=== PATIENT | male | born 1965 | race Caucasian/White ===

== ENCOUNTER 2016-11-18 17:51 | Inpatient (IN) | payer MEDICAID ==
[2016-11-18] MEDS ORDERED: Acetaminophen 650 MG in Premix Bag 1 BAG IV ONE (18:27)
[2016-11-18] MEDS ORDERED: Sodium Chloride 0.9% 1,000 ML IV SCH (18:30)
[2016-11-18] MEDS ORDERED: Acetaminophen 1,000 MG in Premix Bag 1 BAG IV ONE (18:41)
[2016-11-18] MEDS ORDERED: Piperacillin/Tazobactam 4.5 GM in Sodium Chloride 0.9% 100 ML IV SCH (19:00)
[2016-11-18] MEDS ORDERED: Insulin Regular, Human 100 Units/ML 10 ML Vial IVPUSH ONE (20:03)
[2016-11-18] MEDS ORDERED: Sodium Chloride 0.9% 100 ML IV ONE (20:34)
[2016-11-18] MEDS ORDERED: Sodium Chloride 0.9% 10 ML Syringe FLUSH PRN (20:34)
[2016-11-18] MEDS ORDERED: Iopamidol 755 Mg/ML 100 ML Bottle IV SCH (20:45)
--- NOTE | 2016-11-18 22:41 | EDM.PDOC ---
ED HPI GENERAL MEDICAL PROBLEM - General Chief Complaint: Gastrointestinal Problem Stated Complaint: NAUSEA/VOMITING/FOOD POISONING? Time Seen by Provider: 11/18/16 18:22 Source of Information: Reports: Patient History Limitations: Reports: No Limitations - History of Present Illness INITIAL COMMENTS - FREE TEXT/NARRATIVE: History of present illness: [51-year-old diabetic male who weighs 150 kg presenting with a 4 day history of nausea vomiting and fever and chills. He's had a slight cough and a little shortness of breath but otherwise no complaints. He has no chest pain no constipation or diarrhea and no dysuria. He has no dental pain or sinus pain or sore throat. He states he does have diabetic peripheral neuropathy.] Review of systems: As per history of present illness and below otherwise all systems reviewed and negative. Past medical history: As per history of present illness and as reviewed below otherwise noncontributory. Surgical history: As per history of present illness and as reviewed below otherwise noncontributory. Social history: No reported history of drug or alcohol abuse. Family history: As per history of present illness and as reviewed below otherwise noncontributory. Physical exam: HEENT: Atraumatic, normocephalic, pupils reactive, negative for conjunctival pallor or scleral icterus, mucous membranes moist, throat clear, neck supple, nontender, trachea midline. Lungs: Clear to auscultation anteriorly trouble sitting up in bed so I did not listen posteriorly, chest nontender. Heart: S1S2, regular, negative for clicks, rubs, or JVD. Abdomen: Soft, nondistended, nontender. Massively obese. Negative for masses or hepatosplenomegaly. Negative for costovertebral tenderness. Pelvis: Stable nontender. Genitourinary: Deferred. Rectal: Deferred. Extremities: Atraumatic, negative for cords or calf pain. Neurovascular unremarkable. Neuro: Awake, alert, oriented. Cranial nerves II through XII unremarkable. Cerebellum unremarkable. Motor and sensory unremarkable throughout. Exam nonfocal. Diagnostics: [CBC showed a normal white count but a left shift. D-dimer was over 2000 BNP was also elevated. CRP was high. Urinalysis is consistent with UTI. CT of the chest abdomen and pelvis revealed evidence for bibasilar consolidations that I believe are consistent with pneumonia and also bilateral pyelonephritis. See the report for details.] Therapeutics: [He's received IV fluids and a dose of IV Zosyn while in the ER.] Impression: [Bilateral pneumonia Bilateral pyelonephritis Diabetes mellitus] Plan: [I spoke with Dr. Mayo will be admitting him to [facility] as an inpatient and he'll be coming in to see him.] Definitive disposition and diagnosis as appropriate pending reevaluation and review of above. Abdomen Pain Score (Numeric/FACES): 3 - Related Data Allergies Allergy/AdvReac Type Severity Reaction Status Date / Time No Known Allergies Allergy Verified 04/01/15 12:28 Home Meds: Home Meds Atenolol [Tenormin] 25 mg PO DAILY 02/27/13 [History] metFORMIN [metFORMIN XR] 1,000 mg PO BID 02/27/13 [History] glipiZIDE [Glipizide] 10 mg PO BID 07/01/14 [History] Gabapentin [Neurontin] 600 mg PO BEDTIME 10/01/14 [History] Past Medical History HEENT History: Reports: Impaired Vision Cardiovascular History: Reports: Hypertension Musculoskeletal History: Reports: Other (See Below) Other Musculoskeletal History: neuropathy Neurological History: Reports: Vertigo Endocrine/Metabolic History: Reports: Diabetes, Type II - Infectious Disease History Infectious Disease History: Reports: Chicken Pox Social & Family History - Tobacco Use Smoking Status *Q: Never Smoker Years of Tobacco use: 12 Used Tobacco, but Quit: Yes Month Tobacco Last Used: 6 years Second Hand Smoke Exposure: No - Caffeine Use Caffeine Use: Reports: Coffee, Soda - Alcohol Use Days Per Week of Alcohol Use: 0 - Recreational Drug Use Recreational Drug Use: No ED ROS GENERAL - Review of Systems Review Of Systems: ROS reveals no pertinent complaints other than HPI. ED EXAM, GI/ABD - Physical Exam Exam: See Below Course - Vital Signs Last Recorded V/S: Last Vital Signs Temp 36.8 C 11/18/16 22:24 Pulse 83 11/18/16 22:24 Resp 16 11/18/16 22:24 BP 145/79 H 11/18/16 22:24 Pulse Ox 91 L 11/18/16 22:24 - Orders/Labs/Meds Orders: Active Orders 24 hr Category Date Time Status Admission Status [Patient Status] [ADT] Routine ADT 11/18/16 22:34 Ordered EKG Documentation Completion [RC] ASDIRECTED Care 11/18/16 18:24 Active Abdomen Pelvis w Cont [CT] Stat Exams 11/18/16 19:37 Taken Ang Chest [CT] Stat Exams 11/18/16 19:36 Taken Chest 1V Frontal [CR] Stat Exams 11/18/16 18:23 Taken CULTURE BLOOD [BC] Stat Lab 11/18/16 18:25 Received CULTURE BLOOD [BC] Stat Lab 11/18/16 18:35 Received CULTURE URINE [RM] Stat Lab 11/18/16 22:00 Received Iopamidol [Isovue-370 (76%)] Med 11/18/16 20:45 Active 100 ml IV . DIRECTED Piperacillin/Tazobactam [Zosyn] 4.5 gm Med 11/18/16 19:00 Active Sodium Chloride 0.9% [Normal Saline] 100 ml IV Q6H Sodium Chloride 0.9% [Normal Saline] 1,000 ml Med 11/18/16 18:30 Active IV ASDIRECTED Sodium Chloride 0.9% [Saline Flush] Med 11/18/16 20:34 Active 10 ml FLUSH ONETIME PRN EKG 12 Lead [EK] Stat Ther 11/18/16 18:23 Ordered Medication Orders Sodium Chloride (Normal Saline) 1,000 mls @ 300 mls/hr IV ASDIRECTED [facility] Last Admin: 11/18/16 18:45 Dose: 300 mls/hr Piperacillin Sod/Tazobactam (Sod 4.5 gm/ Sodium Chloride) 100 mls @ 200 mls/hr IV Q6H [facility] Last Admin: 11/18/16 19:28 Dose: 200 mls/hr Iopamidol (Isovue-370 (76%)) 100 ml IV . DIRECTED [facility] Last Admin: 11/18/16 21:12 Dose: 100 ml Sodium Chloride (Saline Flush) 10 ml FLUSH ONETIME PRN PRN Reason: PER RADIOLOGY PROTOCOL Labs: Laboratory Tests 11/18/16 11/18/16 11/18/16 Range/Units 18:25 18:25 18:25 WBC 9.0 (4.5-11.0) K/uL RBC 4.18 L (4.30-5.90) M/uL Hgb 13.0 (12.0-15.0) g/dL Hct 38.0 L (40.0-54.0) % MCV 91 (80-98) fL MCH 31 (27-31) pg MCHC 34 (32-36) % Plt Count 183 (150-400) K/uL Neut % (Auto) 84 H (36-66) % Lymph % (Auto) 7 L (24-44) % Towns % (Auto) 8 H (2-6) % Eos % (Auto) 0 L (2-4) % Baso % (Auto) 0 (0-1) % D-Dimer, Quantitative (0.0-400.0) ng/mL Sodium 135 L (140-148) mmol/L Potassium 3.7 (3.6-5.2) mmol/L Chloride 97 L (100-108) mmol/L Carbon Dioxide 31 (21-32) mmol/L Anion Gap 10.7 (5.0-14.0) mmol/L BUN 15 D (7-18) mg/dL Creatinine 0.9 D (0.8-1.3) mg/dL Est Cr Clr Drug Dosing 97.10 mL/min Estimated GFR (MDRD) > 60 (>60) Glucose 385 H (74-106) mg/dL Lactic Acid 1.7 (0.4-2.0) mmol/L Calcium 9.0 (8.5-10.1) mg/dL Total Bilirubin 0.8 (0.2-1.0) mg/dL AST 25 (15-37) U/L ALT 30 (12-78) U/L Alkaline Phosphatase 86 (46-116) U/L Troponin I < 0.017 (0.000-0.056) ng/mL C-Reactive Protein 25.34 H (0.0-0.3) mg/dL Iwa-G-Iirfzlhvvcs Pept (5-125) pg/mL Total Protein 7.4 (6.4-8.2) g/dL Albumin 2.4 L (3.4-5.0) g/dL Globulin 5.0 H (2.3-3.5) g/dL Albumin/Globulin Ratio 0.5 L (1.2-2.2) Amylase 33 (25-115) U/L Lipase 45 L (73-393) U/L Urine Color Urine Appearance Urine pH (4.5-8.0) Ur Specific [place] (1.008-1.030) Urine Protein (NEGATIVE) mg/dL Urine Glucose (UA) (NEGATIVE) mg/dL Urine Ketones (NEGATIVE) mg/dL Urine Occult Blood (NEGATIVE) Urine Nitrite (NEGAITVE) Urine Bilirubin (NEGATIVE) Urine Urobilinogen (NORMAL) mg/dL Ur Leukocyte Esterase (NEGATIVE) Urine RBC (0-5) Urine WBC (0-5) Ur Epithelial Cells Amorphous Sediment Urine Bacteria Urine Mucus 11/18/16 11/18/16 11/18/16 Range/Units 18:25 18:25 19:43 WBC (4.5-11.0) K/uL RBC (4.30-5.90) M/uL Hgb (12.0-15.0) g/dL Hct (40.0-54.0) % MCV (80-98) fL MCH (27-31) pg MCHC (32-36) % Plt Count (150-400) K/uL Neut % (Auto) (36-66) % Lymph % (Auto) (24-44) % Towns % (Auto) (2-6) % Eos % (Auto) (2-4) % Baso % (Auto) (0-1) % D-Dimer, Quantitative 2930 H (0.0-400.0) ng/mL Sodium (140-148) mmol/L Potassium (3.6-5.2) mmol/L Chloride (100-108) mmol/L Carbon Dioxide (21-32) mmol/L Anion Gap (5.0-14.0) mmol/L BUN (7-18) mg/dL Creatinine (0.8-1.3) mg/dL Est Cr Clr Drug Dosing mL/min Estimated GFR (MDRD) (>60) Glucose (74-106) mg/dL Lactic Acid (0.4-2.0) mmol/L Calcium (8.5-10.1) mg/dL Total Bilirubin (0.2-1.0) mg/dL AST (15-37) U/L ALT (12-78) U/L Alkaline Phosphatase (46-116) U/L Troponin I (0.000-0.056) ng/mL C-Reactive Protein (0.0-0.3) mg/dL Idn-W-Vqgdtsueuiy Pept 1629 H (5-125) pg/mL Total Protein (6.4-8.2) g/dL Albumin (3.4-5.0) g/dL Globulin (2.3-3.5) g/dL Albumin/Globulin Ratio (1.2-2.2) Amylase (25-115) U/L Lipase (73-393) U/L Urine Color Yellow Urine Appearance Slightly cloudy Urine pH 6.0 (4.5-8.0) Ur Specific [place] 1.015 (1.008-1.030) Urine Protein 100 H (NEGATIVE) mg/dL Urine Glucose (UA) 1000 H (NEGATIVE) mg/dL Urine Ketones 50 H (NEGATIVE) mg/dL Urine Occult Blood Large (NEGATIVE) Urine Nitrite Positive H (NEGAITVE) Urine Bilirubin Negative (NEGATIVE) Urine Urobilinogen Normal (NORMAL) mg/dL Ur Leukocyte Esterase Small (NEGATIVE) Urine RBC 30-40 H (0-5) Urine WBC 10-20 H (0-5) Ur Epithelial Cells Few Amorphous Sediment Not seen Urine Bacteria Many Urine Mucus Not seen Meds: Medications Generic Name Dose Route Start Last Admin Trade Name Freq PRN Reason Stop Dose Admin Sodium Chloride 1,000 mls @ 300 mls/hr 11/18/16 18:30 11/18/16 18:45 Normal Saline IV 300 mls/hr ASDIRECTED BUDDY Administration Piperacillin Sod/Tazobactam 100 mls @ 200 mls/hr 11/18/16 19:00 11/18/16 19: 28 Sod 4.5 gm/ Sodium Chloride IV 200 mls/hr Q6H BUDDY Administration Iopamidol 100 ml 11/18/16 20:45 11/18/16 21:12 Isovue-370 (76%) IV 100 ml . DIRECTED BUDDY Administration Sodium Chloride 10 ml 11/18/16 20:34 Saline Flush FLUSH ONETIME PRN PER RADIOLOGY PROTOCOL Discontinued Medications Generic Name Dose Route Start Last Admin Trade Name Freq PRN Reason Stop Dose Admin Acetaminophen 650 mg/ Premix 65 mls @ 400 mls/hr 11/18/16 18:27 11/18/16 18: 47 IV 11/18/16 18:36 Not Given NOW ONE Acetaminophen 1,000 mg/ Premix 100 mls @ 400 mls/hr 11/18/16 18:41 11/18/16 18:46 IV 11/18/16 18:55 400 mls/hr NOW ONE Administration Sodium Chloride 100 mls @ 3 mls/sec 11/18/16 20:34 11/18/16 21:05 Normal Saline IV 11/18/16 20:35 3 mls/sec ONETIME ONE Administration Insulin Human Regular 10 unit 11/18/16 20:03 11/18/16 20:36 Novolin R IVPUSH 11/18/16 20:04 10 units ONETIME ONE Administration Protocol Departure - Departure Time of Disposition: 22:40 Disposition: Admitted As Inpatient 66 Condition: Fair Clinical Impression: Pyelonephritis Pneumonia Qualifiers: Pneumonia type: due to unspecified organism Laterality: bilateral Lung location : lower lobe of lung Qualified Code(s): J18.9 - Pneumonia, unspecified organism - Discharge Information Forms: ED Department Discharge - My Orders Last 24 Hours: My Active Orders 11/18/16 18:23 Chest 1V Frontal [CR] Stat EKG 12 Lead [EK] Stat 11/18/16 18:24 EKG Documentation Completion [RC] ASDIRECTED 11/18/16 18:25 CULTURE BLOOD [BC] Stat 11/18/16 18:30 Sodium Chloride 0.9% [Normal Saline] 1,000 ml IV ASDIRECTED 11/18/16 18:35 CULTURE BLOOD [BC] Stat 11/18/16 19:00 Piperacillin/Tazobactam [Zosyn] 4.5 gm Sodium Chloride 0.9% [Normal Saline] 100 ml IV Q6H 11/18/16 19:36 Ang Chest [CT] Stat 11/18/16 19:37 Abdomen Pelvis w Cont [CT] Stat 11/18/16 20:34 Sodium Chloride 0.9% [Saline Flush] 10 ml FLUSH ONETIME PRN 11/18/16 20:45 Iopamidol [Isovue-370 (76%)] 100 ml IV . DIRECTED 11/18/16 22:00 CULTURE URINE [RM] Stat 11/18/16 22:34 Admission Status [Patient Status] [ADT] Routine - Assessment/Plan Last 24 Hours: My Active Orders 11/18/16 18:23 Chest 1V Frontal [CR] Stat EKG 12 Lead [EK] Stat 11/18/16 18:24 EKG Documentation Completion [RC] ASDIRECTED 11/18/16 18:25 CULTURE BLOOD [BC] Stat 11/18/16 18:30 Sodium Chloride 0.9% [Normal Saline] 1,000 ml IV ASDIRECTED 11/18/16 18:35 CULTURE BLOOD [BC] Stat 11/18/16 19:00 Piperacillin/Tazobactam [Zosyn] 4.5 gm Sodium Chloride 0.9% [Normal Saline] 100 ml IV Q6H 11/18/16 19:36 Ang Chest [CT] Stat 11/18/16 19:37 Abdomen Pelvis w Cont [CT] Stat 11/18/16 20:34 Sodium Chloride 0.9% [Saline Flush] 10 ml FLUSH ONETIME PRN 11/18/16 20:45 Iopamidol [Isovue-370 (76%)] 100 ml IV . DIRECTED 11/18/16 22:00 CULTURE URINE [RM] Stat 11/18/16 22:34 Admission Status [Patient Status] [ADT] Routine
[2016-11-18] MEDS ORDERED: Piperacillin/Tazobactam 3.375 GM in Sodium Chloride 0.9% 50 ML IV SCH (23:45)
[2016-11-19] MEDS ORDERED: Pantoprazole 40 MG Vial IVPUSH SCH ×2 (00:30→21:00)
[2016-11-19] MEDS: Sodium Chloride 0.9% 1,000 ML IV SCH ×4 (00:40→23:09)
[2016-11-19] MEDS ORDERED: Piperacillin/Tazobactam 3.375 GM in Sodium Chloride 0.9% 50 ML IV SCH ×2 (01:00→02:00)
--- NOTE | 2016-11-19 01:59 | HP ---
IDENTIFYING DATA: Mr. Roberto Carlos Rosales is a 51-year-old single male from [place]. CHIEF COMPLAINT: Nausea and vomiting. HISTORY OF PRESENT ILLNESS: Adult male with history of type 2 diabetes, on oral diabetic medication as well as hypertension and hyperlipidemia presents to the emergency room noting a 5-day history of upper abdominal discomfort, nausea, recurrent retching, and scant emesis as well as early satiety. He has had sensation of fevers and chilling. Bowel movements are regular without diarrhea, melena, or hematochezia. He has had mild aching at the lower back. He is voiding with good regularity noting chronic history of nocturia x2. He has had no incontinence, dysuria, or gross hematuria noted. He has had no previous abdominal surgeries. Prior hospitalizations only for an episode of ureterolithiasis in the remote past as well as I and D of scrotal abscess 1 year ago. Having difficulty with ingestion of food and fluids, he presents to the emergency room for evaluation, and lab and imaging suggested possible bilateral basilar pneumonia and/or accompanying bilateral pyelonephritis. PAST MEDICAL HISTORY: Type 2 diabetes, does not monitor blood sugars, does use Glucotrol and metformin on a regular basis. In addition, he has a history of hypertension and hyperlipidemia. He denies any history of diabetic complications. Specifically, no history of strokes, focal weakness, glaucoma, retinopathy, ischemic heart disease, chest pain, palpitations, diminished exercise tolerance, chronic renal disease, or peripheral vascular disease. He does have chronic neuropathy with use of gabapentin. HABITS: Nonsmoker. Rare use of alcohol in social settings. Caffeine intake averages one cup of coffee daily. ALLERGIES: NONE NOTED. MEDICATIONS: Amlodipine 10 mg daily, atenolol 50 mg daily, Neurontin 600 mg at bedtime, losartan 50 mg daily, Glucotrol 5 mg b.i.d., metformin 1000 mg b.i.d., and ibuprofen use p.r.n. for symptom management. IMMUNIZATIONS: Pneumococcal vaccine provided in 2015, tetanus in 2009, does not receive annual influenza vaccines. 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 FAMILY HISTORY: Denies familial history of recent acute illnesses or chronic infections. REVIEW OF SYSTEMS: NEUROLOGIC: No hearing loss, glaucoma, cataracts, retinopathy, stroke, seizures, headaches, or focal weakness. GENERAL: Fatigue is noted with illness of 5 days' duration. CARDIAC: Hypertension and hyperlipidemia. Denies any history of ischemic heart disease, chest pain, palpitations, syncope, congestive heart failure, or rheumatic fever. RESPIRATORY: Mild cough with minimal sputum production. No shortness of breath, wheeze, COPD, or asthma by history. He is a lifelong nonsmoker. GASTROINTESTINAL: As above. No history of hepatitis, jaundice, gallbladder disease, melena, or hematochezia. GENITOURINARY: Previous scrotal abscess. No chronic renal disease. No recent hematuria or ureterocolic. MUSCULOSKELETAL: Without arthralgias, general aching reported currently. PHYSICAL EXAMINATION: GENERAL: Appearance is that of an adult male resting comfortably on bed. VITAL SIGNS: Initial vitals temperature 36.8, respiratory rate 16, O2 saturation 91% on room air, blood pressure 145/79, pulse 83 and regular sinus rhythm. HEENT: Ears show normal canals and TMs. Pupils equal and reactive. Sclerae anicteric. No nasal congestion. No oropharyngeal lesions. Mucosa is dry in appearance. No inflammatory posterior pharyngeal changes. NECK: Brisk, regular carotid pulses. No bruits, JVD, adenopathy, or thyromegaly. No stridor or nuchal rigidity. LUNGS: Occasional mild rhonchi clearing with cough. Non-tachypneic. No wheezes or rales heard. Resonant to percussion. No retractions. HEART: Regular without murmurs or gallops noted. ABDOMEN: Obese, soft, nontender. No organomegaly. Active sounds. Good femoral pulses. No abdominal bruits. No percussion tenderness over the flanks. GENITOURINARY: Omitted. RECTAL: Omitted. EXTREMITIES: Warm and pink. No pitting edema. Non-diaphoretic. No cyanosis. Good radial, posterior tibial, and dorsal pedal regions. No open or ischemic skin changes. Symmetrical strength in the upper and lower extremities. LABORATORY DATA: On admission; WBC 9, hemoglobin 13, hematocrit 38, and platelet count 183,000. Sodium 135, potassium 3.7, BUN 15, creatinine 0.9, glucose elevated at 385 with calcium of 9.0, and lactic acid 1.7. Alkaline phosphatase 86 and AST 25. Troponin less than 0.017. CRP is elevated at 25. D-dimer 2930. Urinalysis reveals specific gravity of 1.015, positive dipstick for protein, glucose, ketones in blood and 10 to 20 wbc's per high- power field, 30 to 40 rbc's and positive bacteria. Urine and blood cultures are pending. CT imaging and chest x-ray suggest bilateral consolidation in the lower lung martinez as well as suggestion of bilateral pyelonephritis by imaging. IMPRESSION: 1. Presentation of fever, weakness, GI upset, and probable bilateral pyelonephritis with possible accompanying pneumonitis. 2. History of type 2 diabetes. 3. Hypertension. 4. Hyperlipidemia. 5. Peripheral neuropathy secondary to diabetic condition. PLAN: With the patient's inability to manage symptoms as an outpatient, he is admitted to [facility] inpatient status, full code status will be implemented. We will provide IV fluids, p.r.n. antiemetics, broad-spectrum antibiotics as we await blood and urine cultures. Continue to monitor blood sugars on a scheduled basis with meals and at bedtime and in addition to Glucotrol and metformin. Provide subcu NovoLog p.r.n. for blood sugars of greater than 200 mg%. We will administer IV Protonix for reasons of upper abdominal discomfort and recurrent nausea. Followup labs including blood sugar monitoring and metabolic panel are requested. Anticipate hospital stay of less than 92 hours. Candido Mackey MD /[id number]
--- NOTE | 2016-11-19 05:55 | PN ---
DATE OF SERVICE: 11/19/2016 SUBJECTIVE: A 51-year-old male was admitted yesterday evening with fevers, chills, and abdominal upset of 5 days duration. Evaluation revealed evidence of bibasilar infiltrates by chest CT as well as potential pyelonephritis with radiographic imaging identifying changes on abdominal CT. Additionally, he had hematuria, pyuria, and scant bacteria by lab review. He has rested comfortably through the night, voiding with good regularity with IV fluids. Notes with rehydration abdominal upset has resolved. He has had a mild nonproductive cough and recurrent transient desaturations when up to the restroom. Denies sputum production. No fevers or chills through the night. OBJECTIVE: VITAL SIGNS: Temperature 37.3, respiratory rate 19, O2 sats 90% on supplemental O2 at 2 L/minute, blood pressure 183/91, pulse rate 96, sinus rhythm by monitoring. NECK: Brisk carotid pulses. No bruits. LUNGS: Mild expiratory rhonchi. No wheezes or rales heard. Resonant to percussion. HEART: Regular without murmurs or gallops. ABDOMEN: Obese, soft, and nontender. No organomegaly. Active sounds. No guarding, rebound, or referred pain. EXTREMITIES: Warm and pink. No open skin lesions. BMP is ordered this morning with results pending. IMPRESSION AND PLAN: Presentation of earlier fever, chills, elevated CRP, and suggestion of bibasilar pneumonia by CT imaging. We will continue with systemic antibiotics with IV Zosyn, fluid hydration, and diabetic monitoring with administration of Glucotrol, metformin, and p.r.n. NovoLog. Allow light activity as tolerated. Continue to monitor O2 sats with supplemental O2 provided. Broad-spectrum antibiotic should also provide reasonable coverage for identified bacteria and urinalysis. Anticipate ongoing systemic antibiotics with parenteral route of administration and potential transition to oral antibiotics and outpatient followup. If showing interval improvement over the next 24-48 hours, we will request that hospitalist service assume care of the patient. Candido Mackey MD /[id number]
[2016-11-19] MEDS ORDERED: Insulin Aspart 100 Units/ML 3 ML Pen SUBCUT SCH ×2 (07:30)
--- NOTE | 2016-11-19 08:29 | CR ---
Heart size within normal limits. Pulmonary vasculature within normal limits. No definitive focal con solidation.
[2016-11-19] MEDS: metFORMIN 500 MG Tab PO SCH ×2 (08:54→17:36)
[2016-11-19] MEDS: glipiZIDE 5 MG Tab PO SCH ×2 (08:55→17:36)
[2016-11-19] MEDS: Losartan 50 MG Tab PO SCH ×2 (08:55→22:11)
[2016-11-19] MEDS: Piperacillin/Tazobactam/Dext 3.375 GM in Premix Bag 1 BAG IV SCH ×3 (08:58→20:23)
[2016-11-19] MEDS: Ondansetron 4 MG/2 ML SDV IV PRN (09:08)
[2016-11-19] MEDS: Atenolol 25 MG Tab PO SCH (09:25)
[2016-11-19] MEDS: Insulin Aspart 100 Units/ML 3 ML Pen SUBCUT SCH ×3 (13:10→22:01)
[2016-11-19] MEDS: Acetaminophen 325 MG Tab PO PRN ×2 (14:57→20:38)
[2016-11-19] MEDS: Gabapentin 300 MG Cap PO SCH (22:01)
[2016-11-19] MEDS: Pantoprazole 40 MG Tab.CR PO SCH (22:02)
[2016-11-19] MEDS: amLODIPine 10 MG Tab PO SCH (22:04)
[2016-11-20] MEDS: Piperacillin/Tazobactam/Dext 3.375 GM in Premix Bag 1 BAG IV SCH ×4 (02:52→21:00)
[2016-11-20] MEDS: Sodium Chloride 0.9% 1,000 ML IV SCH (07:46)
[2016-11-20] MEDS: metFORMIN 500 MG Tab PO SCH ×2 (07:46→16:47)
[2016-11-20] MEDS: glipiZIDE 5 MG Tab PO SCH ×2 (07:47→16:48)
[2016-11-20] MEDS: Insulin Aspart 100 Units/ML 3 ML Pen SUBCUT SCH ×4 (07:51→22:08)
[2016-11-20] MEDS: Atenolol 25 MG Tab PO SCH ×2 (07:57→08:22)
[2016-11-20] MEDS: Losartan 50 MG Tab PO SCH ×3 (07:57→21:47)
[2016-11-20] MEDS: Potassium Chloride 20 MEQ Tab.ER PO SCH ×2 (09:00→16:48)
[2016-11-20] MEDS ORDERED: Sodium Chloride 0.9% 1,000 ML IV SCH (14:51)
--- NOTE | 2016-11-20 14:52 | PCM.PN ---
- General Info Date of Service: 11/20/16 Functional Status: Reports: Pain Controlled, Tolerating Diet, Ambulating - Review of Systems General: Reports: Fever, Weakness Gastrointestinal: Reports: Abdominal Pain Systems Review Comment:: No acute events overnight. Abdominal pain has been slowly improving. Appetite is getting a little better. Fever curve is improving. Blood sugar still moderately elevated. He is coughing a little bit more today but does not feel significantly short of breath. One blood culture and his urine culture growing gram-negative rods. Tolerating current antibiotics well. - Patient Data Vitals - Most Recent: Last Vital Signs Temp 37.5 C 11/20/16 10:32 Pulse 86 11/20/16 10:32 Resp 20 11/20/16 10:32 BP 133/79 11/20/16 10:32 Pulse Ox 92 L 11/20/16 10:32 Weight - Most Recent: 138.4 kg I&O - Last 24 Hours: Intake & Output 11/19/16 11/20/16 11/20/16 22:59 06:59 14:59 Intake Total 1831 1895 1400 Output Total 200 500 300 Balance 1631 1395 1100 Lab Results Last 24 Hours: Laboratory Results - last 24 hr 11/20/16 11/20/16 Range/Units 05:15 05:15 WBC 7.8 (4.5-11.0) K/uL RBC 3.82 L (4.30-5.90) M/uL Hgb 11.8 L (12.0-15.0) g/dL Hct 35.6 L (40.0-54.0) % MCV 93 (80-98) fL MCH 31 (27-31) pg MCHC 33 (32-36) % Plt Count 194 (150-400) K/uL Sodium 142 (140-148) mmol/L Potassium 3.2 L (3.6-5.2) mmol/L Chloride 104 (100-108) mmol/L Carbon Dioxide 32 (21-32) mmol/L Anion Gap 9.2 (5.0-14.0) mmol/L BUN 11 (7-18) mg/dL Creatinine 0.7 L (0.8-1.3) mg/dL Est Cr Clr Drug Dosing 124.43 mL/min Estimated GFR (MDRD) > 60 (>60) Glucose 186 H (74-106) mg/dL Calcium 7.9 L (8.5-10.1) mg/dL Med Orders - Current: Current Medications Acetaminophen (Tylenol) 650 mg PO Q4H PRN PRN Reason: Pain (Mild 1-3)/fever Last Admin: 11/19/16 20:38 Dose: 650 mg Amlodipine Besylate (Norvasc) 10 mg PO BEDTIME [facility] Last Admin: 11/19/16 22:04 Dose: 10 mg Atenolol (Tenormin) 25 mg PO DAILY [facility] Last Admin: 11/20/16 08:22 Dose: Not Given Gabapentin (Neurontin) 600 mg PO BEDTIME [facility] Last Admin: 11/19/16 22:01 Dose: 600 mg Glipizide (Glucotrol) 10 mg PO BIDMEALS [facility] Last Admin: 11/20/16 07:47 Dose: 10 mg Piperacillin/Tazobactam/ (Dextrose 3.375 gm/ Premix) 50 mls @ 100 mls/hr IV Q6H [facility] Last Admin: 11/20/16 07:49 Dose: 100 mls/hr Insulin Aspart (Novolog) 0 unit SUBCUT QIDACANDBED [facility] PRN Reason: Protocol Last Admin: 11/20/16 11:48 Dose: 6 units Iopamidol (Isovue-370 (76%)) 100 ml IV . DIRECTED [facility] Last Admin: 11/18/16 21:12 Dose: 100 ml Losartan Potassium (Cozaar) 50 mg PO BID [facility] Last Admin: 11/20/16 08:22 Dose: Not Given Metformin HCl (Glucophage) 1,000 mg PO BIDMEALS [facility] Last Admin: 11/20/16 07:46 Dose: 1,000 mg Ondansetron HCl (Zofran) 4 mg IV Q4H PRN PRN Reason: Nausea/Vomiting Last Admin: 11/19/16 09:08 Dose: 4 mg Pantoprazole Sodium (Protonix) 40 mg PO BEDTIME [facility] Last Admin: 11/19/16 22:02 Dose: 40 mg Potassium Chloride (Klor-Con M20) 40 meq PO BIDMEALS [facility] Last Admin: 11/20/16 09:00 Dose: 40 meq Sodium Chloride (Saline Flush) 10 ml FLUSH ONETIME PRN PRN Reason: PER RADIOLOGY PROTOCOL Discontinued Medications Sodium Chloride (Normal Saline) 1,000 mls @ 300 mls/hr IV ASDIRECTED [facility] Last Admin: 11/18/16 18:45 Dose: 300 mls/hr Acetaminophen 650 mg/ Premix 65 mls @ 400 mls/hr IV NOW ONE Stop: 11/18/16 18:36 Last Admin: 11/18/16 18:47 Dose: Not Given Acetaminophen 1,000 mg/ Premix 100 mls @ 400 mls/hr IV NOW ONE Stop: 11/18/16 18:55 Last Admin: 11/18/16 18:46 Dose: 400 mls/hr Piperacillin Sod/Tazobactam (Sod 4.5 gm/ Sodium Chloride) 100 mls @ 200 mls/hr IV Q6H [facility] Last Admin: 11/18/16 19:28 Dose: 200 mls/hr Sodium Chloride (Normal Saline) 100 mls @ 3 mls/sec IV ONETIME ONE Stop: 11/18/16 20:35 Last Admin: 11/18/16 21:05 Dose: 3 mls/sec Piperacillin Sod/Tazobactam (Sod 3.375 gm/ Sodium Chloride) 50 mls @ 100 mls/ hr IV Q6H [facility] Last Admin: 11/19/16 07:26 Dose: Not Given Sodium Chloride (Normal Saline) 1,000 mls @ 150 mls/hr IV ASDIRECTED [facility] Last Admin: 11/19/16 07:44 Dose: 150 mls/hr Piperacillin Sod/Tazobactam (Sod 3.375 gm/ Sodium Chloride) 50 mls @ 100 mls/ hr IV Q6H [facility] Piperacillin Sod/Tazobactam (Sod 3.375 gm/ Sodium Chloride) 50 mls @ 100 mls/ hr IV Q6H [facility] Last Admin: 11/19/16 02:18 Dose: 100 mls/hr Sodium Chloride (Normal Saline) 1,000 mls @ 125 mls/hr IV ASDIRECTED [facility] Last Admin: 11/20/16 07:46 Dose: 125 mls/hr Insulin Aspart (Novolog) 0 unit SUBCUT BIDAC [facility] Insulin Aspart (Novolog) 0 unit SUBCUT BIDAC [facility] Last Admin: 11/19/16 09:20 Dose: 5 units Insulin Human Regular (Novolin R) 10 unit IVPUSH ONETIME ONE PRN Reason: Protocol Stop: 11/18/16 20:04 Last Admin: 11/18/16 20:36 Dose: 10 units Pantoprazole Sodium (Protonix Iv) 40 mg IVPUSH Q24H [facility] Last Admin: 11/19/16 00:43 Dose: 40 mg Pantoprazole Sodium (Protonix Iv) 40 mg IVPUSH Q24H [facility] - Exam Quality Assessment: Supplemental Oxygen General: Alert, Oriented, Cooperative, No Acute Distress Neck: Supple Lungs: Normal Respiratory Effort, Rales (few at both bases). No: Wheezing Cardiovascular: Regular Rate, Regular Rhythm GI/Abdominal Exam: Soft, No Distention Extremities: No Pedal Edema. No: Increased Warmth Skin: Warm, Dry Psy/Mental Status: Alert, Normal Affect - Problem List Review Problem List Initiated/Reviewed/Updated: Yes - My Orders Last 24 Hours: My Active Orders 11/19/16 17:00 Insulin Aspart [NovoLOG] See Protocol SUBCUT QIDACANDBED 11/19/16 21:00 Pantoprazole [ProTONIX] 40 mg PO BEDTIME 11/20/16 09:00 Potassium Chloride [Klor-Con M20] 40 meq PO BIDMEALS 11/20/16 14:51 Sodium Chloride 0.9% [Normal Saline] 1,000 ml IV ASDIRECTED 11/21/16 05:00 BASIC METABOLIC PANEL,BMP [CHEM] Timed CBC W/O DIFF,HEMOGRAM [HEME] Timed (1) - Plan Plan:: Assessment and plan - Bilateral pyelonephritis - 1 blood culture and urine culture growing gram- negative rods. Tolerating current antibiotics and clinically improving. -Continue current antibiotics -Pain control -Saline lock IV fluids -Follow-up cultures Probable bilateral pneumonia - patchy lower lung infiltrates noted on CT scan though they were not impressive. Coughing a little bit and mildly hypoxic. Clinically improving. -Continue antibiotics -Wean oxygen as able Type 2 diabetes mellitus - Sugars moderately elevated at the time of presentation but have been improving. He is receiving supplemental insulin in addition to his usual home medications. -Continue home medications -Sliding-scale insulin Maintenance issues - - DVT prophylaxis - SCDs - GI prophylaxis - PPI - Nutrition - consistent carbohydrate diet Disposition - Anticipate discharge to home after the hospital stay Adrian Melton M.D.
[2016-11-20] MEDS: Sodium Chloride 0.9% 250 ML IV SCH (21:00)
[2016-11-20] MEDS: Pantoprazole 40 MG Tab.CR PO SCH (21:47)
[2016-11-20] MEDS: Gabapentin 300 MG Cap PO SCH (21:47)
[2016-11-20] MEDS: amLODIPine 10 MG Tab PO SCH (21:49)
[2016-11-20] MEDS: Acetaminophen 325 MG Tab PO PRN (21:53)
[2016-11-21] MEDS: Piperacillin/Tazobactam/Dext 3.375 GM in Premix Bag 1 BAG IV SCH ×4 (02:27→20:32)
[2016-11-21] MEDS: Ondansetron 4 MG/2 ML SDV IV PRN (05:21)
[2016-11-21] MEDS: Insulin Aspart 100 Units/ML 3 ML Pen SUBCUT SCH ×4 (07:29→20:39)
[2016-11-21] MEDS: metFORMIN 500 MG Tab PO SCH ×2 (07:30→17:28)
[2016-11-21] MEDS: glipiZIDE 5 MG Tab PO SCH ×2 (07:31→17:29)
[2016-11-21] MEDS: Potassium Chloride 20 MEQ Tab.ER PO SCH ×2 (07:32→17:29)
[2016-11-21] MEDS: Sodium Chloride 0.9% 250 ML IV SCH (07:36)
[2016-11-21] MEDS: Atenolol 25 MG Tab PO SCH (09:13)
[2016-11-21] MEDS: Losartan 50 MG Tab PO SCH ×2 (09:13→20:34)
--- NOTE | 2016-11-21 15:04 | PCM.PN ---
- General Info Date of Service: 11/21/16 Functional Status: Reports: Pain Controlled, Tolerating Diet, Ambulating - Review of Systems General: Denies: Fever Pulmonary: Reports: Cough Gastrointestinal: Denies: Abdominal Pain Systems Review Comment:: no acute events overnight. Abdominal pain has been improving. Fever curve is improving. Blood culture and urine culture are growing Klebsiella. Blood sugars have been improving. Cough is a little bit more productive. Still requiring a small quantity of supplemental oxygen. - Patient Data Vitals - Most Recent: Last Vital Signs Temp 37.1 C 11/21/16 14:00 Pulse 82 11/21/16 14:00 Resp 20 11/21/16 14:00 BP 157/81 H 11/21/16 14:00 Pulse Ox 95 11/21/16 14:00 Weight - Most Recent: 138.4 kg I&O - Last 24 Hours: Intake & Output 11/21/16 11/21/16 11/21/16 06:59 14:59 22:59 Intake Total 607 937 Output Total 600 850 Balance 7 87 Lab Results Last 24 Hours: Laboratory Results - last 24 hr 11/21/16 11/21/16 Range/Units 05:52 05:52 WBC 7.4 (4.5-11.0) K/uL RBC 3.70 L (4.30-5.90) M/uL Hgb 11.8 L (12.0-15.0) g/dL Hct 34.5 L (40.0-54.0) % MCV 93 (80-98) fL MCH 32 H (27-31) pg MCHC 34 (32-36) % Plt Count 231 (150-400) K/uL Sodium 143 (140-148) mmol/L Potassium 3.2 L (3.6-5.2) mmol/L Chloride 105 (100-108) mmol/L Carbon Dioxide 31 (21-32) mmol/L Anion Gap 10.2 (5.0-14.0) mmol/L BUN 8 (7-18) mg/dL Creatinine 0.7 L (0.8-1.3) mg/dL Est Cr Clr Drug Dosing 124.43 mL/min Estimated GFR (MDRD) > 60 (>60) Glucose 163 H (74-106) mg/dL Calcium 8.0 L (8.5-10.1) mg/dL Med Orders - Current: Current Medications Acetaminophen (Tylenol) 650 mg PO Q4H PRN PRN Reason: Pain (Mild 1-3)/fever Last Admin: 11/20/16 21:53 Dose: 650 mg Amlodipine Besylate (Norvasc) 10 mg PO BEDTIME [facility] Last Admin: 11/20/16 21:49 Dose: 10 mg Atenolol (Tenormin) 25 mg PO DAILY [facility] Last Admin: 11/21/16 09:13 Dose: 25 mg Gabapentin (Neurontin) 600 mg PO BEDTIME [facility] Last Admin: 11/20/16 21:47 Dose: 600 mg Glipizide (Glucotrol) 10 mg PO BIDMEALS [facility] Last Admin: 11/21/16 07:31 Dose: 10 mg Piperacillin/Tazobactam/ (Dextrose 3.375 gm/ Premix) 50 mls @ 100 mls/hr IV Q6H [facility] Stop: 11/22/16 02:00 Last Admin: 11/21/16 14:11 Dose: 100 mls/hr Sodium Chloride (Normal Saline) 250 mls @ 25 mls/hr IV ASDIRECTED [facility] Last Admin: 11/21/16 07:36 Dose: 25 mls/hr Insulin Aspart (Novolog) 0 unit SUBCUT QIDACANDBED [facility] PRN Reason: Protocol Last Admin: 11/21/16 12:12 Dose: 6 units Iopamidol (Isovue-370 (76%)) 100 ml IV . DIRECTED [facility] Last Admin: 11/18/16 21:12 Dose: 100 ml Losartan Potassium (Cozaar) 50 mg PO BID [facility] Last Admin: 11/21/16 09:13 Dose: 50 mg Metformin HCl (Glucophage) 1,000 mg PO BIDMEALS [facility] Last Admin: 11/21/16 07:30 Dose: 1,000 mg Ondansetron HCl (Zofran) 4 mg IV Q4H PRN PRN Reason: Nausea/Vomiting Last Admin: 11/21/16 05:21 Dose: 4 mg Pantoprazole Sodium (Protonix) 40 mg PO BEDTIME [facility] Last Admin: 11/20/16 21:47 Dose: 40 mg Potassium Chloride (Klor-Con M20) 40 meq PO BIDMEALS [facility] Last Admin: 11/21/16 07:32 Dose: 40 meq Sodium Chloride (Saline Flush) 10 ml FLUSH ONETIME PRN PRN Reason: PER RADIOLOGY PROTOCOL Discontinued Medications Sodium Chloride (Normal Saline) 1,000 mls @ 300 mls/hr IV ASDIRECTED [facility] Last Admin: 11/18/16 18:45 Dose: 300 mls/hr Acetaminophen 650 mg/ Premix 65 mls @ 400 mls/hr IV NOW ONE Stop: 11/18/16 18:36 Last Admin: 11/18/16 18:47 Dose: Not Given Acetaminophen 1,000 mg/ Premix 100 mls @ 400 mls/hr IV NOW ONE Stop: 11/18/16 18:55 Last Admin: 11/18/16 18:46 Dose: 400 mls/hr Piperacillin Sod/Tazobactam (Sod 4.5 gm/ Sodium Chloride) 100 mls @ 200 mls/hr IV Q6H [facility] Last Admin: 11/18/16 19:28 Dose: 200 mls/hr Sodium Chloride (Normal Saline) 100 mls @ 3 mls/sec IV ONETIME ONE Stop: 11/18/16 20:35 Last Admin: 11/18/16 21:05 Dose: 3 mls/sec Piperacillin Sod/Tazobactam (Sod 3.375 gm/ Sodium Chloride) 50 mls @ 100 mls/ hr IV Q6H [facility] Last Admin: 11/19/16 07:26 Dose: Not Given Sodium Chloride (Normal Saline) 1,000 mls @ 150 mls/hr IV ASDIRECTED [facility] Last Admin: 11/19/16 07:44 Dose: 150 mls/hr Piperacillin Sod/Tazobactam (Sod 3.375 gm/ Sodium Chloride) 50 mls @ 100 mls/ hr IV Q6H [facility] Piperacillin Sod/Tazobactam (Sod 3.375 gm/ Sodium Chloride) 50 mls @ 100 mls/ hr IV Q6H [facility] Last Admin: 11/19/16 02:18 Dose: 100 mls/hr Sodium Chloride (Normal Saline) 1,000 mls @ 125 mls/hr IV ASDIRECTED [facility] Last Admin: 11/20/16 07:46 Dose: 125 mls/hr Sodium Chloride (Normal Saline) 1,000 mls @ 25 mls/hr IV ASDIRECTED [facility] Insulin Aspart (Novolog) 0 unit SUBCUT BIDAC [facility] Insulin Aspart (Novolog) 0 unit SUBCUT BIDAC [facility] Last Admin: 11/19/16 09:20 Dose: 5 units Insulin Human Regular (Novolin R) 10 unit IVPUSH ONETIME ONE PRN Reason: Protocol Stop: 11/18/16 20:04 Last Admin: 11/18/16 20:36 Dose: 10 units Pantoprazole Sodium (Protonix Iv) 40 mg IVPUSH Q24H [facility] Last Admin: 11/19/16 00:43 Dose: 40 mg Pantoprazole Sodium (Protonix Iv) 40 mg IVPUSH Q24H [facility] - Exam Quality Assessment: Supplemental Oxygen General: Alert, Oriented, Cooperative, No Acute Distress Neck: Supple Lungs: Normal Respiratory Effort, Rales (few right lung base) Cardiovascular: Regular Rate, Regular Rhythm GI/Abdominal Exam: Soft, No Distention Extremities: No Pedal Edema. No: Increased Warmth Skin: Warm, Dry Psy/Mental Status: Alert, Normal Affect - Problem List Review Problem List Initiated/Reviewed/Updated: Yes - My Orders Last 24 Hours: My Active Orders 11/20/16 22:07 Sodium Chloride 0.9% [Normal Saline] 250 ml IV ASDIRECTED 11/22/16 05:00 BASIC METABOLIC PANEL,BMP [CHEM] Timed 11/22/16 09:00 Amoxicillin/Clavulanate K [Augmentin 875 MG/125 MG] 1 tab PO BID - Plan Plan:: Assessment and plan - Bilateral pyelonephritis - cultures growing Klebsiella that is nearly pansensitive. -Continue current antibiotics today, transition to oral medications in the morning -Pain control -Saline lock IV fluids Bilateral pneumonia - patchy lower lung infiltrates noted on CT scan though they were not impressive. Coughing a little bit and still mildly hypoxic. Clinically improving. -Continue antibiotics -Wean oxygen as able Type 2 diabetes mellitus - Sugars have been improving with treatment for the infection. -Continue home medications -Sliding-scale insulin Maintenance issues - - DVT prophylaxis - SCDs - GI prophylaxis - PPI - Nutrition - consistent carbohydrate diet Disposition - Anticipate discharge to home after the hospital stay, hopefully tomorrow if we can wean him off the supplemental oxygen. Adrian Melton M.D.
[2016-11-21] MEDS: amLODIPine 10 MG Tab PO SCH (20:34)
[2016-11-21] MEDS: Pantoprazole 40 MG Tab.CR PO SCH (20:34)
[2016-11-21] MEDS: Gabapentin 300 MG Cap PO SCH (20:34)
[2016-11-22] MEDS: Piperacillin/Tazobactam/Dext 3.375 GM in Premix Bag 1 BAG IV SCH (02:12)
[2016-11-22 07:43] VITALS: BP 137/80
[2016-11-22] MEDS: Atenolol 25 MG Tab PO SCH (08:40)
[2016-11-22] MEDS: Losartan 50 MG Tab PO SCH (08:40)
[2016-11-22] MEDS: metFORMIN 500 MG Tab PO SCH (08:40)
[2016-11-22] MEDS: glipiZIDE 5 MG Tab PO SCH (08:41)
[2016-11-22] MEDS: Potassium Chloride 20 MEQ Tab.ER PO SCH (08:41)
[2016-11-22] MEDS: Insulin Aspart 100 Units/ML 3 ML Pen SUBCUT SCH ×2 (08:41→11:37)
[2016-11-22] MEDS ORDERED: Amoxicillin/Clavulanate K 875-125 MG Tab PO SCH (09:00)
--- NOTE | 2016-11-22 11:53 | PCM.DCSUM1 ---
Discharge Summary - Hospital Course Brief History: 51-year-old male with history of diabetes and obesity who presented with fever, abdominal pain and vomiting. He was admitted for management of bilateral pyelonephritis and bilateral pneumonia. - Discharge Data Discharge Date: 11/22/16 Discharge Disposition: Home, Self-Care 01 Condition: Good - Discharge Diagnosis/Problem(s) (1) Pneumonia SNOMED Code(s): 135431219 ICD Code: J18.9 - PNEUMONIA, UNSPECIFIED ORGANISM Status: Acute Qualifiers: Pneumonia type: due to Klebsiella pneumoniae Laterality: bilateral Lung location: lower lobe of lung Qualified Code(s): J15.0 - Pneumonia due to Klebsiella pneumoniae (2) Pyelonephritis SNOMED Code(s): 63356941 ICD Code: N12 - TUBULO-INTERSTITIAL NEPHRITIS, NOT SPCF ACUTE OR CHRONIC Status: Acute (3) Diabetes mellitus SNOMED Code(s): 72268885 ICD Code: E11.9 - TYPE 2 DIABETES MELLITUS WITHOUT COMPLICATIONS Status: Chronic Qualifiers: Diabetes mellitus type: type 2 Diabetes mellitus complication status: with neurologic complications Diabetes mellitus complication detail: with polyneuropathy 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 Workup in the emergency room was suggestive of both bilateral pyelonephritis as well as a bilateral lower lobe pneumonia. There was significant hyperglycemia at the time of presentation. He was admitted to the hospital and started on broad-spectrum antibiotics. We provided fluids and insulin as well as supplemental oxygen and symptom management. Overnight following admission there were no acute issues. Blood sugars did trend down. Vital signs were stable other than his mild hypoxia. Broad-spectrum antibiotics were continued and over the next couple of days he did show slow but steady improvement. His abdominal pain with nausea and vomiting both improved and resolved. His urine culture grew out Klebsiella which was essentially pansensitive. His respiratory status has made slow but steady improvement with antibiotic therapy and we've been able to wean him off supplemental oxygen. He has had steady improvement in his strength and has been ambulating and getting around independently. Blood sugar control has improved during the course of the hospital stay. I was able to transition him to oral antibiotics with no change in his condition. I believe he is safe for outpatient management at this time. I have elected for a slightly longer course of antibiotics given his bilateral pyelonephritis on top of his bilateral pneumonia. He will continue his usual diabetes medications. Follow-up will be as needed if symptoms do not continue to improve. - Patient Instructions Diet: Diabetic Diet Activity: As Tolerated Driving: May Drive Today Showering/Bathing: May Shower Notify Provider of: Fever, Increased Pain, Nausea and/or Vomiting Other/Special Instructions: 1. You were in the hospital for management of both bilateral pneumonia and bilateral pyelonephritis. Both of these conditions are improving with antibiotic therapy. I recommend 7 additional days of antibiotic therapy with amoxicillin/clavulanic acid (Augmentin). You should take this medication twice daily with food to avoid stomach upset. 2. You may maintain activity as tolerated but I would recommend avoiding strenuous activities for the next several days. Slowly build up your activity and your endurance. 3. Please follow-up if your symptoms do not continue to get better or if they get worse. 4. Please seek immediate medical attention if you develop fever greater than 101, have acute onset of shortness of breath, persistent vomiting or severe abdominal pain. - Discharge Plan Prescriptions/Med Rec: Amoxicillin/Clavulanate K [Augmentin 875-125 MG] 1 tab PO BID #14 tablet Home Medications: Home Meds Atenolol [Tenormin] 25 mg PO DAILY 02/27/13 [History] glipiZIDE [Glipizide] 10 mg PO BID 07/01/14 [History] Gabapentin [Neurontin] 600 mg PO BEDTIME 10/01/14 [History] metFORMIN HCl [Metformin HCl] 1,000 mg PO BIDAC 11/19/16 [History] Amoxicillin/Clavulanate K [Augmentin 875-125 MG] 1 tab PO BID #14 tablet [Rx] Patient Handouts: Pyelonephritis, Adult, Amoxicillin; Clavulanic Acid tablets Referrals: Dwayne Pacheco MD [Primary Care Provider] - (follow-up with Dr. Pacheco if your symptoms do not continue to improve or if they get worse) - Discharge Summary/Plan Comment DC Time >30 min.: No (25) - Patient Data Vitals - Most Recent: Last Vital Signs Temp 36.3 C 11/22/16 07:40 Pulse 55 L 11/22/16 08:40 Resp 18 11/22/16 07:40 BP 137/80 11/22/16 08:40 Pulse Ox 99 11/22/16 07:40 Weight - Most Recent: 138.4 kg I&O - Last 24 hours: Intake & Output 11/21/16 11/22/16 11/22/16 22:59 06:59 14:59 Intake Total 388 410 360 Output Total 600 1150 Balance -212 -740 360 Lab Results - Last 24 hrs: Laboratory Results - last 24 hr 11/22/16 Range/Units 05:22 Sodium 141 (140-148) mmol/L Potassium 3.3 L (3.6-5.2) mmol/L Chloride 105 (100-108) mmol/L Carbon Dioxide 33 H (21-32) mmol/L Anion Gap 6.3 (5.0-14.0) mmol/L BUN 5 L (7-18) mg/dL Creatinine 0.6 L (0.8-1.3) mg/dL Est Cr Clr Drug Dosing 145.17 mL/min Estimated GFR (MDRD) > 60 (>60) Glucose 173 H (74-106) mg/dL Calcium 8.2 L (8.5-10.1) mg/dL Med Orders - Current: Current Medications Acetaminophen (Tylenol) 650 mg PO Q4H PRN PRN Reason: Pain (Mild 1-3)/fever Last Admin: 11/20/16 21:53 Dose: 650 mg Amlodipine Besylate (Norvasc) 10 mg PO BEDTIME [facility] Last Admin: 11/21/16 20:34 Dose: 10 mg Amoxicillin/Clavulanate Potassium (Augmentin 875 Mg/125 Mg) 1 tab PO BID [facility] Last Admin: 11/22/16 08:40 Dose: 1 tab Atenolol (Tenormin) 25 mg PO DAILY [facility] Last Admin: 11/22/16 08:40 Dose: 25 mg Gabapentin (Neurontin) 600 mg PO BEDTIME [facility] Last Admin: 11/21/16 20:34 Dose: 600 mg Glipizide (Glucotrol) 10 mg PO BIDMEALS [facility] Last Admin: 11/22/16 08:41 Dose: 10 mg Sodium Chloride (Normal Saline) 250 mls @ 25 mls/hr IV ASDIRECTED [facility] Last Admin: 11/21/16 07:36 Dose: 25 mls/hr Insulin Aspart (Novolog) 0 unit SUBCUT QIDACANDBED [facility] PRN Reason: Protocol Last Admin: 11/22/16 11:37 Dose: 6 units Iopamidol (Isovue-370 (76%)) 100 ml IV . DIRECTED [facility] Last Admin: 11/18/16 21:12 Dose: 100 ml Losartan Potassium (Cozaar) 50 mg PO BID [facility] Last Admin: 11/22/16 08:40 Dose: 50 mg Metformin HCl (Glucophage) 1,000 mg PO BIDMEALS [facility] Last Admin: 11/22/16 08:40 Dose: 1,000 mg Ondansetron HCl (Zofran) 4 mg IV Q4H PRN PRN Reason: Nausea/Vomiting Last Admin: 11/21/16 05:21 Dose: 4 mg Pantoprazole Sodium (Protonix) 40 mg PO BEDTIME [facility] Last Admin: 11/21/16 20:34 Dose: 40 mg Potassium Chloride (Klor-Con M20) 40 meq PO BIDMEALS [facility] Last Admin: 11/22/16 08:41 Dose: 40 meq Sodium Chloride (Saline Flush) 10 ml FLUSH ONETIME PRN PRN Reason: PER RADIOLOGY PROTOCOL Discontinued Medications Sodium Chloride (Normal Saline) 1,000 mls @ 300 mls/hr IV ASDIRECTED [facility] Last Admin: 11/18/16 18:45 Dose: 300 mls/hr Acetaminophen 650 mg/ Premix 65 mls @ 400 mls/hr IV NOW ONE Stop: 11/18/16 18:36 Last Admin: 11/18/16 18:47 Dose: Not Given Acetaminophen 1,000 mg/ Premix 100 mls @ 400 mls/hr IV NOW ONE Stop: 11/18/16 18:55 Last Admin: 11/18/16 18:46 Dose: 400 mls/hr Piperacillin Sod/Tazobactam (Sod 4.5 gm/ Sodium Chloride) 100 mls @ 200 mls/hr IV Q6H [facility] Last Admin: 11/18/16 19:28 Dose: 200 mls/hr Sodium Chloride (Normal Saline) 100 mls @ 3 mls/sec IV ONETIME ONE Stop: 11/18/16 20:35 Last Admin: 11/18/16 21:05 Dose: 3 mls/sec Piperacillin Sod/Tazobactam (Sod 3.375 gm/ Sodium Chloride) 50 mls @ 100 mls/ hr IV Q6H [facility] Last Admin: 11/19/16 07:26 Dose: Not Given Sodium Chloride (Normal Saline) 1,000 mls @ 150 mls/hr IV ASDIRECTED [facility] Last Admin: 11/19/16 07:44 Dose: 150 mls/hr Piperacillin Sod/Tazobactam (Sod 3.375 gm/ Sodium Chloride) 50 mls @ 100 mls/ hr IV Q6H [facility] Piperacillin Sod/Tazobactam (Sod 3.375 gm/ Sodium Chloride) 50 mls @ 100 mls/ hr IV Q6H [facility] Last Admin: 11/19/16 02:18 Dose: 100 mls/hr Piperacillin/Tazobactam/ (Dextrose 3.375 gm/ Premix) 50 mls @ 100 mls/hr IV Q6H [facility] Stop: 11/22/16 02:00 Last Admin: 11/22/16 02:12 Dose: 100 mls/hr Sodium Chloride (Normal Saline) 1,000 mls @ 125 mls/hr IV ASDIRECTED [facility] Last Admin: 11/20/16 07:46 Dose: 125 mls/hr Sodium Chloride (Normal Saline) 1,000 mls @ 25 mls/hr IV ASDIRECTED [facility] Insulin Aspart (Novolog) 0 unit SUBCUT BIDAC [facility] Insulin Aspart (Novolog) 0 unit SUBCUT BIDAC [facility] Last Admin: 11/19/16 09:20 Dose: 5 units Insulin Human Regular (Novolin R) 10 unit IVPUSH ONETIME ONE PRN Reason: Protocol Stop: 11/18/16 20:04 Last Admin: 11/18/16 20:36 Dose: 10 units Pantoprazole Sodium (Protonix Iv) 40 mg IVPUSH Q24H [facility] Last Admin: 11/19/16 00:43 Dose: 40 mg Pantoprazole Sodium (Protonix Iv) 40 mg IVPUSH Q24H [facility] *Q Meaningful Use (DIS) - VTE *Q VTE Criteria *Q: - Stroke *Q Stroke Criteria *Q: - AMI *Q AMI Criteria *Q:
== END 2016-11-22 12:43 | disposition home or self-care (01) | DRG 689 ==
LOC: JP.ED 17:51 → JP.ICU 22:34 → JP.MS 11-19 15:46
PROVIDERS: ADMIT Family Medicine; ATTEND Family Medicine
DX: N12 Tubulo-interstitial nephritis, not specified as acute or chronic (principal); J18.9 Pneumonia, unspecified organism; B96.1 Klebsiella pneumoniae [K. pneumoniae] as the cause of diseases classified elsewhere; Z87.891 Personal history of nicotine dependence; E87.6 Hypokalemia; R09.02 Hypoxemia; I10 Essential (primary) hypertension; E11.42 Type 2 diabetes mellitus with diabetic polyneuropathy; E11.65 Type 2 diabetes mellitus with hyperglycemia; Z79.84 Long term (current) use of oral hypoglycemic drugs; H54.7 Unspecified visual loss; E78.5 Hyperlipidemia, unspecified
CPT/HCPCS: 36415; 71010; 71010-26; 71275; 74177; 80048; 80053; 81001; 82150; 82962; 83605; 83690; 83880; 84484; 85025; 85027; 85379; 86140; 87040; 87077; 87086; 87088; 87186; 87804; 93005; 93010; 96365; 99232; 99238; 99284; 99285-25; A9270-GY; C9113; J0131; J2405; J2543; J7030; J7040; J7050; Q9967

== ENCOUNTER 2016-12-07 19:21 | Emergency (ER) | payer MEDICAID ==
[2016-12-07] MEDS ORDERED: Acetaminophen 325 MG Tab PO ONE (20:26)
[2016-12-07] MEDS ORDERED: Ondansetron 4 MG/2 ML SDV IVPUSH ONE (20:28)
--- NOTE | 2016-12-07 20:29 | EDM.PDOC ---
ED HPI GENERAL MEDICAL PROBLEM - General Chief Complaint: Genitourinary Problem Stated Complaint: BLADDER INFECTION Time Seen by Provider: 12/07/16 20:23 Source of Information: Reports: Patient History Limitations: Reports: No Limitations - History of Present Illness INITIAL COMMENTS - FREE TEXT/NARRATIVE: Pt treated for UTI about 2 weeks ago. Was hospitalized. Went home on Augmentin. Finished meds on Thursday. Thinks he started running a temp again yesterday. Drank large amounts of cranberry juice. Is diabetic. Does not routinely check his sugars. Did vomit x 1 today. No diarrhea. Onset: Today Onset Date: 12/07/16 Duration: Getting Worse Severity: Mild Improves with: Reports: None Worsens with: Reports: None Associated Symptoms: Reports: Fever/Chills, Loss of Appetite, Nausea/Vomiting - Related Data Allergies Allergy/AdvReac Type Severity Reaction Status Date / Time No Known Allergies Allergy Verified 04/01/15 12:28 Home Meds: Home Meds Atenolol [Tenormin] 25 mg PO DAILY 02/27/13 [History] glipiZIDE [Glipizide] 10 mg PO BID 07/01/14 [History] Gabapentin [Neurontin] 600 mg PO BEDTIME 10/01/14 [History] metFORMIN HCl [Metformin HCl] 1,000 mg PO BIDAC 11/19/16 [History] Amoxicillin/Clavulanate K [Augmentin 875-125 MG] 1 tab PO BID #14 tablet [Rx] Past Medical History HEENT History: Reports: Impaired Vision Cardiovascular History: Reports: Arrhythmia, Hypertension Respiratory History: Reports: Pneumonia, Recurrent Genitourinary History: Reports: Diabetic Nephropathy, Renal Calculus, UTI, Recurrent Musculoskeletal History: Reports: Gout, Other (See Below) Other Musculoskeletal History: neuropathy Neurological History: Reports: Neuropathy, Diabetic, Vertigo Psychiatric History: Reports: ADHD Endocrine/Metabolic History: Reports: Diabetes, Type II, Obesity/BMI 30+ Dermatologic History: Reports: Eczema - Infectious Disease History Infectious Disease History: Reports: Chicken Pox, Influenza - Past Surgical History HEENT Surgical History: Reports: Tonsillectomy Male Surgical History: Reports: Other (See Below) Other Male Surgeries/Procedures: abcess removed from back of scrotum Social & Family History - Tobacco Use Smoking Status *Q: Never Smoker Years of Tobacco use: 12 Used Tobacco, but Quit: Yes Month Tobacco Last Used: 6 years Second Hand Smoke Exposure: No - Caffeine Use Caffeine Use: Reports: Coffee, Soda - Alcohol Use Days Per Week of Alcohol Use: 0 - Recreational Drug Use Recreational Drug Use: No ED ROS GENERAL - Review of Systems Review Of Systems: See Below Constitutional: Reports: Fever, Malaise, Diaphoresis, Decreased Appetite HEENT: Reports: No Symptoms Respiratory: Reports: No Symptoms Cardiovascular: Reports: No Symptoms GI/Abdominal: Reports: Nausea, Vomiting : Reports: No Symptoms Musculoskeletal: Reports: Back Pain Skin: Reports: No Symptoms Neurological: Reports: No Symptoms ED EXAM, RENAL/ - Physical Exam Exam: See Below Exam Limited By: No Limitations General Appearance: Alert, WD/WN, No Apparent Distress Ears: Normal External Exam, Normal Canal, Hearing Grossly Normal, Normal TMs Nose: Normal Inspection, Normal Mucosa, No Blood Throat/Mouth: Normal Inspection, Normal Lips, Normal Teeth, Normal Gums, Normal Oropharynx, Normal Voice, No Airway Compromise Head: Atraumatic, Normocephalic Neck: Normal Inspection, Supple, Non-Tender, Full Range of Motion Respiratory/Chest: No Respiratory Distress, Lungs Clear, Normal Breath Sounds, No Accessory Muscle Use, Chest Non-Tender Cardiovascular: Normal Peripheral Pulses, Regular Rate, Rhythm, No Edema, No Gallop, No JVD, No Murmur, No Rub GI/Abdominal: Normal Bowel Sounds, Soft, Non-Tender, No Organomegaly, No Distention, No Abnormal Bruit, No Mass Course - Vital Signs Last Recorded V/S: Last Vital Signs Temp 101.5 F H 12/07/16 21:41 Pulse 99 12/07/16 21:41 Resp 18 12/07/16 21:41 BP 113/59 L 12/07/16 21:41 Pulse Ox 89 L 12/07/16 21:41 - Orders/Labs/Meds Orders: Active Orders 24 hr Category Date Time Status CULTURE URINE [RM] Stat Lab 12/07/16 20:29 Received Sodium Chloride 0.9% [Normal Saline] 1,000 ml Med 12/07/16 20:30 Active IV .BOLUS Medication Orders Sodium Chloride (Normal Saline) 1,000 mls @ 500 mls/hr IV .BOLUS BUDDY Last Admin: 12/07/16 20:43 Dose: 500 mls/hr Labs: Laboratory Tests 12/07/16 12/07/16 12/07/16 Range/Units 19:44 20:29 20:29 WBC 9.7 (4.5-11.0) K/uL RBC 3.84 L (4.30-5.90) M/uL Hgb 11.9 L (12.0-15.0) g/dL Hct 34.7 L (40.0-54.0) % MCV 90 (80-98) fL MCH 31 (27-31) pg MCHC 34 (32-36) % Plt Count 274 (150-400) K/uL Neut % (Auto) 86 H (36-66) % Lymph % (Auto) 5 L (24-44) % [place] % (Auto) 8 H (2-6) % Eos % (Auto) 0 L (2-4) % Baso % (Auto) 0 (0-1) % Sodium 138 L (140-148) mmol/L Potassium 4.4 (3.6-5.2) mmol/L Chloride 101 (100-108) mmol/L Carbon Dioxide 25 (21-32) mmol/L Anion Gap 16.4 H (5.0-14.0) mmol/L BUN 23 H D (7-18) mg/dL Creatinine 1.3 D (0.8-1.3) mg/dL Est Cr Clr Drug Dosing 67.23 mL/min Estimated GFR (MDRD) 58 L (>60) Glucose 269 H (74-106) mg/dL Lactic Acid (0.4-2.0) mmol/L Calcium 8.5 (8.5-10.1) mg/dL Total Bilirubin 0.7 (0.2-1.0) mg/dL AST 14 L (15-37) U/L ALT 21 (12-78) U/L Alkaline Phosphatase 77 (46-116) U/L Total Protein 7.8 (6.4-8.2) g/dL Albumin 2.9 L (3.4-5.0) g/dL Globulin 4.9 H (2.3-3.5) g/dL Albumin/Globulin Ratio 0.6 L (1.2-2.2) Urine Color Yellow Urine Appearance Cloudy Urine pH 5.0 (4.5-8.0) Ur Specific [place] 1.020 (1.008-1.030) Urine Protein Negative (NEGATIVE) mg/dL Urine Glucose (UA) Normal (NEGATIVE) mg/dL Urine Ketones Negative (NEGATIVE) mg/dL Urine Occult Blood Large (NEGATIVE) Urine Nitrite Positive H (NEGAITVE) Urine Bilirubin Negative (NEGATIVE) Urine Urobilinogen Normal (NORMAL) mg/dL Ur Leukocyte Esterase Large (NEGATIVE) Urine RBC 10-20 H (0-5) Urine WBC Semi-packed H (0-5) Ur Epithelial Cells Few Amorphous Sediment Not seen Urine Bacteria Many Urine Mucus Moderate 12/07/ Range/Units 20:29 WBC (4.5-11.0) K/uL RBC (4.30-5.90) M/uL Hgb (12.0-15.0) g/dL Hct (40.0-54.0) % MCV (80-98) fL MCH (27-31) pg MCHC (32-36) % Plt Count (150-400) K/uL Neut % (Auto) (36-66) % Lymph % (Auto) (24-44) % [place] % (Auto) (2-6) % Eos % (Auto) (2-4) % Baso % (Auto) (0-1) % Sodium (140-148) mmol/L Potassium (3.6-5.2) mmol/L Chloride (100-108) mmol/L Carbon Dioxide (21-32) mmol/L Anion Gap (5.0-14.0) mmol/L BUN (7-18) mg/dL Creatinine (0.8-1.3) mg/dL Est Cr Clr Drug Dosing mL/min Estimated GFR (MDRD) (>60) Glucose (74-106) mg/dL Lactic Acid 1.2 (0.4-2.0) mmol/L Calcium (8.5-10.1) mg/dL Total Bilirubin (0.2-1.0) mg/dL AST (15-37) U/L ALT (12-78) U/L Alkaline Phosphatase (46-116) U/L Total Protein (6.4-8.2) g/dL Albumin (3.4-5.0) g/dL Globulin (2.3-3.5) g/dL Albumin/Globulin Ratio (1.2-2.2) Urine Color Urine Appearance Urine pH (4.5-8.0) Ur Specific [place] (1.008-1.030) Urine Protein (NEGATIVE) mg/dL Urine Glucose (UA) (NEGATIVE) mg/dL Urine Ketones (NEGATIVE) mg/dL Urine Occult Blood (NEGATIVE) Urine Nitrite (NEGAITVE) Urine Bilirubin (NEGATIVE) Urine Urobilinogen (NORMAL) mg/dL Ur Leukocyte Esterase (NEGATIVE) Urine RBC (0-5) Urine WBC (0-5) Ur Epithelial Cells Amorphous Sediment Urine Bacteria Urine Mucus Meds: Medications Generic Name Dose Route Start Last Admin Trade Name Freq PRN Reason Stop Dose Admin Sodium Chloride 1,000 mls @ 500 mls/hr 12/07/16 20:30 12/07/16 20:43 Normal Saline IV 500 mls/hr .BOLUS BUDDY Administration Discontinued Medications Generic Name Dose Route Start Last Admin Trade Name Freq PRN Reason Stop Dose Admin Acetaminophen 650 mg 12/07/16 20:26 12/07/16 20:44 Tylenol PO 12/07/16 20:27 650 mg NOW ONE Administration Ceftriaxone Sodium 1 gm/ 50 mls @ 100 mls/hr 12/07/16 21:13 12/07/16 21:32 Sodium Chloride IV 12/07/16 21:42 100 mls/hr ONETIME ONE Administration Ondansetron HCl 4 mg 12/07/16 20:28 12/07/16 20:43 Zofran IVPUSH 12/07/16 20:29 4 mg ONETIME ONE Administration Departure - Departure Time of Disposition: 22:14 Disposition: Home, Self-Care 01 Condition: Fair Clinical Impression: UTI (urinary tract infection) - Discharge Information Referrals: Dwayne Pacheco MD [Primary Care Provider] - Forms: ED Department Discharge Additional Instructions: CBC shows mild anemia. WBC 9.7. Lactic acid 1.2. CMP stable. UA positive for UTI. IV NS 1L infused. Zofran 4mg IV given. Pt reports decreased nausea. Takes juice and jello. IV Rocephin 1gm infused. Pt would like med for nausea before leaving tonight. Order for Compazine IV given. Pt will need to followup with primary care tomorrow to discuss culture findings and appropriate antibiotic choice. Pt to hydrate well, treat fever and rest. Discussed importance of diabetic compliance and testing of blood sugars. - Problem List & Annotations (1) UTI (urinary tract infection) SNOMED Code(s): 20339901 Code(s): N39.0 - URINARY TRACT INFECTION, SITE NOT SPECIFIED Status: Acute Priority: Medium Current Visit: Yes - My Orders Last 24 Hours: My Active Orders 12/07/16 20:29 CULTURE URINE [RM] Stat 12/07/16 20:30 Sodium Chloride 0.9% [Normal Saline] 1,000 ml IV .BOLUS - Assessment/Plan Last 24 Hours: My Active Orders 12/07/16 20:29 CULTURE URINE [RM] Stat 12/07/16 20:30 Sodium Chloride 0.9% [Normal Saline] 1,000 ml IV .BOLUS
[2016-12-07] MEDS ORDERED: Sodium Chloride 0.9% 1,000 ML IV SCH (20:30)
[2016-12-07] MEDS ORDERED: cefTRIAXone 1 GM in Sodium Chloride 0.9% 50 ML IV ONE (21:13)
[2016-12-07] MEDS ORDERED: Prochlorperazine 5 MG in Sodium Chloride 0.9% 50 ML IV ONE (22:17)
[2016-12-07 23:41] VITALS: BP 121/65
== END 2016-12-07 23:55 | disposition home or self-care (01) ==
LOC: JP.ED 19:21
DX: N39.0 Urinary tract infection, site not specified (principal); I10 Essential (primary) hypertension; E11.40 Type 2 diabetes mellitus with diabetic neuropathy, unspecified; E66.9 Obesity, unspecified; Z98.890 Other specified postprocedural states; Z79.84 Long term (current) use of oral hypoglycemic drugs; Z79.899 Other long term (current) drug therapy
CPT/HCPCS: 36415; 80053; 81001; 83605; 85025; 87086; 87088; 87186; 96365; 96367; 96375; 99284; A9270; J0696; J0780; J2405; J7040; J7050; 99283

== ENCOUNTER 2018-10-31 21:24 | Emergency (ER) | payer MEDICAID ==
[2018-10-31] MEDS ORDERED: Propofol 200 MG/20 ML SDV IVPUSH ONE ×2 (21:44→22:33)
--- NOTE | 2018-10-31 21:50 | EDM.PDOC ---
ED HPI GENERAL MEDICAL PROBLEM - General Chief Complaint: Cardiovascular Problem Stated Complaint: A-FIB Time Seen by Provider: 10/31/18 21:30 Source of Information: Reports: Patient, EMS History Limitations: Reports: No Limitations - History of Present Illness INITIAL COMMENTS - FREE TEXT/NARRATIVE: 53-year-old male type II diabetic, known history of past atrial fibrillation but it is been several years since he's had an episode. Today he developed palpitations about 2-1/2 hours prior to coming in, he knows it's atrial fibrillation, he knows what it feels like and it's not going away. He is on metoprolol, took his evening dose about 1 hour prior to the symptoms starting. He has a need for 4 hours. He is a type II diabetic that is somewhat poorly controlled but that is chronic and he has no other issues, he had an general physical with labs 2 months ago and there were no other issues. He arrived by ambulance in atrial fibrillation with a rate between 80 and 110, no other symptoms such as chest pain, shortness of breath, nausea or vomiting or dizziness. He just wants it to be gone. He is under a lot of stress right now. Onset: Sudden Duration: Hour(s): (Within the last 3 hours) Associated Symptoms: Reports: No Other Symptoms - Related Data Allergies Allergy/AdvReac Type Severity Reaction Status Date / Time No Known Allergies Allergy Verified 04/01/15 12:28 Home Meds: Home Meds Atenolol [Tenormin] 25 mg PO DAILY 02/27/13 [History] glipiZIDE [Glipizide] 10 mg PO BID 07/01/14 [History] Gabapentin [Neurontin] 600 mg PO BEDTIME 10/01/14 [History] metFORMIN HCl [Metformin HCl] 1,000 mg PO BIDAC 11/19/16 [History] Amoxicillin/Clavulanate K [Augmentin 875-125 MG] 1 tab PO BID #14 tablet [Rx] Past Medical History HEENT History: Reports: Impaired Vision Cardiovascular History: Reports: Arrhythmia, Hypertension Respiratory History: Reports: Pneumonia, Recurrent Genitourinary History: Reports: Diabetic Nephropathy, Renal Calculus, UTI, Recurrent Musculoskeletal History: Reports: Gout, Other (See Below) Other Musculoskeletal History: neuropathy Neurological History: Reports: Neuropathy, Diabetic, Vertigo Psychiatric History: Reports: ADHD Endocrine/Metabolic History: Reports: Diabetes, Type II, Obesity/BMI 30+ Dermatologic History: Reports: Eczema - Infectious Disease History Infectious Disease History: Reports: Chicken Pox, Influenza - Past Surgical History HEENT Surgical History: Reports: Tonsillectomy Male Surgical History: Reports: Other (See Below) Other Male Surgeries/Procedures: abcess removed from back of scrotum Social & Family History - Caffeine Use Caffeine Use: Reports: Coffee, Soda ED ROS GENERAL - Review of Systems Review Of Systems: See Below Constitutional: Denies: Fever, Chills Respiratory: Denies: Shortness of Breath Cardiovascular: Denies: Chest Pain Endocrine: Denies: Fatigue GI/Abdominal: Denies: Abdominal Pain, Nausea, Vomiting Skin: Reports: No Symptoms Neurological: Denies: Headache ED EXAM, GENERAL - Physical Exam Exam: See Below Exam Limited By: No Limitations General Appearance: Alert, No Apparent Distress Respiratory/Chest: No Respiratory Distress, Lungs Clear Cardiovascular: Irregularly Irregular GI/Abdominal: Other (Obese, nontender) Extremities: Other (Patient is wearing a walking on the left extremity) Neurological: Alert, Oriented, Abnormal Reflexes Psychiatric: Normal Mood EKG INTERPRETATION Rhythm: A-Fib Course - Vital Signs Last Recorded V/S: Last Vital Signs Temp 96.5 F 10/31/18 23:30 Pulse 91 10/31/18 23:30 Resp 15 10/31/18 23:30 BP 140/87 10/31/18 23:30 Pulse Ox 94 L 10/31/18 23:30 - Orders/Labs/Meds Orders: Active Orders 24 hr Category Date Time Status EKG Documentation Completion [RC] ASDIRECTED Care 10/31/18 21:51 Active EKG Documentation Completion [RC] ASDIRECTED Care 10/31/18 23:13 Active EKG 12 Lead [EK] Routine Ther 10/31/18 21:51 Ordered EKG 12 Lead [EK] Routine Ther 10/31/18 23:13 Ordered Meds: Medications Discontinued Medications Generic Name Dose Route Start Last Admin Trade Name Freq PRN Reason Stop Dose Admin Acetaminophen 1,000 mg 11/01/18 01:32 11/01/18 01:53 Tylenol Extra Strength PO 11/01/18 01:33 1,000 mg ONETIME ONE Administration Gabapentin 600 mg 11/01/18 01:32 11/01/18 01:53 Neurontin PO 11/01/18 01:33 600 mg ONETIME ONE Administration Propofol 200 mg 10/31/18 21:44 10/31/18 23:33 Diprivan 20 Ml IVPUSH 10/31/18 21:45 200 mg ONETIME ONE Administration Propofol 200 mg 10/31/18 22:33 10/31/18 23:39 Diprivan 20 Ml IVPUSH 10/31/18 22:34 200 mg ONETIME ONE Administration - Re-Assessments/Exams Free Text/Narrative Re-Assessment/Exam: 10/31/18 22:34 After risks and benefits of electrical cardioversion were discussed with the patient, he agreed to a cardioversion attempt. An IV was started in the left antecubital fossa. Patient was given 200 mg of propofol IV, and it did not seem to have an effect on him as it should and he was experiencing some pain in his arm. There was no evidence of infiltration and the fluid and medicine flushed well but it did not feel to have the affect it should so we started another IV in the opposite arm. There most of been some type of subcutaneous infiltration of the previous propofol. 10/31/18 22:47 Using a second IV, the patient was given 140 mg of IV propofol with the expected effects. We achieved significant sedation for a cardioversion with 200 J, patient converted to sinus rhythm after 1 shock. Time at bedside 25 minutes. 11/01/18 06:33 Patient rested quietly in the emergency room overnight for 8 hours, arm was reexamined on an hourly basis and showed no evidence of inflammation and he developed no pain. He remained in sinus rhythm and asymptomatic. Departure - Departure Time of Disposition: 06:50 Disposition: Home, Self-Care 01 Clinical Impression: Atrial fibrillation Qualifiers: Atrial fibrillation type: paroxysmal Qualified Code(s): I48.0 - Paroxysmal atrial fibrillation Instructions: Atrial Fibrillation, [id number] Referrals: PCP,None [Primary Care Provider] - Forms: ED Department Discharge Care Plan Goals: Continue any current medications and activity as tolerated. Return anytime if symptoms recur or you develop other concerns. - My Orders Last 24 Hours: My Active Orders 10/31/18 21:51 EKG Documentation Completion [RC] ASDIRECTED EKG 12 Lead [EK] Routine 10/31/18 23:13 EKG Documentation Completion [RC] ASDIRECTED EKG 12 Lead [EK] Routine - Assessment/Plan Last 24 Hours: My Active Orders 10/31/18 21:51 EKG Documentation Completion [RC] ASDIRECTED EKG 12 Lead [EK] Routine 10/31/18 23:13 EKG Documentation Completion [RC] ASDIRECTED EKG 12 Lead [EK] Routine
[2018-10-31 23:31] VITALS: BP 140/87; PULSE 91
[2018-11-01] MEDS ORDERED: Gabapentin 300 MG Cap PO ONE (01:32)
[2018-11-01] MEDS ORDERED: Acetaminophen 500 MG Tab PO ONE (01:32)
== END 2018-11-01 06:53 | disposition home or self-care (01) ==
LOC: JP.ED 21:24
DX: I48.0 Paroxysmal atrial fibrillation (principal); E11.21 Type 2 diabetes mellitus with diabetic nephropathy; E11.40 Type 2 diabetes mellitus with diabetic neuropathy, unspecified; Z79.84 Long term (current) use of oral hypoglycemic drugs; Z79.899 Other long term (current) drug therapy
CPT/HCPCS: 92960; 93005; 99285; A9270; J2704

== ENCOUNTER 2019-09-07 09:57 | Inpatient (IN) | payer MEDICAID, OTHER ==
[2019-09-07] MEDS ORDERED: Albuterol/Ipratropium 3.0-0.5 MG/3 ML Neb Soln NEB ONE (10:01)
--- NOTE | 2019-09-07 10:03 | EDM.PDOC ---
ED HPI GENERAL MEDICAL PROBLEM - General Chief Complaint: Respiratory Problem Stated Complaint: SHORTNESS OF BREATH Time Seen by Provider: 09/07/19 09:57 Source of Information: Reports: Patient, EMS History Limitations: Reports: No Limitations - History of Present Illness INITIAL COMMENTS - FREE TEXT/NARRATIVE: 54-year-old male with a history of atrial fibrillation, diabetes, who was feeling fine this morning and suddenly developed a dry persistent cough which progressed into a moist cough and shortness of breath and tightness. Within 1/2 -hour he "could not breathe" so called EMS. When they arrived he was struggling with O2 sats in the high 70s to low 80s and pale. He responded well in route to oxygen therapy. He needed 10 L with a nonrebreather mask to increase his O2 sats into the mid 90s. He has not had episodes like this in the past. No fevers or chills, no recent illness. Onset: Sudden (Symptoms came on fairly suddenly within the last 2 hours) Improves with: Reports: Other (Marked improvement with oxygen therapy) Associated Symptoms: Reports: Cough (Productive of wet frothy sputum). Denies: Chest Pain - Related Data Allergies Allergy/AdvReac Type Severity Reaction Status Date / Time No Known Allergies Allergy Verified 09/07/19 10:15 Home Meds: Home Meds Atenolol [Tenormin] 25 mg PO DAILY 02/27/13 [History] glipiZIDE [Glipizide] 10 mg PO BID 07/01/14 [History] Gabapentin [Neurontin] 600 mg PO BEDTIME 10/01/14 [History] metFORMIN HCl [Metformin HCl] 1,000 mg PO BIDAC 11/19/16 [History] Liraglutide [Victoza 3-Segun] 1.8 mg .XX DAILY 09/07/19 [History] Past Medical History HEENT History: Reports: Impaired Vision Cardiovascular History: Reports: Arrhythmia, Hypertension Respiratory History: Reports: Pneumonia, Recurrent Genitourinary History: Reports: Diabetic Nephropathy, Renal Calculus, UTI, Recurrent Musculoskeletal History: Reports: Gout, Other (See Below) Other Musculoskeletal History: neuropathy Neurological History: Reports: Neuropathy, Diabetic, Vertigo Psychiatric History: Reports: ADHD Endocrine/Metabolic History: Reports: Diabetes, Type II, Obesity/BMI 30+ Dermatologic History: Reports: Eczema - Infectious Disease History Infectious Disease History: Reports: Chicken Pox, Influenza - Past Surgical History HEENT Surgical History: Reports: Tonsillectomy Male Surgical History: Reports: Other (See Below) Other Male Surgeries/Procedures: abcess removed from back of scrotum Social & Family History - Caffeine Use Caffeine Use: Reports: Coffee, Soda ED ROS GENERAL - Review of Systems Review Of Systems: See Below Constitutional: Denies: Fever, Chills HEENT: Denies: Throat Pain Respiratory: Reports: Shortness of Breath, Wheezing, Cough, Sputum Cardiovascular: Denies: Chest Pain, Palpitations GI/Abdominal: Denies: Abdominal Pain, Nausea, Vomiting : Reports: No Symptoms Skin: Reports: No Symptoms Neurological: Denies: Headache, Weakness Free Text/Narrative/Comment: Admits that his glucose levels have been higher lately since he has not been as active ED EXAM, GENERAL - Physical Exam Exam: See Below Exam Limited By: No Limitations General Appearance: Alert, Mild Distress Eye Exam: Bilateral Eye: EOMI, Normal Inspection (No jaundice, good hydration) Head: Atraumatic Respiratory/Chest: Respiratory Distress (Moderate respiratory distress), Rhonchi (Diffuse rhonchi), Wheezing (Diffuse expiratory wheezes) Cardiovascular: Regular Rate, Rhythm, Tachycardia GI/Abdominal: Soft, Non-Tender, Other (Morbidly obese) Extremities: Pedal Edema (Trace of symmetric lower extremity edema is present at the ankles) Neurological: Alert, Oriented Psychiatric: Normal Affect, Normal Mood Skin Exam: Warm, Dry Course - Vital Signs Last Recorded V/S: Last Vital Signs Temp 97.8 F 09/07/19 10:03 Pulse 105 H 09/07/19 11:17 Resp 15 09/07/19 11:17 BP 141/75 H 09/07/19 11:17 Pulse Ox 93 L 09/07/19 11:17 - Orders/Labs/Meds Orders: Active Orders 24 hr Category Date Time Status RT Aerosol Therapy [RC] ASDIRECTED Care 09/07/19 10:01 Active [id number] SARS-COV-2 RNA Routine Lab 09/07/19 11:00 Received Medication Orders Acetaminophen (Tylenol) 650 mg PO Q4H PRN PRN Reason: Pain (Mild 1-3)/fever Albuterol (Proventil Neb Soln) 2.5 mg NEB Q4H PRN PRN Reason: Shortness Of Breath/wheezing Atenolol (Tenormin) 25 mg PO DAILY [facility] Gabapentin (Neurontin) 600 mg PO BEDTIME BUDDY Glipizide (Glucotrol) 10 mg PO BIDAC BUDDY Liraglutide (Victoza) 1.8 mg SUBCUT DAILY BUDDY Lorazepam (Ativan) 0.5 mg IVPUSH Q4H PRN PRN Reason: Nausea/Vomiting Magnesium Hydroxide (Milk Of Magnesia) 30 ml PO Q12H PRN PRN Reason: Constipation Metformin HCl (Glucophage) 1,000 mg PO BIDMEALS BUDDY Ondansetron HCl (Zofran Odt) 4 mg PO Q6H PRN PRN Reason: Nausea able to take PO Ondansetron HCl (Zofran) 4 mg IV Q6H PRN PRN Reason: Nausea/Vomiting Senna/Docusate Sodium (Senna Plus) 1 tab PO BID PRN PRN Reason: Constipation Labs: Laboratory Tests 09/07/19 09/07/19 09/07/19 Range/Units 10:00 10:04 10:04 WBC 7.6 (4.5-11.0) K/uL RBC 4.27 L (4.30-5.90) M/uL Hgb 13.2 (12.0-15.0) g/dL Hct 39.5 L (40.0-54.0) % MCV 93 (80-98) fL MCH 31 (27-31) pg MCHC 33 (32-36) % Plt Count 256 (150-400) K/uL Neut % (Auto) 71 H (36-66) % Lymph % (Auto) 19 L (24-44) % [place] % (Auto) 6 (2-6) % Eos % (Auto) 5 H (2-4) % Baso % (Auto) 1 (0-1) % D-Dimer, Quantitative (0.0-400.0) ng/mL Puncture Site Rt radial ABG pH 7.382 (7.350-7.450) ABG pCO2 37.9 (35.0-42.0) mmHg ABG pO2 82.1 (75.0-100.0) mmHg ABG HCO3 22.0 (22.0-26.0) mmol/L ABG Total CO2 19.6 L (23.0-27.0) mmol/L ABG O2 Saturation 95.9 (95.0-98.0) % ABG O2 Content 17.9 (15.0-23.0) %vol ABG Base Excess -2.2 mm/L ABG Hemoglobin 13.7 (13.5-18.0) g/dL ABG Oxyhemoglobin 92.6 % ABG Carboxyhemoglobin 2.3 H (0.0-1.6) % ABG Methemoglobin 1.1 % Guido Test Passed O2 Delivery Device Non rebr mask Oxygen Flow Rate 10.0 L Sodium 138 L (140-148) mmol/L Potassium 3.6 (3.6-5.2) mmol/L Chloride 106 (100-108) mmol/L Carbon Dioxide 24 (21-32) mmol/L Anion Gap 11.6 (5.0-14.0) mmol/L BUN 16 (7-18) mg/dL Creatinine 0.8 (0.8-1.3) mg/dL Est Cr Clr Drug Dosing 105.56 mL/min Estimated GFR (MDRD) > 60 (>60) Glucose 322 H (74-106) mg/dL Calcium 8.1 L (8.5-10.1) mg/dL Total Bilirubin 0.8 (0.2-1.0) mg/dL AST 19 (15-37) U/L ALT 29 (12-78) U/L Alkaline Phosphatase 59 (46-116) U/L Lactate Dehydrogenase (85-227) U/L Troponin I < 0.017 (0.000-0.056) ng/mL C-Reactive Protein (0.0-0.3) mg/dL Total Protein 6.7 (6.4-8.2) g/dL Albumin 3.0 L (3.4-5.0) g/dL Globulin 3.7 H (2.3-3.5) g/dL Albumin/Globulin Ratio 0.8 L (1.2-2.2) Procalcitonin ng/mL 09/07/19 09/07/19 09/07/19 Range/Units 10:52 10:52 10:52 WBC (4.5-11.0) K/uL RBC (4.30-5.90) M/uL Hgb (12.0-15.0) g/dL Hct (40.0-54.0) % MCV (80-98) fL MCH (27-31) pg MCHC (32-36) % Plt Count (150-400) K/uL Neut % (Auto) (36-66) % Lymph % (Auto) (24-44) % [place] % (Auto) (2-6) % Eos % (Auto) (2-4) % Baso % (Auto) (0-1) % D-Dimer, Quantitative 748 H (0.0-400.0) ng/mL Puncture Site ABG pH (7.350-7.450) ABG pCO2 (35.0-42.0) mmHg ABG pO2 (75.0-100.0) mmHg ABG HCO3 (22.0-26.0) mmol/L ABG Total CO2 (23.0-27.0) mmol/L ABG O2 Saturation (95.0-98.0) % ABG O2 Content (15.0-23.0) %vol ABG Base Excess mm/L ABG Hemoglobin (13.5-18.0) g/dL ABG Oxyhemoglobin % ABG Carboxyhemoglobin (0.0-1.6) % ABG Methemoglobin % Guido Test O2 Delivery Device Oxygen Flow Rate L Sodium (140-148) mmol/L Potassium (3.6-5.2) mmol/L Chloride (100-108) mmol/L Carbon Dioxide (21-32) mmol/L Anion Gap (5.0-14.0) mmol/L BUN (7-18) mg/dL Creatinine (0.8-1.3) mg/dL Est Cr Clr Drug Dosing mL/min Estimated GFR (MDRD) (>60) Glucose (74-106) mg/dL Calcium (8.5-10.1) mg/dL Total Bilirubin (0.2-1.0) mg/dL AST (15-37) U/L ALT (12-78) U/L Alkaline Phosphatase (46-116) U/L Lactate Dehydrogenase 239 H (85-227) U/L Troponin I (0.000-0.056) ng/mL C-Reactive Protein 0.21 (0.0-0.3) mg/dL Total Protein (6.4-8.2) g/dL Albumin (3.4-5.0) g/dL Globulin (2.3-3.5) g/dL Albumin/Globulin Ratio (1.2-2.2) Procalcitonin < 0.05 ng/mL 09/07/19 Range/Units 12:48 WBC (4.5-11.0) K/uL RBC (4.30-5.90) M/uL Hgb (12.0-15.0) g/dL Hct (40.0-54.0) % MCV (80-98) fL MCH (27-31) pg MCHC (32-36) % Plt Count (150-400) K/uL Neut % (Auto) (36-66) % Lymph % (Auto) (24-44) % [place] % (Auto) (2-6) % Eos % (Auto) (2-4) % Baso % (Auto) (0-1) % D-Dimer, Quantitative (0.0-400.0) ng/mL Puncture Site ABG pH (7.350-7.450) ABG pCO2 (35.0-42.0) mmHg ABG pO2 (75.0-100.0) mmHg ABG HCO3 (22.0-26.0) mmol/L ABG Total CO2 (23.0-27.0) mmol/L ABG O2 Saturation (95.0-98.0) % ABG O2 Content (15.0-23.0) %vol ABG Base Excess mm/L ABG Hemoglobin (13.5-18.0) g/dL ABG Oxyhemoglobin % ABG Carboxyhemoglobin (0.0-1.6) % ABG Methemoglobin % Guido Test O2 Delivery Device Oxygen Flow Rate L Sodium (140-148) mmol/L Potassium (3.6-5.2) mmol/L Chloride (100-108) mmol/L Carbon Dioxide (21-32) mmol/L Anion Gap (5.0-14.0) mmol/L BUN (7-18) mg/dL Creatinine (0.8-1.3) mg/dL Est Cr Clr Drug Dosing mL/min Estimated GFR (MDRD) (>60) Glucose (74-106) mg/dL Calcium (8.5-10.1) mg/dL Total Bilirubin (0.2-1.0) mg/dL AST (15-37) U/L ALT (12-78) U/L Alkaline Phosphatase (46-116) U/L Lactate Dehydrogenase (85-227) U/L Troponin I 0.085 H* (0.000-0.056) ng/mL C-Reactive Protein (0.0-0.3) mg/dL Total Protein (6.4-8.2) g/dL Albumin (3.4-5.0) g/dL Globulin (2.3-3.5) g/dL Albumin/Globulin Ratio (1.2-2.2) Procalcitonin ng/mL Meds: Medications Generic Name Dose Route Start Last Admin Trade Name Freq PRN Reason Stop Dose Admin Acetaminophen 650 mg 09/07/19 14:25 Tylenol PO Q4H PRN Pain (Mild 1-3)/fever Albuterol 2.5 mg 09/07/19 14:25 Proventil Neb Soln NEB Q4H PRN Shortness Of Breath/wheezing Atenolol 25 mg 09/08/19 09:00 Tenormin PO DAILY [facility] Gabapentin 600 mg 09/07/19 21:00 Neurontin PO BEDTIME BUDDY Glipizide 10 mg 09/07/19 16:30 Glucotrol PO BIDAC BUDDY Liraglutide 1.8 mg 09/08/19 09:00 Victoza SUBCUT DAILY [facility] Lorazepam 0.5 mg 09/07/19 14:25 Ativan IVPUSH Q4H PRN Nausea/Vomiting Magnesium Hydroxide 30 ml 09/07/19 14:25 Milk Of Magnesia PO Q12H PRN Constipation Metformin HCl 1,000 mg 09/07/19 17:00 Glucophage PO BIDMEALS [facility] Ondansetron HCl 4 mg 09/07/19 14:25 Zofran Odt PO Q6H PRN Nausea able to take PO Ondansetron HCl 4 mg 09/07/19 14:25 Zofran IV Q6H PRN Nausea/Vomiting Senna/Docusate Sodium 1 tab 09/07/19 14:25 Senna Plus PO BID PRN Constipation Discontinued Medications Generic Name Dose Route Start Last Admin Trade Name Freq PRN Reason Stop Dose Admin Albuterol/Ipratropium 3 ml 09/07/19 10:01 09/07/19 10:12 Duoneb 3.0-0.5 Mg/3 Ml NEB 09/07/19 10:02 3 ml ONETIME ONE Administration Furosemide 40 mg 09/07/19 10:13 09/07/19 10:20 Lasix IVPUSH 09/07/19 10:14 40 mg ONETIME ONE Administration Sodium Chloride 100 mls @ 4 mls/sec 09/07/19 12:15 09/07/19 12:26 Normal Saline IV 4 mls/sec ASDIRECTED BUDDY Administration Iopamidol 100 ml 09/07/19 12:09 09/07/19 12:26 [id number] (76%) IV 09/07/19 12:10 100 ml . DIRECTED ONE Administration Potassium Chloride 40 meq 09/07/19 14:25 Klor-Con M20 PO 09/07/19 14:26 ONETIME ONE - Re-Assessments/Exams Free Text/Narrative Re-Assessment/Exam: 09/07/19 10:12 color television console monitor showed normal sinus rhythm, EKG done by EMS showed no acute changes. ABGs, CBC, CMP and troponin were drawn urgently and a 1 view chest x- ray obtained. 09/07/19 10:15 Bedside ultrasound showed significant B-lines indicating pulmonary edema, x-ray confirmed diffuse increased vascularization which also looks like pulmonary edema. There are no pleural effusions or discrete infiltrates. Patient was given a DuoNeb and 40 mg of IV Lasix. ABGs returned relatively normal. 09/07/19 10:22 Patient felt subjectively better after the DuoNeb but objectively still needed supplemental oxygen to keep saturations above 90%. If patient concentrated on breathing in through his nose and out the mouth, his sats remained in the mid to upper 90s. White count and hemoglobin are normal, chemistry panel and troponin still pending. 09/07/19 10:32 Chemistry panel was reassuring other than an elevated glucose, troponin was 0 and the rest of electrolytes were normal. Consulted radiology did warn that he had a widespread pulmonary process either infectious or edema, history certainly points to edema. Hospitalist service was consulted for admission for diuresis and more evaluation. 09/07/19 10:38 IMPRESSION: Moderate to severe diffuse multifocal airspace disease. Differential considerations include edema versus significant diffuse multifocal pneumonia. I discussed the above findings at 10:25 a.m. on September 07, [address] Beauchamp 09/07/19 10:[address] Melton of the hospitalist service and he accepted admission. Additional labs of d-dimer, procalcitonin, LDH and COVID-19 testing were added. Patient was reevaluated and looked better, much less respiratory effort and O2 sats at 97% on 4 L nasal cannula. He was very tired. 09/07/19 12:49 Patient continues to improve, have less symptoms and need less oxygen support. CRP and procalcitonin are normal, d-dimer was elevated at [address] of the chest with IV contrast to rule out PE was obtained. Results are pending. Patient was allowed to eat a low-sodium meal, a repeat troponin was ordered as well as [id number] glucose. Patient has diuresed several times since his Lasix. 09/07/19 13:27 IMPRESSION: 1. Moderately extensive multifocal bilateral ground-glass opacities. Differential includes infection such as COVID 19 pneumonia, inflammatory process , less likely edema or hemorrhage. 2. Nondiagnostic evaluation of the pulmonary arteries for pulmonary embolism due to poor contrast opacification. Mildly dilated main pulmonary artery which can be seen with pulmonary hypertension. Dictated by Zacarias Perla MD @ 09/07/2019 1:24:32 PM 09/07/19 13:29 Patient is to be admitted by the hospitalist service for further treatment and diagnostic work-up of acute pulmonary edema versus inflammatory process. COVID- 19 is pending Departure - Departure Time of Disposition: 14:21 Disposition: Admitted As Inpatient 66 Clinical Impression: Acute respiratory distress Pulmonary edema Qualifiers: Chronicity: acute Qualified Code(s): J81.0 - Acute pulmonary edema - Discharge Information Sepsis Event Note - Focused Exam Vital Signs: Vital Signs Temp Pulse Resp BP Pulse Ox 09/07/19 11:17 105 H 15 141/75 H 93 L 09/07/19 10:47 98 11 L 121/68 94 L 09/07/19 10:27 102 H 19 140/67 95 09/07/19 10:17 107 H 15 138/74 88 L 09/07/19 10:03 97.8 F 108 H 21 H 157/87 H 95 09/07/19 09:57 97.8 F 108 H 21 H 157/87 H 95 Date Exam was Performed: 09/07/19 Time Exam was Performed: 15:22 - My Orders Last 24 Hours: My Active Orders 09/07/19 10:01 RT Aerosol Therapy [RC] ASDIRECTED 09/07/19 11:00 [id number] SARS-COV-2 RNA Routine - Assessment/Plan Last 24 Hours: My Active Orders 09/07/19 10:01 RT Aerosol Therapy [RC] ASDIRECTED 09/07/19 11:00 [id number] SARS-COV-2 RNA Routine
[2019-09-07] MEDS ORDERED: Furosemide 40 MG/4 ML VIAL IVPUSH ONE (10:13)
--- NOTE | 2019-09-07 10:34 | CRLCR ---
INDICATION: Dyspnea COMPARISON: November 18, 2016 TECHNIQUE: Single-view portable chest radiograph FINDINGS: TUBES AND LINES: None. HEART AND MEDIASTINUM: The heart size is normal. The mediastinal contour appears normal for patient age. LUNGS AND PLEURAL SPACES: Moderate to severe diffuse multifocal airspace disease. Differential considerations include edema versus significant diffuse multifocal pneumonia.This includes viral pneumonia if clinically appropriate. OSSEOUS STRUCTURES: Age-appropriate appearance. No acute focal finding. IMPRESSION: Moderate to severe diffuse multifocal airspace disease. Differential considerations include edema versus significant diffuse multifocal pneumonia. I discussed the above findings at 10:25 a.m. on September 07, [address] Beauchamp Dictated by Matthias Linton MD @ Sep 07 2019 10:29AM Signed by Dr. Matthias Linton @ Sep 07 2019 10:32AM
[2019-09-07] MEDS ORDERED: Iopamidol 755 Mg/ML 100 ML Bottle IV ONE (12:09)
[2019-09-07] MEDS ORDERED: Sodium Chloride 0.9% 100 ML IV SCH (12:15)
--- NOTE | 2019-09-07 13:26 | CRLCT ---
HISTORY: Possible pulmonary embolism. TECHNIQUE: CT chest with IV contrast, pulmonary embolism protocol. COMPARISON: None. FINDINGS: Pulmonary arteries: Nondiagnostic opacification of the pulmonary arteries. Main pulmonary artery is mildly dilated to 3.1 cm. Lungs: Central airways are patent. Moderately extensive patchy ground-glass opacities in both lungs greatest in the right upper lobe and both lower lobes. No pleural effusion or pneumothorax. Mediastinum: Thoracic aorta is normal caliber. Coronary artery calcifications. No pericardial effusion. Lymph nodes: No lymphadenopathy. Musculoskeletal: Degenerative changes of the spine. Upper abdomen: Unremarkable. IMPRESSION: 1. Moderately extensive multifocal bilateral ground-glass opacities. Differential includes infection such as COVID 19 pneumonia, inflammatory process, less likely edema or hemorrhage. 2. Nondiagnostic evaluation of the pulmonary arteries for pulmonary embolism due to poor contrast opacification. Mildly dilated main pulmonary artery which can be seen with pulmonary hypertension. Dictated by Zacarias Perla MD @ 09/07/2019 1:24:32 PM Please note that all CT scans at this facility use dose modulation, iterative reconstruction, and/or weight-based dosing when appropriate to reduce radiation dose to as low as reasonably achievable. Dictated by: Zacarias Perla MD @ 09/07/2019 13:24:39 (Electronically Signed)
--- NOTE | 2019-09-07 13:27 | PCM.HP.2 ---
H&P History of Present Illness - General Date of Service: 09/07/19 Admit Problem/Dx: Admission Diagnosis/Problem Admission Diagnosis/Problem Pulmonary edema Source of Information: Patient, Provider History Limitations: Reports: No Limitations - History of Present Illness Initial Comments - Free Text/Narative: CC: I couldn't breath HPI: Yuri presents to the emergency room with fairly acute onset of shortness of breath that started this morning. He said that he felt well yesterday and actually felt fairly well when he woke up this morning. Shortly after arising he developed a prolonged coughing spell. After this he was very short of breath. He tried to walk out to the car but became very short of breath and lightheaded and thought he was going to pass out. He was able to get a hold of his son who called an ambulance. When they arrived they found his oxygen saturations to be in the 70s. This did improve with supplemental oxygen but he did require a nonrebreather for a while. He does not report any chest pain or tightness in his chest. He has not had any sputum production. He is not aware of any fevers or chills or sweats. No complaints of abdominal pain or nausea. No diarrhea. No loss of taste or smell. No obvious sick contacts but he has been out and about in the community for grocery shopping but in general has been fairly reclusive. Work-up in the emergency room revealed fairly reassuring laboratory studies including ABGs. Chest x-ray showed a patchy diffuse infiltrate. Patient did improve with nebulizer and supplemental oxygen was able to be decreased some. With the chest x-ray showing bilateral patchy infiltrates and an elevated d- dimer we did perform a CT scan to look for both pulmonary embolism and potentially changes consistent with COVID19 infection. CRP was normal. LDH was mildly elevated. Procalcitonin was normal. CT scan of the chest did not show obvious pulmonary emboli but timing of the contrast was suboptimal and scan was nondiagnostic. The CT scan did show patchy ground glass opacities that were concerning for COVID19 infection and less likely pulmonary edema. - Related Data Allergies/Adverse Reactions: Allergies Allergy/AdvReac Type Severity Reaction Status Date / Time No Known Allergies Allergy Verified 09/07/19 10:15 Home Medications: Home Meds Atenolol [Tenormin] 25 mg PO DAILY 02/27/13 [History] glipiZIDE [Glipizide] 10 mg PO BID 07/01/14 [History] Gabapentin [Neurontin] 600 mg PO BEDTIME 10/01/14 [History] metFORMIN HCl [Metformin HCl] 1,000 mg PO BIDAC 11/19/16 [History] Liraglutide [Victoza 3-Segun] 1.8 mg .XX DAILY 09/07/19 [History] Past Medical History HEENT History: Reports: Impaired Vision Cardiovascular History: Reports: Arrhythmia, Hypertension Respiratory History: Reports: Pneumonia, Recurrent Genitourinary History: Reports: Diabetic Nephropathy, Renal Calculus, UTI, Recurrent Musculoskeletal History: Reports: Gout, Other (See Below) Other Musculoskeletal History: neuropathy Neurological History: Reports: Neuropathy, Diabetic, Vertigo Psychiatric History: Reports: ADHD Endocrine/Metabolic History: Reports: Diabetes, Type II, Obesity/BMI 30+ Dermatologic History: Reports: Eczema - Infectious Disease History Infectious Disease History: Reports: Chicken Pox, Influenza - Past Surgical History HEENT Surgical History: Reports: Tonsillectomy Male Surgical History: Reports: Other (See Below) Other Male Surgeries/Procedures: abcess removed from back of scrotum Social & Family History - Family History Cardiac: Denies: CAD - Tobacco Use Smoking Status *Q: Former Smoker Used Tobacco, but Quit: Yes Month/Year Tobacco Last Used: 1987 Second Hand Smoke Exposure: No - Caffeine Use Caffeine Use: Reports: Coffee, Soda - Recreational Drug Use Recreational Drug Use: No H&P Review of Systems - Review of Systems: Review Of Systems: See Below Free Text/Narrative: A complete 12 point review of systems was obtained. Pertinent positives and negatives are noted in the history of present illness. All other systems were reviewed and were negative except as noted. Exam - Exam Exam: See Below - Vital Signs Vital Signs: Last Vital Signs Temp 36.6 C 09/07/19 10:03 Pulse 105 H 09/07/19 11:17 Resp 15 09/07/19 11:17 BP 141/75 H 09/07/19 11:17 Pulse Ox 93 L 09/07/19 11:17 Weight: 151.953 kg - Exam Quality Assessment: Supplemental Oxygen General: Alert, Oriented, Cooperative. No: Mild Distress HEENT: Conjunctiva Clear, Mucosa Moist & [place]. No: Scleral Icterus Neck: Supple, Trachea Midline. No: JVD Lungs: Normal Respiratory Effort, Crackles (Mild diffuse, especially anteriorly) Cardiovascular: Regular Rhythm, Tachycardia. No: Systolic Murmur GI/Abdominal Exam: Normal Bowel Sounds, Soft, Non-Tender, No Distention Extremities: No Pedal Edema. No: Increased Warmth Peripheral Pulses: 2+: Dorsalis Pedis (L), Dorsalis Pedis (R) Skin: Warm, Dry - Patient Data Lab Results Last 24 hrs: Laboratory Results - last 24 hr 09/07/19 09/07/19 09/07/19 Range/Units 10:00 10:04 10:04 WBC 7.6 (4.5-11.0) K/uL RBC 4.27 L (4.30-5.90) M/uL Hgb 13.2 (12.0-15.0) g/dL Hct 39.5 L (40.0-54.0) % MCV 93 (80-98) fL MCH 31 (27-31) pg MCHC 33 (32-36) % Plt Count 256 (150-400) K/uL Neut % (Auto) 71 H (36-66) % Lymph % (Auto) 19 L (24-44) % [place] % (Auto) 6 (2-6) % Eos % (Auto) 5 H (2-4) % Baso % (Auto) 1 (0-1) % D-Dimer, Quantitative (0.0-400.0) ng/mL Puncture Site Rt radial ABG pH 7.382 (7.350-7.450) ABG pCO2 37.9 (35.0-42.0) mmHg ABG pO2 82.1 (75.0-100.0) mmHg ABG HCO3 22.0 (22.0-26.0) mmol/L ABG Total CO2 19.6 L (23.0-27.0) mmol/L ABG O2 Saturation 95.9 (95.0-98.0) % ABG O2 Content 17.9 (15.0-23.0) %vol ABG Base Excess -2.2 mm/L ABG Hemoglobin 13.7 (13.5-18.0) g/dL ABG Oxyhemoglobin 92.6 % ABG Carboxyhemoglobin 2.3 H (0.0-1.6) % ABG Methemoglobin 1.1 % Guido Test Passed O2 Delivery Device Non rebr mask Oxygen Flow Rate 10.0 L Sodium 138 L (140-148) mmol/L Potassium 3.6 (3.6-5.2) mmol/L Chloride 106 (100-108) mmol/L Carbon Dioxide 24 (21-32) mmol/L Anion Gap 11.6 (5.0-14.0) mmol/L BUN 16 (7-18) mg/dL Creatinine 0.8 (0.8-1.3) mg/dL Est Cr Clr Drug Dosing 105.56 mL/min Estimated GFR (MDRD) > 60 (>60) Glucose 322 H (74-106) mg/dL Calcium 8.1 L (8.5-10.1) mg/dL Total Bilirubin 0.8 (0.2-1.0) mg/dL AST 19 (15-37) U/L ALT 29 (12-78) U/L Alkaline Phosphatase 59 (46-116) U/L Lactate Dehydrogenase (85-227) U/L Troponin I < 0.017 (0.000-0.056) ng/mL C-Reactive Protein (0.0-0.3) mg/dL Total Protein 6.7 (6.4-8.2) g/dL Albumin 3.0 L (3.4-5.0) g/dL Globulin 3.7 H (2.3-3.5) g/dL Albumin/Globulin Ratio 0.8 L (1.2-2.2) Procalcitonin ng/mL 09/07/19 09/07/19 09/07/19 Range/Units 10:52 10:52 10:52 WBC (4.5-11.0) K/uL RBC (4.30-5.90) M/uL Hgb (12.0-15.0) g/dL Hct (40.0-54.0) % MCV (80-98) fL MCH (27-31) pg MCHC (32-36) % Plt Count (150-400) K/uL Neut % (Auto) (36-66) % Lymph % (Auto) (24-44) % [place] % (Auto) (2-6) % Eos % (Auto) (2-4) % Baso % (Auto) (0-1) % D-Dimer, Quantitative 748 H (0.0-400.0) ng/mL Puncture Site ABG pH (7.350-7.450) ABG pCO2 (35.0-42.0) mmHg ABG pO2 (75.0-100.0) mmHg ABG HCO3 (22.0-26.0) mmol/L ABG Total CO2 (23.0-27.0) mmol/L ABG O2 Saturation (95.0-98.0) % ABG O2 Content (15.0-23.0) %vol ABG Base Excess mm/L ABG Hemoglobin (13.5-18.0) g/dL ABG Oxyhemoglobin % ABG Carboxyhemoglobin (0.0-1.6) % ABG Methemoglobin % Guido Test O2 Delivery Device Oxygen Flow Rate L Sodium (140-148) mmol/L Potassium (3.6-5.2) mmol/L Chloride (100-108) mmol/L Carbon Dioxide (21-32) mmol/L Anion Gap (5.0-14.0) mmol/L BUN (7-18) mg/dL Creatinine (0.8-1.3) mg/dL Est Cr Clr Drug Dosing mL/min Estimated GFR (MDRD) (>60) Glucose (74-106) mg/dL Calcium (8.5-10.1) mg/dL Total Bilirubin (0.2-1.0) mg/dL AST (15-37) U/L ALT (12-78) U/L Alkaline Phosphatase (46-116) U/L Lactate Dehydrogenase 239 H (85-227) U/L Troponin I (0.000-0.056) ng/mL C-Reactive Protein 0.21 (0.0-0.3) mg/dL Total Protein (6.4-8.2) g/dL Albumin (3.4-5.0) g/dL Globulin (2.3-3.5) g/dL Albumin/Globulin Ratio (1.2-2.2) Procalcitonin < 0.05 ng/mL Result Diagrams: 09/07/19 10:04 09/07/19 10:04 Imaging Impressions Last 24 hrs: Chest x-ray-image personally reviewed-there are patchy bilateral but right greater than left airspace opacities that could be fluid or inflammatory. Heart size was normal. No obvious mass or lobar infiltrate CT pulmonary-angiogram images personally reviewed-IV contrast bolus not timed optimally and scan was nondiagnostic though no large central embolism was noted. Patchy bilateral groundglass changes were noted and this was felt to be concerning for COVID19 infection with less likely differential including pulmonary edema. No obvious masses were noted. EKG INTERPRETATION EKG Date: 09/07/19 Rhythm: Other (Sinus tachycardia) Rate (Beats/Min): 100 [place]: Normal P-Wave: Present QRS: Normal ST-T: Normal QT: Normal Sepsis Event Note - Evaluation Sepsis Screening Result: Possible Sepsis Risk - Focused Exam Vital Signs: Vital Signs Temp Pulse Resp BP Pulse Ox 09/07/19 11:17 105 H 15 141/75 H 93 L 09/07/19 10:47 98 11 L 121/68 94 L 09/07/19 10:27 102 H 19 140/67 95 09/07/19 10:17 107 H 15 138/74 88 L 09/07/19 10:03 36.6 C 108 H 21 H 157/87 H 95 09/07/19 09:57 36.6 C 108 H 21 H 157/87 H 95 Date Exam was Performed: 09/07/19 Time Exam was Performed: 15:30 *Q Meaningful Use (ADM) - VTE Risk Assess *Q Each Risk Factor Represents 1 Point: Age 41 - 59 years, Obesity ( BMI > 25 kg/m2 ), Serious lung disease including pneumonia Total Score 1 Point Risk Factors: 3 Each Risk Factor Represents 2 Points: None Total Score 2 Point Risk Factors: 0 Each Risk Factor Represents 3 Points: None Total Score 3 Point Risk Factors: 0 Each Risk Factor Represents 5 Points: None Total Score 5 Point Risk Factors: 0 Venous Thromboembolism Risk Factor Score *Q: 3 - Problem List (1) Pulmonary edema SNOMED Code(s): 85437198 ICD Code: J81.1 - CHRONIC PULMONARY EDEMA Status: Suspected Current Visit : Yes Qualifiers: Chronicity: acute Qualified Code(s): J81.0 - Acute pulmonary edema (2) Acute respiratory failure with hypoxia SNOMED Code(s): 61262887, 771772518 ICD Code: J96.01 - ACUTE RESPIRATORY FAILURE WITH HYPOXIA Status: Acute Current Visit: Yes (3) Diabetes mellitus SNOMED Code(s): 06062889 ICD Code: E11.9 - TYPE 2 DIABETES MELLITUS WITHOUT COMPLICATIONS Status: Chronic Current Visit: No Qualifiers: Diabetes mellitus type: type 2 Diabetes mellitus assisted insulin use: without accounting system expert use Diabetes mellitus complication status: with neurologic complications Diabetes mellitus complication detail: with polyneuropathy Qualified Code(s): E11.42 - Type 2 diabetes mellitus with diabetic polyneuropathy Problem List Initiated/Reviewed/Updated: Yes Orders Last 24hrs: Active Orders 24 hr Category Date Time Status Patient Status Manage Transfer [TRANSFER] Routine ADT 09/07/19 13:19 Ordered RT Aerosol Therapy [RC] ASDIRECTED Care 09/07/19 10:01 Active [id number] SARS-COV-2 RNA Routine Lab 09/07/19 11:00 Received TROPONIN I [CHEM] Stat Lab 09/07/19 12:48 Ordered Sodium Chloride 0.9% [Normal Saline] 100 ml Med 09/07/19 12:15 Active IV ASDIRECTED Resuscitation Status Routine Resus Stat 09/07/19 13:21 Ordered Medication Orders Sodium Chloride (Normal Saline) 100 mls @ 4 mls/sec IV ASDIRECTED BUDDY Last Admin: 09/07/19 12:26 Dose: 4 mls/sec Assessment/Plan Comment:: ASSESSMENT AND PLAN - Acute respiratory distress-complicated by acute respiratory failure with hypoxia. Imaging appears consistent with COVID19 infection and testing has been performed with results pending at the time of admission. Less likely this could be pulmonary edema. Patient is improving with diuresis. Supplemental oxygen requirement is decreasing. Not currently febrile. Laboratory studies could fit with a mild COVID19 infection or potentially with congestive heart failure. -Follow-up COVID19 testing -Isolation precautions until testing has returned -Supplement oxygen -Consider albuterol inhaler if wheezing or short of breath -Consider echocardiogram in the morning if COVID19 testing is negative Paroxysmal atrial fibrillation-sinus tachycardia at this time. Patient did have some palpitations but we have not found atrial fibrillation during this visit. -Cardiac monitoring Elevated troponin-mild elevation likely related to his hypoxia. No evidence for acute coronary syndrome on EKG. -Repeat troponin this afternoon Type 2 diabetes mellitus-suboptimally controlled at this time. Patient did not have his medications this morning. -Restart medications this evening -Accu-Cheks Maintenance issues - - DVT prophylaxis -enoxaparin - GI prophylaxis -not indicated - Nutrition -diabetic - Romo catheter -not indicated CODE STATUS -full code Admission justification -this patient will be admitted for inpatient services and is medically appropriate meeting medical necessity for inpatient admission as outlined in my documentation. I reasonably expect the patient will require inpatient services that span a period time over 2 midnights. I reasonably expect this patient to be discharged or transferred within 96 hours after admission to the Critical [facility]. Disposition -I would anticipate discharge home after the hospital stay Primary care physician -Dr. Junior Melton M.D. - Mortality Measure Prognosis:: Good
[2019-09-07] MEDS ORDERED: LORazepam 2 MG/ML SDV IVPUSH PRN (14:25)
[2019-09-07] MEDS ORDERED: Ondansetron 4 MG/2 ML SDV IV PRN (14:25)
[2019-09-07] MEDS ORDERED: Potassium Chloride 20 MEQ Tab.ER PO ONE (14:25)
[2019-09-07] MEDS ORDERED: Acetaminophen 325 MG Tab PO PRN (14:25)
[2019-09-07] MEDS ORDERED: Albuterol 0.083% 2.5 MG/3 ML Neb Soln NEB PRN (14:25)
[2019-09-07] MEDS ORDERED: Magnesium Hydroxide 400 MG/5 ML Susp 30 ML Cup PO PRN (14:25)
[2019-09-07] MEDS ORDERED: Ondansetron 4 MG Tab.DIS PO PRN (14:25)
[2019-09-07] MEDS: Magnesium Sulfate/Water 2 GM in Premix Bag 1 BAG IV SCH ×2 (17:11→21:56)
[2019-09-07] MEDS: metFORMIN 500 MG Tab PO SCH (17:24)
[2019-09-07] MEDS: glipiZIDE 5 MG Tab PO SCH (17:25)
[2019-09-07] MEDS: atorvaSTATin 10 MG Tab PO SCH (20:48)
[2019-09-07] MEDS: Metoprolol Succinate 25 MG Tab.ER PO SCH (20:48)
[2019-09-07] MEDS: Gabapentin 300 MG Cap PO SCH (20:48)
[2019-09-07] MEDS: Losartan 50 MG Tab PO SCH (20:48)
[2019-09-08] MEDS: metFORMIN 500 MG Tab PO SCH ×2 (08:30→16:52)
[2019-09-08] MEDS: glipiZIDE 5 MG Tab PO SCH ×2 (08:30→16:52)
[2019-09-08] MEDS: Liraglutide (rDNA Origin) 0.6 MG/0.1 ML 3 ML Pen SUBCUT SCH (08:31)
[2019-09-08] MEDS ORDERED: Atenolol 25 MG Tab PO SCH (09:00)
[2019-09-08] MEDS: amLODIPine 10 MG Tab PO SCH (09:48)
[2019-09-08] MEDS: Metoprolol Succinate 50 MG Tab.ER PO SCH (09:49)
[2019-09-08] MEDS: Losartan 50 MG Tab PO SCH ×2 (09:49→20:18)
--- NOTE | 2019-09-08 12:41 | PCM.PN ---
- General Info Date of Service: 09/08/19 Subjective Update: No acute events overnight and patient is feeling a fair amount better today. He is off supplemental oxygen as of this time. He has not had any chest pain. He has not had any fevers. His COVID19 testing came back negative. His troponin however did slowly rise throughout the afternoon and evening but is now starting to trend down. Vital signs have otherwise been stable. Blood sugars moderately elevated. Functional Status: Reports: Pain Controlled, Tolerating Diet - Review of Systems General: Denies: Fever Pulmonary: Denies: Shortness of Breath Cardiovascular: Denies: Chest Pain - Patient Data Vitals - Most Recent: Last Vital Signs Temp 36.5 C 09/08/19 10:58 Pulse 78 09/08/19 10:58 Resp 16 09/08/19 10:58 BP 149/75 H 09/08/19 10:58 Pulse Ox 94 L 09/08/19 10:58 Weight - Most Recent: 151.953 kg I&O - Last 24 Hours: Intake & Output 09/07/19 09/08/19 09/08/19 22:59 06:59 14:59 Intake Total 1070 200 Balance 1070 200 Lab Results Last 24 Hours: Laboratory Results - last 24 hr 09/07/19 09/07/19 09/07/19 Range/Units 11:00 12:48 14:25 WBC (4.5-11.0) K/uL RBC (4.30-5.90) M/uL Hgb (12.0-15.0) g/dL Hct (40.0-54.0) % MCV (80-98) fL MCH (27-31) pg MCHC (32-36) % Plt Count (150-400) K/uL Sodium (140-148) mmol/L Potassium (3.6-5.2) mmol/L Chloride (100-108) mmol/L Carbon Dioxide (21-32) mmol/L Anion Gap (5.0-14.0) mmol/L BUN (7-18) mg/dL Creatinine (0.8-1.3) mg/dL Est Cr Clr Drug Dosing mL/min Estimated GFR (MDRD) (>60) Glucose (74-106) mg/dL Calcium (8.5-10.1) mg/dL Magnesium 1.5 L (1.8-2.4) mg/dL Troponin I 0.085 H* (0.000-0.056) ng/mL COVID-19 PCR Negative (NEGATIVE) 09/07/19 09/07/19 09/08/19 Range/Units 16:50 21:50 06:07 WBC 8.6 (4.5-11.0) K/uL RBC 3.76 L (4.30-5.90) M/uL Hgb 12.1 (12.0-15.0) g/dL Hct 38.0 L (40.0-54.0) % MCV 101 H (80-98) fL MCH 32 H (27-31) pg MCHC 32 (32-36) % Plt Count 236 (150-400) K/uL Sodium (140-148) mmol/L Potassium (3.6-5.2) mmol/L Chloride (100-108) mmol/L Carbon Dioxide (21-32) mmol/L Anion Gap (5.0-14.0) mmol/L BUN (7-18) mg/dL Creatinine (0.8-1.3) mg/dL Est Cr Clr Drug Dosing mL/min Estimated GFR (MDRD) (>60) Glucose (74-106) mg/dL Calcium (8.5-10.1) mg/dL Magnesium (1.8-2.4) mg/dL Troponin I 0.391 H* 0.773 H* (0.000-0.056) ng/mL COVID-19 PCR (NEGATIVE) 09/08/19 09/08/19 Range/Units 06:07 06:07 WBC (4.5-11.0) K/uL RBC (4.30-5.90) M/uL Hgb (12.0-15.0) g/dL Hct (40.0-54.0) % MCV (80-98) fL MCH (27-31) pg MCHC (32-36) % Plt Count (150-400) K/uL Sodium 141 (140-148) mmol/L Potassium 4.3 (3.6-5.2) mmol/L Chloride 106 (100-108) mmol/L Carbon Dioxide 29 (21-32) mmol/L Anion Gap 5.8 (5.0-14.0) mmol/L BUN 17 (7-18) mg/dL Creatinine 0.8 (0.8-1.3) mg/dL Est Cr Clr Drug Dosing 105.21 mL/min Estimated GFR (MDRD) > 60 (>60) Glucose 279 H (74-106) mg/dL Calcium 8.2 L (8.5-10.1) mg/dL Magnesium (1.8-2.4) mg/dL Troponin I 0.675 H* (0.000-0.056) ng/mL COVID-19 PCR (NEGATIVE) Med Orders - Current: Current Medications Acetaminophen (Tylenol) 650 mg PO Q4H PRN PRN Reason: Pain (Mild 1-3)/fever Albuterol (Proventil Neb Soln) 2.5 mg NEB Q4H PRN PRN Reason: Shortness Of Breath/wheezing Amlodipine Besylate (Norvasc) 10 mg PO QAM [facility] Last Admin: 09/08/19 09:48 Dose: 10 mg Atorvastatin Calcium (Lipitor) 10 mg PO BEDTIME [facility] Last Admin: 09/07/19 20:48 Dose: 10 mg Gabapentin (Neurontin) 600 mg PO BEDTIME [facility] Last Admin: 09/07/19 20:48 Dose: 600 mg Glipizide (Glucotrol) 10 mg PO BIDAC [facility] Last Admin: 09/08/19 08:30 Dose: 10 mg Liraglutide (Victoza) 1.8 mg SUBCUT DAILY [facility] Last Admin: 09/08/19 08:31 Dose: 1.8 mg Lorazepam (Ativan) 0.5 mg IVPUSH Q4H PRN PRN Reason: Nausea/Vomiting Losartan Potassium (Cozaar) 50 mg PO BID [facility] Last Admin: 09/08/19 09:49 Dose: 50 mg Magnesium Hydroxide (Milk Of Magnesia) 30 ml PO Q12H PRN PRN Reason: Constipation Metformin HCl (Glucophage) 1,000 mg PO BIDMEALS [facility] Last Admin: 09/08/19 08:30 Dose: 1,000 mg Metoprolol Succinate (Toprol Xl) 25 mg PO BEDTIME [facility] Last Admin: 09/07/19 20:48 Dose: 25 mg Metoprolol Succinate (Toprol Xl) 50 mg PO QAM [facility] Last Admin: 09/08/19 09:49 Dose: 50 mg Ondansetron HCl (Zofran Odt) 4 mg PO Q6H PRN PRN Reason: Nausea able to take PO Ondansetron HCl (Zofran) 4 mg IV Q6H PRN PRN Reason: Nausea/Vomiting Senna/Docusate Sodium (Senna Plus) 1 tab PO BID PRN PRN Reason: Constipation Discontinued Medications Albuterol/Ipratropium (Duoneb 3.0-0.5 Mg/3 Ml) 3 ml NEB ONETIME ONE Stop: 09/07/19 10:02 Last Admin: 09/07/19 10:12 Dose: 3 ml Atenolol (Tenormin) 25 mg PO DAILY [facility] Last Admin: 09/08/19 09:49 Dose: Not Given Furosemide (Lasix) 40 mg IVPUSH ONETIME ONE Stop: 09/07/19 10:14 Last Admin: 09/07/19 10:20 Dose: 40 mg Sodium Chloride (Normal Saline) 100 mls @ 4 mls/sec IV ASDIRECTED [facility] Last Admin: 09/07/19 12:26 Dose: 4 mls/sec Magnesium Sulfate 2 gm/ Premix 50 mls @ 25 mls/hr IV Q6H BUDDY Stop: 09/08/19 00:29 Last Admin: 09/07/19 21:56 Dose: 25 mls/hr Iopamidol (Isovue-370 (76%)) 100 ml IV . DIRECTED ONE Stop: 09/07/19 12:10 Last Admin: 09/07/19 12:26 Dose: 100 ml Potassium Chloride (Klor-Con M20) 40 meq PO ONETIME ONE Stop: 09/07/19 14:26 Last Admin: 09/07/19 15:24 Dose: 40 meq - Exam Quality Assessment: No: Supplemental Oxygen General: Alert, Oriented, Cooperative, No Acute Distress Lungs: Clear to Auscultation, Normal Respiratory Effort GI/Abdominal Exam: Soft, No Distention Extremities: No Pedal Edema Psy/Mental Status: Alert, Normal Affect Sepsis Event Note - Evaluation Sepsis Screening Result: No Definite Risk - Focused Exam Vital Signs: Vital Signs Temp Pulse Pulse Resp BP BP Pulse Ox 09/08/19 10:58 36.5 C 78 16 149/75 H 94 L 09/08/19 09:49 86 147/76 H 09/08/19 09:48 147/76 H 09/08/19 07:00 35.9 C L 84 18 147/76 H 93 L 09/08/19 03:05 36.2 C 85 18 140/80 94 L Date Exam was Performed: 09/08/19 Time Exam was Performed: 16:24 - Problem List & Annotations (1) Pulmonary edema SNOMED Code(s): 71308580 Code(s): J81.1 - CHRONIC PULMONARY EDEMA Status: Suspected Current Visit : Yes Qualifiers: Chronicity: acute Qualified Code(s): J81.0 - Acute pulmonary edema (2) Acute respiratory failure with hypoxia SNOMED Code(s): 38261824, 736012505 Code(s): J96.01 - ACUTE RESPIRATORY FAILURE WITH HYPOXIA Status: Acute Current Visit: Yes (3) Diabetes mellitus SNOMED Code(s): 46159243 Code(s): E11.9 - TYPE 2 DIABETES MELLITUS WITHOUT COMPLICATIONS Status: Chronic Current Visit: No Qualifiers: Diabetes mellitus type: type 2 Diabetes mellitus senior care insulin use: without terminal block assembler use Diabetes mellitus complication status: with neurologic complications Diabetes mellitus complication detail: with polyneuropathy Qualified Code(s): E11.42 - Type 2 diabetes mellitus with diabetic polyneuropathy (4) Elevated troponin SNOMED Code(s): 701501761, 587316516, 476974594 Code(s): R79.89 - OTHER SPECIFIED ABNORMAL FINDINGS OF BLOOD CHEMISTRY Status: Acute Current Visit: Yes - Problem List Review Problem List Initiated/Reviewed/Updated: Yes - My Orders Last 24 Hours: My Active Orders 09/07/19 13:21 Resuscitation Status Routine 09/07/19 14:25 Patient Status [ADT] Routine Antiembolic Devices [RC] .Routine Cardiac Monitoring [RC] CONTINUOUS Intake and Output [RC] QSHIFT Notify Provider Vital Signs [RC] ASDIRECTED Oxygen Therapy [RC] PRN RT Aerosol Therapy [RC] ASDIRECTED Up With Assistance [RC] ASDIRECTED VTE/DVT Education [RC] Per Unit Routine Vital Signs [RC] Q4H Acetaminophen [Tylenol] 650 mg PO Q4H PRN Albuterol [Proventil Neb Soln] 2.5 mg NEB Q4H PRN Docusate Sodium/Sennosides [Senna Plus] 1 tab PO BID PRN LORazepam [Ativan] 0.5 mg IVPUSH Q4H PRN Magnesium Hydroxide [Milk of Magnesia] 30 ml PO Q12H PRN Ondansetron [Zofran ODT] 4 mg PO Q6H PRN Ondansetron [Zofran] 4 mg IV Q6H PRN Antiembolic Hose [OM.PC] Routine 09/07/19 16:30 glipiZIDE [Glucotrol] 10 mg PO BIDAC 09/07/19 17:00 metFORMIN [Glucophage] 1,000 mg PO BIDMEALS 09/07/19 21:00 Gabapentin [Neurontin] 600 mg PO BEDTIME Losartan [Cozaar] 50 mg PO BID Metoprolol Succinate [Toprol XL] 25 mg PO BEDTIME atorvaSTATin [Lipitor] 10 mg PO BEDTIME 09/07/19 Lunch Consistent Carbohydrate Diet [DIET] 09/08/19 07:00 Echo Comp wo Cont [US] Routine 09/08/19 09:00 Liraglutide [Victoza] 1.8 mg SUBCUT DAILY Metoprolol Succinate [Toprol XL] 50 mg PO QAM amLODIPine [Norvasc] 10 mg PO QAM 09/08/19 16:30 GLUCOSE POC LAB TO COLLECT [POC] QIDACANDBED 09/08/19 21:00 GLUCOSE POC LAB TO COLLECT [POC] QIDACANDBED 09/09/19 05:00 BASIC METABOLIC PANEL,BMP [CHEM] Timed TROPONIN I [CHEM] Timed 09/09/19 07:00 Myocardial Perf Spect Multi [NM] Routine 09/09/19 07:30 GLUCOSE POC LAB TO COLLECT [POC] QIDACANDBED 09/09/19 11:30 GLUCOSE POC LAB TO COLLECT [POC] QIDACANDBED 09/09/19 16:30 GLUCOSE POC LAB TO COLLECT [POC] QIDACANDBED 09/09/19 21:00 GLUCOSE POC LAB TO COLLECT [POC] QIDACANDBED 09/10/19 07:30 GLUCOSE POC LAB TO COLLECT [POC] QIDACANDBED - Plan Plan:: ASSESSMENT AND PLAN - Acute respiratory distress-complicated by acute respiratory failure with hypoxia. COVID19 testing was negative. Most likely this was a flash pulmonary edema type picture. Clinically he is doing well. Echocardiogram showed normal left ventricular function, moderate to severe mitral regurgitation and hypokinesis of the anterior wall of the left ventricle. I am somewhat concerned that he may have a significant flow-limiting lesion in the LAD. We are planning to do a stress test tomorrow and if it is abnormal he will go see a drying rack changer and if it is normal he will go home for outpatient follow-up. He has not had any chest pain and EKG did not suggest acute coronary syndrome. -Lexiscan stress test in the morning -Supplement oxygen if needed -Repeat troponin in the morning Paroxysmal atrial fibrillation-sinus rhythm so far during the course of the hospital stay. An episode of tachycardia could explain his symptoms from yesterday. -Cardiac monitoring Elevated troponin-mild elevation likely related to his hypoxia and did rise throughout the evening but is now trending down. No ischemic symptoms. -Repeat troponin tomorrow morning Type 2 diabetes mellitus-suboptimally controlled. -Restart medications this evening -Accu-Cheks Maintenance issues - - DVT prophylaxis -enoxaparin - GI prophylaxis -not indicated - Nutrition -diabetic Disposition -I would anticipate discharge home after the hospital stay Primary care physician -Dr. Junior Melton M.D.
[2019-09-08] MEDS ORDERED: Insulin Lispro 100 Unit/ML 3 ML KwikPen SUBCUT ONE (19:26)
[2019-09-08] MEDS: Gabapentin 300 MG Cap PO SCH (20:18)
[2019-09-08] MEDS: atorvaSTATin 10 MG Tab PO SCH (20:19)
[2019-09-08] MEDS: Metoprolol Succinate 25 MG Tab.ER PO SCH (20:20)
[2019-09-08] MEDS: Insulin Lispro 100 Unit/ML 3 ML KwikPen SUBCUT SCH (21:28)
[2019-09-09] MEDS: amLODIPine 10 MG Tab PO SCH (10:00)
[2019-09-09] MEDS: Losartan 50 MG Tab PO SCH (10:00)
[2019-09-09] MEDS: metFORMIN 500 MG Tab PO SCH (10:01)
[2019-09-09] MEDS: Liraglutide (rDNA Origin) 0.6 MG/0.1 ML 3 ML Pen SUBCUT SCH (10:01)
[2019-09-09] MEDS: glipiZIDE 5 MG Tab PO SCH (10:01)
[2019-09-09] MEDS: Metoprolol Succinate 50 MG Tab.ER PO SCH (10:02)
[2019-09-09] MEDS: Insulin Lispro 100 Unit/ML 3 ML KwikPen SUBCUT SCH ×2 (10:02→12:22)
[2019-09-09 10:08] VITALS: BP 149/81; PULSE 109
[2019-09-09] MEDS ORDERED: Heparin Sodium 5,000 Units/ML Vial IVPUSH ONE (11:42)
[2019-09-09] MEDS ORDERED: Heparin Sodium/D5W 25,000 UNITS/500 ML BAG IV SCH (11:45)
[2019-09-09] MEDS ORDERED: Aspirin 81 MG Tab.Chew PO ONE (12:00)
--- NOTE | 2019-09-09 12:11 | PCM.DCSUM1 ---
Discharge Summary - Hospital Course Brief History: 54-year-old male with history of poorly controlled type 2 diabetes mellitus, essential hypertension and morbid obesity who presented with acute onset of shortness of breath. He was admitted for management of acute hypoxic respiratory failure thought either secondary to COVID19 infection or possibly flash pulmonary edema. Diagnosis: Stroke: No - Discharge Data Discharge Date: 09/09/19 Discharge Disposition: DC/Tfer to [facility] 02 Condition: Stable - Referral to Home Health Primary Care Physician: PCP None - Discharge Diagnosis/Problem(s) (1) Pulmonary edema SNOMED Code(s): 99761170 ICD Code: J81.1 - CHRONIC PULMONARY EDEMA Status: Suspected Current Visit : Yes Qualifiers: Chronicity: acute Qualified Code(s): J81.0 - Acute pulmonary edema (2) Acute respiratory failure with hypoxia SNOMED Code(s): 58526974, 700870762 ICD Code: J96.01 - ACUTE RESPIRATORY FAILURE WITH HYPOXIA Status: Acute Current Visit: Yes (3) Diabetes mellitus SNOMED Code(s): 85654199 ICD Code: E11.9 - TYPE 2 DIABETES MELLITUS WITHOUT COMPLICATIONS Status: Chronic Current Visit: No Qualifiers: Diabetes mellitus type: type 2 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: without 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 use Diabetes mellitus complication status: with neurologic complications Diabetes mellitus complication detail: with polyneuropathy Qualified Code(s): E11.42 - Type 2 diabetes mellitus with diabetic polyneuropathy (4) Elevated troponin SNOMED Code(s): 821552724, 279186763, 014310125 ICD Code: R79.89 - OTHER SPECIFIED ABNORMAL FINDINGS OF BLOOD CHEMISTRY Status: Acute Current Visit: Yes (5) NSTEMI (non-ST elevated myocardial infarction) SNOMED Code(s): 65801725 ICD Code: I21.4 - NON-ST ELEVATION (NSTEMI) MYOCARDIAL INFARCTION Status: Acute Current Visit: Yes - Patient Summary/Data Hospital Course: Yuri presented to the emergency room on 09/06 with acute onset of shortness of breath while he was walking to his car. He was extremely hypoxic when paramedics arrived but did respond well to supplemental oxygen on the way. Laboratory studies in the emergency room were fairly unremarkable including a normal troponin level. EKG did not show any acute ischemic changes. A chest x- ray was obtained and showed patchy peripheral opacities. There was some concern for COVID19 infection so we did perform a d-dimer, LDH and CRP. The d- dimer was moderately elevated near 800 and the LDH was mildly elevated. A CT pulmonary angiogram was obtained and although the study was nondiagnostic a large central embolus was not noted. Peripheral groundglass opacities were noted and there was concern for COVID19 infection with pulmonary edema thought to be less likely. Patient was admitted to the hospital under precautions for COVID19. He did receive a dose of furosemide in the emergency room. Over the next several hours his respiratory status improved with the diuresis. Serial troponin levels did rise with the second level being 0.08 and then the next level later in the afternoon 0.3. By late in the afternoon he was doing much better from a respiratory standpoint and was requiring only 1 L of oxygen. He did not have chest pain prior to or during the hospital admission. His troponin level peaked at 0.7 the night of admission and then has trended down since that time. His COVID19 testing was negative. The morning after admission we did perform an echocardiogram which showed an anterior hypokinesis as well as moderate mitral regurgitation. His ejection fraction was normal on the echocardiogram. He has continued to feel well and has not had any fevers or chest pain. Given the anterior wall motion abnormality and mild troponin elevations I was worried about coronary artery flow. We scheduled him for a Lexiscan stress test to be completed the next day. He did remain stable overnight and has remained pain-free. On the morning of discharge we did perform the stress portion of a Lexiscan myocardial perfusion study. The perfusion portion of the study showed a large anterior, apical and posterior defect. Because of his size we were not able to complete the rest portion of the test for comparison. His ejection fraction with the stress was only about 35% and he had a very dilated left ventricle with stress. I was extremely concerned about a significant LAD or possibly left main lesion. I did talk to the cardiology folks at [facility] in [place]. They were agreeable to transfer for angiogram and further evaluation of the suspicion. He will be receiving a heparin infusion which will be started prior to transfer. He is stable and safe for transfer at this point and the benefits outweigh the risks. He would benefit from urgent intervention. - Patient Instructions Diet: NPO Activity: Bedrest Other/Special Instructions: 1. Transfer to [facility] - NSTEMI - Dr Alexander accepting - Discharge Plan *PRESCRIPTION DRUG MONITORING PROGRAM REVIEWED*: Not Applicable *COPY OF PRESCRIPTION DRUG MONITORING REPORT IN PATIENT PAMELA: Not Applicable Home Medications: Home Meds glipiZIDE [Glipizide] 10 mg PO BID 07/01/14 [History] Gabapentin [Neurontin] 600 mg PO BEDTIME 10/01/14 [History] metFORMIN HCl [Metformin HCl] 1,000 mg PO BIDAC 11/19/16 [History] Ibuprofen 400 - 600 mg PO BEDTIME 09/07/19 [History] Liraglutide [Victoza] 1.8 mg SUBCUT DAILY 09/07/19 [History] Losartan [Cozaar] 50 mg PO BID 09/07/19 [History] Metoprolol Succinate [Toprol XL] 25 mg PO BEDTIME 09/07/19 [History] Metoprolol Succinate [Toprol XL] 50 mg PO QAM 09/07/19 [History] Triamcinolone Acetonide [Triamcinolone Acetonide 0.1% Crm] 1 applic .XX BID PRN 09/07/19 [History] amLODIPine Besylate [Amlodipine Besylate] 10 mg PO QAM 09/07/19 [History] atorvaSTATin [Lipitor] 10 mg PO BEDTIME 09/07/19 [History] Oxygen Therapy Mode: Room Air - Discharge Summary/Plan Comment DC Time >30 min.: Yes (60-transfer to acute hospital) - Patient Data Vitals - Most Recent: Last Vital Signs Temp 36.6 C 09/09/19 07:48 Pulse 109 H 09/09/19 10:02 Resp 16 09/09/19 08:23 BP 149/81 H 09/09/19 10:02 Pulse Ox 93 L 09/09/19 08:23 Weight - Most Recent: 151.953 kg I&O - Last 24 hours: Intake & Output 09/08/19 09/09/19 09/09/19 22:59 06:59 14:59 Intake Total 300 Balance 300 Lab Results - Last 24 hrs: Laboratory Results - last 24 hr 09/09/19 Range/Units 06:13 Sodium 140 (140-148) mmol/L Potassium 4.0 (3.6-5.2) mmol/L Chloride 104 (100-108) mmol/L Carbon Dioxide 30 (21-32) mmol/L Anion Gap 5.9 (5.0-14.0) mmol/L BUN 14 (7-18) mg/dL Creatinine 0.6 L (0.8-1.3) mg/dL Est Cr Clr Drug Dosing 140.75 mL/min Estimated GFR (MDRD) > 60 (>60) Glucose 161 H (74-106) mg/dL Calcium 8.3 L (8.5-10.1) mg/dL Troponin I 0.358 H* (0.000-0.056) ng/mL Med Orders - Current: Current Medications Acetaminophen (Tylenol) 650 mg PO Q4H PRN PRN Reason: Pain (Mild 1-3)/fever Last Admin: 09/09/19 10:00 Dose: 650 mg Albuterol (Proventil Neb Soln) 2.5 mg NEB Q4H PRN PRN Reason: Shortness Of Breath/wheezing Amlodipine Besylate (Norvasc) 10 mg PO QAM [facility] Last Admin: 09/09/19 10:00 Dose: 10 mg Atorvastatin Calcium (Lipitor) 10 mg PO BEDTIME [facility] Last Admin: 09/08/19 20:19 Dose: 10 mg Gabapentin (Neurontin) 600 mg PO BEDTIME [facility] Last Admin: 09/08/19 20:18 Dose: 600 mg Glipizide (Glucotrol) 10 mg PO BIDAC [facility] Last Admin: 09/09/19 10:01 Dose: 10 mg Heparin Sodium/Dextrose (Heparin 25,000 Units In D5w 500 Ml) 25,000 units in 500 mls @ 20 mls/hr IV TITRATE [facility]; Protocol Insulin Human Lispro (Humalog) 0 unit SUBCUT QIDACANDBED [facility]; Protocol Last Admin: 09/09/19 10:02 Dose: 2 units Liraglutide (Victoza) 1.8 mg SUBCUT DAILY [facility] Last Admin: 09/09/19 10:01 Dose: 1.8 mg Lorazepam (Ativan) 0.5 mg IVPUSH Q4H PRN PRN Reason: Nausea/Vomiting Losartan Potassium (Cozaar) 50 mg PO BID [facility] Last Admin: 09/09/19 10:00 Dose: 50 mg Magnesium Hydroxide (Milk Of Magnesia) 30 ml PO Q12H PRN PRN Reason: Constipation Metformin HCl (Glucophage) 1,000 mg PO BIDMEALS [facility] Last Admin: 09/09/19 10:01 Dose: 1,000 mg Metoprolol Succinate (Toprol Xl) 25 mg PO BEDTIME [facility] Last Admin: 09/08/19 20:20 Dose: Not Given Metoprolol Succinate (Toprol Xl) 50 mg PO QAM [facility] Last Admin: 09/09/19 10:02 Dose: 50 mg Ondansetron HCl (Zofran Odt) 4 mg PO Q6H PRN PRN Reason: Nausea able to take PO Ondansetron HCl (Zofran) 4 mg IV Q6H PRN PRN Reason: Nausea/Vomiting Senna/Docusate Sodium (Senna Plus) 1 tab PO BID PRN PRN Reason: Constipation Discontinued Medications Albuterol/Ipratropium (Duoneb 3.0-0.5 Mg/3 Ml) 3 ml NEB ONETIME ONE Stop: 09/07/19 10:02 Last Admin: 09/07/19 10:12 Dose: 3 ml Aspirin (Aspirin) 324 mg PO ONETIME ONE Stop: 09/09/19 12:01 Last Admin: 09/09/19 11:57 Dose: 324 mg Atenolol (Tenormin) 25 mg PO DAILY [facility] Last Admin: 09/08/19 09:49 Dose: Not Given Furosemide (Lasix) 40 mg IVPUSH ONETIME ONE Stop: 09/07/19 10:14 Last Admin: 09/07/19 10:20 Dose: 40 mg Heparin Sodium (Porcine) (Heparin Sodium) 4,000 units IVPUSH .BOLUS ONE Stop: 09/09/19 11:43 Last Admin: 09/09/19 12:01 Dose: 4,000 units Sodium Chloride (Normal Saline) 100 mls @ 4 mls/sec IV ASDIRECTED [facility] Last Admin: 09/07/19 12:26 Dose: 4 mls/sec Magnesium Sulfate 2 gm/ Premix 50 mls @ 25 mls/hr IV Q6H [facility] Stop: 09/08/19 00:29 Last Admin: 09/07/19 21:56 Dose: 25 mls/hr Insulin Human Lispro (Humalog) 10 unit SUBCUT ONETIME ONE Stop: 09/08/19 19:27 Last Admin: 09/08/19 20:09 Dose: 10 units Iopamidol (Isovue-370 (76%)) 100 ml IV . DIRECTED ONE Stop: 09/07/19 12:10 Last Admin: 09/07/19 12:26 Dose: 100 ml Potassium Chloride (Klor-Con M20) 40 meq PO ONETIME ONE Stop: 09/07/19 14:26 Last Admin: 09/07/19 15:24 Dose: 40 meq Regadenoson (Lexiscan) 0.4 mg IVPUSH ONETIME ONE Stop: 09/09/19 08:31 Last Admin: 09/09/19 08:25 Dose: 0.4 mg - Exam Quality Assessment: Reports: Supplemental Oxygen General: Reports: Alert, Oriented, Cooperative, No Acute Distress Lungs: Reports: Clear to Auscultation, Normal Respiratory Effort Cardiovascular: Reports: Regular Rate, Regular Rhythm Extremities: No Pedal Edema Psy/Mental Status: Reports: Alert, Normal Affect
--- NOTE | 2019-09-09 12:39 | CRLNM ---
MYOCARDIAL PERFUSION SCAN CLINICAL HISTORY: 54-year-old male. Shortness of breath on exertion. Elevated troponins. Type 2 diabetes. Atrial fibrillation. Pulmonary edema. 5 feet 9 inches, 335 pounds. TECHNIQUE: (Gated SPECT with wall motion and ejection fraction) Stress: Pharmacologic 31.0 mCi [id number]. (IV) The resting images were not performed. Comparison: None. FINDINGS: There is good uptake of activity by the left ventricle. There is severe left ventricular enlargement. YWA=095 mL. ADJ=839 mL. There is soft tissue attenuation. There is a large area of moderate to severely decreased activity involving the mid and apical anterior and anteroseptal wells, apex and apical inferior wall. Without the resting images it cannot be differentiated whether this represents a large area of infarction or a large area of moderate to severe ischemia or a combination of these. No other significant fixed or reversible defects are identified. The gated images demonstrate a low left ventricle ejection fraction of 37 percent. There is global hypokinesis with severe hypokinesis to akinesis in the mid and apical anterior and anteroseptal wells and apex. IMPRESSION: 1) There is a large stress perfusion defect involving the mid and apical anterior and anteroseptal wells, apex and apical inferior wall. This is consistent with infarction, ischemia or a combination of these. 2) Low left ventricle ejection fraction of 37 percent. 3) Severe left ventricular enlargement. 4) Please note that resting images were not obtained. 5) These findings were called to and discussed with Dr. Melton on 09/09/2019 at approximately 10:20 a.m. IDALMIS AREVALO M.D. Transcribed: 10:37 a.m. [email or web address] RJ/Dictated by: Idalmis Arevalo MD @ 09/09/2019 10:24:00 AM (Electronically Signed)
--- NOTE | 2019-09-09 16:27 | STRESS ---
DATE OF SERVICE: 09/09/2019 PROPOSED PROCEDURE: Lexiscan stress test. INDICATION FOR STRESS TEST: Dyspnea on exertion, elevated troponin. DESCRIPTION OF PROCEDURE: Yuri is a 54-year-old male here for an inpatient stress test. His baseline EKG shows a sinus rhythm with a right axis deviation, but otherwise no significant abnormalities. Baseline blood pressure was 153/86, and his pulse was around 100. The stress test was administered per the protocol with injection of the Lexiscan followed by the Myoview. Review of the continuous EKG monitoring does show some very slight changes in the inferior leads, in particular lead III and aVF, as well as slight changes in V5 and V6. These are 0.5 mm or less in depth. They did start shortly after the Myoview was injected and persisted for the most part through the recovery phase. The patient did have a drop in his blood pressure after the Lexiscan was administered down to 129/73. His heart rate did rise after the Lexiscan was administered to a maximum of 112. Review of the service technician's notes suggest that the patient had an anxious feeling as well as mild lightheadedness, mild headache and upset stomach in the early recovery phase. Symptoms resolved without a reversal medication. After completion of the test, his blood pressure was 135/75, and his pulse was 103. IMPRESSION: Negative EKG portion of the stress test with only very slight inferior and lateral changes noted that did not reach significance criteria. The patient did not report chest pain or dyspnea. The nuclear medicine portion will be interpreted separately. Adrian Melton MD /[id number]
== END 2019-09-09 12:50 | DRG 189 ==
LOC: JP.ED 09:57 → JP.MS 13:19
PROVIDERS: ADMIT Internal Medicine; ATTEND Internal Medicine
PROC: 8E0ZXY6 Isolation (ICD-10-PCS; principal; 2019-09-07)
DX: J96.01 Acute respiratory failure with hypoxia (principal); I21.4 Non-ST elevation (NSTEMI) myocardial infarction; J81.0 Acute pulmonary edema; Z68.42 Body mass index [BMI] 45.0-49.9, adult; E11.42 Type 2 diabetes mellitus with diabetic polyneuropathy; Z20.828 Contact with and (suspected) exposure to other viral communicable diseases; H54.7 Unspecified visual loss; I10 Essential (primary) hypertension; E11.21 Type 2 diabetes mellitus with diabetic nephropathy; M10.9 Gout, unspecified; F90.9 Attention-deficit hyperactivity disorder, unspecified type; I48.0 Paroxysmal atrial fibrillation; E66.01 Morbid (severe) obesity due to excess calories; Z79.84 Long term (current) use of oral hypoglycemic drugs; Z79.899 Other long term (current) drug therapy; Z87.01 Personal history of pneumonia (recurrent); Z87.442 Personal history of urinary calculi; Z90.89 Acquired absence of other organs; Z87.440 Personal history of urinary (tract) infections; Z87.891 Personal history of nicotine dependence
CPT/HCPCS: 36415; 36600; 71045; 71275; 78451; 80048; 80053; 82803; 82962; 83615; 83735; 84145; 84484; 85025; 85027; 85379; 86140; 93017; 93306; 94640; 96374; 99285-25; A9270-GY; A9500; J1644; J1815; J1940; J2785; J3475; J7050; J7620-GY; Q9967

== ENCOUNTER 2019-09-19 20:18 | Emergency (ER) | payer MEDICAID, OTHER ==
[2019-09-19] MEDS ORDERED: Sodium Chloride 0.9% 10 ML Syringe FLUSH PRN (20:44)
[2019-09-19] MEDS ORDERED: Sodium Chloride 0.9% 1,000 ML IV SCH ×2 (20:45→22:00)
--- NOTE | 2019-09-19 20:55 | EDM.PDOC ---
ED HPI GENERAL MEDICAL PROBLEM - General Chief Complaint: General Stated Complaint: MEDICAL Time Seen by Provider: 09/19/19 20:45 Source of Information: Reports: Patient History Limitations: Reports: No Limitations - History of Present Illness INITIAL COMMENTS - FREE TEXT/NARRATIVE: 54 year old male present to ER with son due to fever, general malaise and weakness. Patient is unable to give very good details about when and why he feels ill today. Patient believes he felt well yesterday without any concerns. Patient had poorly controlled diabetes and on insulin. Patient does not reacall eating the afternoon/evening due to feeling ill and nauseated. Patient thought he had air conditioning in his trailer but not sure if it was working today. He started feeling ill around 3pm today and did not improve this evening so his son contacted his brother whom transported him to the ER in [place] for evaluation. Patient feels warm and has a slight cough but non productive. Patient felt warm but did not take his temperature today. Patient denies urinary symptoms diarrhea or constipation. Patient was recently hospitalized after abnormal stress test on September 08 results in transfer to [place] then on to [facility] for CABG this past week. - Related Data Allergies Allergy/AdvReac Type Severity Reaction Status Date / Time No Known Allergies Allergy Verified 09/19/19 20:32 Home Meds: Home Meds Gabapentin [Neurontin] 600 mg PO BEDTIME 10/01/14 [History] metFORMIN HCl [Metformin HCl] 1,000 mg PO BIDAC 11/19/16 [History] Ibuprofen 400 - 600 mg PO BEDTIME 09/07/19 [History] Liraglutide [Victoza] 1.8 mg SUBCUT DAILY 09/07/19 [History] Metoprolol Succinate [Toprol XL] 25 mg PO BEDTIME 09/07/19 [History] Metoprolol Succinate [Toprol XL] 50 mg PO QAM 09/07/19 [History] atorvaSTATin [Lipitor] 40 mg PO BEDTIME 09/07/19 [History] Amiodarone [Cordarone] 200 mg PO DAILY 09/19/19 [History] Ascorbic Acid [C-500] 500 mg PO DAILY 09/19/19 [History] Aspirin 325 mg PO DAILY 09/19/19 [History] Docusate Sodium 250 mg PO ASDIRECTED 09/19/19 [History] Furosemide [Lasix] 20 mg PO DAILY 09/19/19 [History] Hydrocodone/Acetaminophen [Hydrocodon-Acetaminophn 10-325] 1 tab PO Q4H PRN 05/09 [History] Potassium Chloride [Klor-Con 8] 16 meq PO DAILY 09/19/19 [History] Past Medical History HEENT History: Reports: Impaired Vision Cardiovascular History: Reports: Arrhythmia, Bypass, Hypertension, MA, SOB on Exertion Respiratory History: Reports: Pneumonia, Recurrent Genitourinary History: Reports: Diabetic Nephropathy, Renal Calculus, UTI, Recurrent Musculoskeletal History: Reports: Gout, Other (See Below) Other Musculoskeletal History: neuropathy Neurological History: Reports: Neuropathy, Diabetic, Vertigo Psychiatric History: Reports: ADHD Endocrine/Metabolic History: Reports: Diabetes, Type II, Obesity/BMI 30+ Dermatologic History: Reports: Eczema - Infectious Disease History Infectious Disease History: Reports: Chicken Pox, Measles, Mumps - Past Surgical History Head Surgeries/Procedures: Reports: None HEENT Surgical History: Reports: Tonsillectomy Cardiovascular Surgical History: Reports: Coronary Artery Bypass Male Surgical History: Reports: Other (See Below) Other Male Surgeries/Procedures: abcess removed from back of scrotum Social & Family History - Family History Family Medical History: Noncontributory - Tobacco Use Smoking Status *Q: Former Smoker Years of Tobacco use: 20 Used Tobacco, but Quit: Yes Month/Year Tobacco Last Used: 30 years ago - Caffeine Use Caffeine Use: Reports: Coffee, Energy Drinks, Soda, Tea - Recreational Drug Use Recreational Drug Use: No ED ROS GENERAL - Review of Systems Review Of Systems: Unable To Obtain (poor historian unable to give details about what happended today) Reason Not Obtained: slow to respond to questioning did not improve after IVF given ED EXAM, GENERAL - Physical Exam Exam: See Below Exam Limited By: No Limitations General Appearance: Alert, WD/WN, Lethargic (slightyl slow to respond to questioning) Eye Exam: Bilateral Eye: EOMI, Normal Inspection Ears: Normal External Exam, Hearing Grossly Normal Nose: Normal Inspection Throat/Mouth: Normal Inspection, Other (dry mouth) Head: Atraumatic Neck: Normal Inspection (short ) Respiratory/Chest: Lungs Clear, Other (increased repiratory rate noted. ) Cardiovascular: Regular Rate, Rhythm (with murmur ), Other (anterior sternal chest scar noted from recent CABG) GI/Abdominal: Soft (increased abdominal girth limiting exam ) Extremities: Normal Inspection, No Pedal Edema, Other (discolor distal skin consistent with PVD ) Neurological: Alert, Oriented, CN II-XII Intact, Slow to Respond, Abnormal Gait (weak and unsteady) Skin Exam: Dry (red and warm to touch ) Course - Vital Signs Last Recorded V/S: Last Vital Signs Temp 38.8 C H 09/19/19 20:32 Pulse 101 H 09/19/19 20:32 Resp 20 09/19/19 20:32 BP 131/62 09/19/19 20:40 Pulse Ox 92 L 09/19/19 20:40 - Orders/Labs/Meds Orders: Active Orders 24 hr Category Date Time Status Cardiac Monitoring [RC] .As Directed Care 09/19/19 20:43 Active Peripheral IV Care [RC] . DIRECTED Care 09/19/19 20:44 Active Vital Signs [RC] PER UNIT ROUTINE Care 09/19/19 21:49 Ordered CXR [Chest 1V Frontal] [CR] Stat Exams 09/19/19 21:01 Taken CULTURE BLOOD [BC] Urgent Lab 09/19/19 21:20 Received CULTURE BLOOD [BC] Urgent Lab 09/19/19 21:27 Received UA W/MICROSCOPIC [URIN] Stat Lab 09/19/19 21:02 Ordered Sodium Chloride 0.9% [Normal Saline] 1,000 ml Med 09/19/19 20:45 Active IV ASDIRECTED Sodium Chloride 0.9% [Normal Saline] 1,000 ml Med 09/19/19 22:00 Ordered IV ASDIRECTED Sodium Chloride 0.9% [Saline Flush] Med 09/19/19 20:44 Active 10 ml FLUSH ASDIRECTED PRN Blood Culture x2 Reflex Set [OM.PC] Urgent Oth 09/19/19 21:06 Ordered Peripheral IV Insertion Adult [OM.PC] Urgent Oth 09/19/19 20:43 Ordered Medication Orders Sodium Chloride (Normal Saline) 1,000 mls @ 500 mls/hr IV ASDIRECTED BUDDY Last Admin: 09/19/19 21:00 Dose: 500 mls/hr Sodium Chloride (Normal Saline) 1,000 mls @ 250 mls/hr IV ASDIRECTED BUDDY Sodium Chloride (Saline Flush) 10 ml FLUSH ASDIRECTED PRN PRN Reason: Keep Vein Open Last Admin: 09/19/19 20:59 Dose: 10 ml Labs: Laboratory Tests 09/19/19 09/19/19 09/19/19 Range/Units 20:55 20:55 20:55 WBC 19.8 H (4.5-11.0) K/uL RBC 3.75 L (4.30-5.90) M/uL Hgb 11.6 L (12.0-15.0) g/dL Hct 35.4 L (40.0-54.0) % MCV 94 (80-98) fL MCH 31 (27-31) pg MCHC 33 (32-36) % Plt Count 392 (150-400) K/uL Neut % (Auto) 91 H (36-66) % Lymph % (Auto) 3 L (24-44) % Franklin % (Auto) 6 (2-6) % Eos % (Auto) 0 L (2-4) % Baso % (Auto) 0 (0-1) % Sodium 143 (140-148) mmol/L Potassium 4.3 (3.6-5.2) mmol/L Chloride 103 (100-108) mmol/L Carbon Dioxide 30 (21-32) mmol/L Anion Gap 9.8 (5.0-14.0) mmol/L BUN 16 (7-18) mg/dL Creatinine 1.2 D (0.8-1.3) mg/dL Est Cr Clr Drug Dosing 70.37 mL/min Estimated GFR (MDRD) > 60 (>60) Glucose 113 H (74-106) mg/dL Lactic Acid (0.4-2.0) mmol/L Calcium 8.5 (8.5-10.1) mg/dL Total Bilirubin 0.6 (0.2-1.0) mg/dL AST 16 (15-37) U/L ALT 23 (12-78) U/L Alkaline Phosphatase 76 (46-116) U/L Creatine Kinase 41 (39-308) U/L C-Reactive Protein (0.0-0.3) mg/dL Total Protein 6.8 (6.4-8.2) g/dL Albumin 2.9 L (3.4-5.0) g/dL Globulin 3.9 H (2.3-3.5) g/dL Albumin/Globulin Ratio 0.7 L (1.2-2.2) Procalcitonin ng/mL 09/19/19 09/19/19 09/19/19 Range/Units 21:06 21:08 21:09 WBC (4.5-11.0) K/uL RBC (4.30-5.90) M/uL Hgb (12.0-15.0) g/dL Hct (40.0-54.0) % MCV (80-98) fL MCH (27-31) pg MCHC (32-36) % Plt Count (150-400) K/uL Neut % (Auto) (36-66) % Lymph % (Auto) (24-44) % Franklin % (Auto) (2-6) % Eos % (Auto) (2-4) % Baso % (Auto) (0-1) % Sodium (140-148) mmol/L Potassium (3.6-5.2) mmol/L Chloride (100-108) mmol/L Carbon Dioxide (21-32) mmol/L Anion Gap (5.0-14.0) mmol/L BUN (7-18) mg/dL Creatinine (0.8-1.3) mg/dL Est Cr Clr Drug Dosing mL/min Estimated GFR (MDRD) (>60) Glucose (74-106) mg/dL Lactic Acid 1.9 (0.4-2.0) mmol/L Calcium (8.5-10.1) mg/dL Total Bilirubin (0.2-1.0) mg/dL AST (15-37) U/L ALT (12-78) U/L Alkaline Phosphatase (46-116) U/L Creatine Kinase (39-308) U/L C-Reactive Protein 2.97 H (0.0-0.3) mg/dL Total Protein (6.4-8.2) g/dL Albumin (3.4-5.0) g/dL Globulin (2.3-3.5) g/dL Albumin/Globulin Ratio (1.2-2.2) Procalcitonin 0.88 ng/mL Bed side glucose in 121 Meds: Medications Generic Name Dose Route Start Last Admin Trade Name Freq PRN Reason Stop Dose Admin Sodium Chloride 1,000 mls @ 500 mls/hr 09/19/19 20:45 09/19/19 21:00 Normal Saline IV 500 mls/hr ASDIRECTED BUDDY Administration Sodium Chloride 1,000 mls @ 250 mls/hr 09/19/19 22:00 Normal Saline IV ASDIRECTED BUDDY Sodium Chloride 10 ml 09/19/19 20:44 09/19/19 20:59 Saline Flush FLUSH 10 ml ASDIRECTED PRN Administration Keep Vein Open Discontinued Medications Generic Name Dose Route Start Last Admin Trade Name Sherin PRN Reason Stop Dose Admin Acetaminophen 650 mg 09/19/19 21:57 Tylenol PO 09/19/19 21:58 NOW ONE Metoclopramide HCl 5 mg 09/19/19 21:26 09/19/19 21:40 Reglan IV 09/19/19 21:27 5 mg ONETIME ONE Administration - Radiology Interpretation Free Text/Narrative:: CXR PA Portable: Cardiomegaly noted with poor inspiration. No focal infiltrate noted. Images read by myself during ER visit. Radiology report pending. - Re-Assessments/Exams Free Text/Narrative Re-Assessment/Exam: Spoke to patient regarding elevated WBC and fever with concerns for possible infection or heat exhaustion after recent CABG surgery at [facility]. I am recommending transfer to [facility] for admission due to fever, recent surgery and possible heat exhaustion in light of recent surgery cannot rule out post surgical infection as cause for fever. BC x 2 pending, Urine sample requested but not available at this time from patient. Tylenol given first liter of NS running. Blood work shows elevated WBC with shift in neutrophils. Slight decreased renal function with possibility of heat exhaustion due to not acclimated to change in temperature and humidity today and non-functioning air- conditioning. Unfortunately no inpatient bed available at [place] this evening. Patient was agreeable to transfer to [facility] for further evaluation due to recent CABG, fever with unknown source. Patient was tested for COVID before CABG intervention in [place] but testing may be at [place]. 09/19/19 21:55 [facility], Dr Webb accepted transfer for further medical admission for fever or unknown origin in 1 week S/p CABG patient with possible heat exhaustion and acute renal insufficiency Creatinine 0.89 previous now 1.2. Lactic acid 1.9 Procal: 0.88. No acute infiltrate noted on CXR. No IV antibiotic or additional treatment recommendations offered before transfer. 09/19/19 22:03 Departure - Departure Time of Disposition: 22:20 Disposition: DC/Tfer to [facility] 02 Clinical Impression: Acute renal insufficiency, Fever, Heat exhaustion - Discharge Information Referrals: Dwayne Pacheco MD [Primary Care Provider] - Forms: Interfacility Transfer [facility] Sepsis Event Note - Evaluation Sepsis Screening Result: Possible Sepsis Risk - Focused Exam Vital Signs: Vital Signs Temp Pulse Resp BP Pulse Ox 09/19/19 20:40 131/62 92 L 09/19/19 20:32 38.8 C H 101 H 20 163/114 H 89 L Date Exam was Performed: 09/19/19 Time Exam was Performed: 21:58 - Problem List & Annotations (1) Acute renal insufficiency SNOMED Code(s): 905462254 Code(s): N28.9 - DISORDER OF KIDNEY AND URETER, UNSPECIFIED Status: Acute Current Visit: Yes (2) Fever SNOMED Code(s): 304665566 Code(s): R50.9 - FEVER, UNSPECIFIED Status: Acute Current Visit: Yes - My Orders Last 24 Hours: My Active Orders 09/19/19 20:43 Cardiac Monitoring [RC] .As Directed Peripheral IV Insertion Adult [OM.PC] Urgent 09/19/19 20:44 Peripheral IV Care [RC] . DIRECTED Sodium Chloride 0.9% [Saline Flush] 10 ml FLUSH ASDIRECTED PRN 09/19/19 20:45 Sodium Chloride 0.9% [Normal Saline] 1,000 ml IV ASDIRECTED 09/19/19 21:01 CXR [Chest 1V Frontal] [CR] Stat 09/19/19 21:02 UA W/MICROSCOPIC [URIN] Stat 09/19/19 21:06 Blood Culture x2 Reflex Set [OM.PC] Urgent 09/19/19 21:20 CULTURE BLOOD [BC] Urgent 09/19/19 21:27 CULTURE BLOOD [BC] Urgent 09/19/19 21:49 Vital Signs [RC] PER UNIT ROUTINE 09/19/19 22:00 Sodium Chloride 0.9% [Normal Saline] 1,000 ml IV ASDIRECTED - Assessment/Plan Last 24 Hours: My Active Orders 09/19/19 20:43 Cardiac Monitoring [RC] .As Directed Peripheral IV Insertion Adult [OM.PC] Urgent 09/19/19 20:44 Peripheral IV Care [RC] . DIRECTED Sodium Chloride 0.9% [Saline Flush] 10 ml FLUSH ASDIRECTED PRN 09/19/19 20:45 Sodium Chloride 0.9% [Normal Saline] 1,000 ml IV ASDIRECTED 09/19/19 21:01 CXR [Chest 1V Frontal] [CR] Stat 09/19/19 21:02 UA W/MICROSCOPIC [URIN] Stat 09/19/19 21:06 Blood Culture x2 Reflex Set [OM.PC] Urgent 09/19/19 21:20 CULTURE BLOOD [BC] Urgent 09/19/19 21:27 CULTURE BLOOD [BC] Urgent 09/19/19 21:49 Vital Signs [RC] PER UNIT ROUTINE 09/19/19 22:00 Sodium Chloride 0.9% [Normal Saline] 1,000 ml IV ASDIRECTED
[2019-09-19] MEDS ORDERED: Metoclopramide 10 MG/2 ML SDV IV ONE (21:26)
[2019-09-19] MEDS ORDERED: Acetaminophen 325 MG Tab PO ONE (21:57)
[2019-09-19 22:27] VITALS: BP 141/71; PULSE 94
--- NOTE | 2019-09-20 09:20 | CR ---
CHEST: Portable 09/19/2019 at 917 CLINICAL HISTORY:Weakness, recent CABG COMPARISON:09/07/2019 FINDINGS: The heart is enlarged. It is increased in size since the prior study. Pulmonary vascular areas cephalized. Patient has had previous sternotomy. There are atherosclerotic changes in the aorta.. There is mild interstitial prominence. Some of this is chronic. There is some increased density in the retrocardiac region which could represent infiltrate or edema Impression: Cardiomegaly Previous sternotomy Mild pulmonary vascular cephalization suggests pulmonary venous hypertension Prominent lung markings are likely chronic Patchy left lower lobe density may represent some pulmonary edema, patchy atelectasis or infiltrate. Upright two-view chest recommended when patient's condition allows
== END 2019-09-19 23:06 ==
LOC: JP.ED 20:18
DX: T67.5XXA Heat exhaustion, unspecified, initial encounter (principal); N28.9 Disorder of kidney and ureter, unspecified; I10 Essential (primary) hypertension; I25.2 Old myocardial infarction; E11.21 Type 2 diabetes mellitus with diabetic nephropathy; M10.9 Gout, unspecified; E11.40 Type 2 diabetes mellitus with diabetic neuropathy, unspecified; E66.9 Obesity, unspecified; Z87.891 Personal history of nicotine dependence; Z68.42 Body mass index [BMI] 45.0-49.9, adult; Z79.82 Long term (current) use of aspirin; Z79.84 Long term (current) use of oral hypoglycemic drugs; Z79.899 Other long term (current) drug therapy
CPT/HCPCS: 36415; 71045; 80053; 82550; 82962; 83605; 84145; 85025; 86140; 87040; 96361; 96374; 99285; A9270; J2765; J7030; 87077

== ENCOUNTER 2019-12-15 09:44 | Inpatient (IN) | payer MEDICAID ==
--- NOTE | 2019-12-15 10:03 | EDM.PDOC ---
ED HPI GENERAL MEDICAL PROBLEM - General Chief Complaint: Gastrointestinal Problem Stated Complaint: Heart issues Time Seen by Provider: 12/15/19 10:03 Source of Information: Reports: Patient History Limitations: Reports: No Limitations - History of Present Illness INITIAL COMMENTS - FREE TEXT/NARRATIVE: 54 years old male patient presented to the ER with a chief complaint of pain and redness of his right lower extremity. Progressively getting worse for the last 2 days. Subjective fever and chills. Previous history of cellulitis in the same leg 2 month ago. Patient stated his heart was pounding last night. And he vomited 4 times. Denies any chest pain. Denies any cough. Denies any shortness breath. Denies any abdominal pain diarrhea or constipation. Denies any urinary symptom. History of cardiac bypass on August 2019 at [facility]. Back Pain Score (Numeric/FACES): 1 - Related Data Allergies Allergy/AdvReac Type Severity Reaction Status Date / Time No Known Allergies Allergy Verified 09/19/19 20:32 Home Meds: Home Meds Gabapentin [Neurontin] 600 mg PO BEDTIME 10/01/14 [History] metFORMIN HCl [Metformin HCl] 1,000 mg PO BIDAC 11/19/16 [History] Ibuprofen 400 - 600 mg PO BEDTIME 09/07/19 [History] Metoprolol Succinate [Toprol XL] 25 mg PO BEDTIME 09/07/19 [History] Metoprolol Succinate [Toprol XL] 50 mg PO QAM 09/07/19 [History] atorvaSTATin [Lipitor] 40 mg PO BEDTIME 09/07/19 [History] Amiodarone [Cordarone] 200 mg PO DAILY 09/19/19 [History] Ascorbic Acid [C-500] 500 mg PO DAILY 09/19/19 [History] Aspirin 325 mg PO DAILY 09/19/19 [History] Docusate Sodium 250 mg PO ASDIRECTED 09/19/19 [History] Furosemide [Lasix] 20 mg PO DAILY 09/19/19 [History] Hydrocodone/Acetaminophen [Hydrocodon-Acetaminophn 10-325] 1 tab PO Q4H PRN 09/19/19 [History] Potassium Chloride [Klor-Con 8] 16 meq PO DAILY 09/19/19 [History] Insulin Glargine,Hum.Rec.Anlog [Lantus Solostar] 60 units SQ BEDTIME 12/15/19 [History] Insulin Lispro [HumaLOG] 25 units SQ TIDAC 12/15/19 [History] Past Medical History HEENT History: Reports: Impaired Vision Cardiovascular History: Reports: Arrhythmia, Bypass, Hypertension, MS, SOB on Exertion Respiratory History: Reports: Pneumonia, Recurrent Genitourinary History: Reports: Diabetic Nephropathy, Renal Calculus, UTI, Recurrent Musculoskeletal History: Reports: Gout, Other (See Below) Other Musculoskeletal History: neuropathy Neurological History: Reports: Neuropathy, Diabetic, Vertigo Psychiatric History: Reports: ADHD Endocrine/Metabolic History: Reports: Diabetes, Type II, Obesity/BMI 30+ Dermatologic History: Reports: Eczema - Infectious Disease History Infectious Disease History: Reports: Chicken Pox, Measles, Mumps - Past Surgical History Head Surgeries/Procedures: Reports: None HEENT Surgical History: Reports: Tonsillectomy Cardiovascular Surgical History: Reports: Coronary Artery Bypass Male Surgical History: Reports: Other (See Below) Other Male Surgeries/Procedures: abcess removed from back of scrotum Social & Family History - Family History Family Medical History: Noncontributory - Caffeine Use Caffeine Use: Reports: Coffee, Energy Drinks, Soda, Tea ED ROS GENERAL - Review of Systems Review Of Systems: Comprehensive ROS is negative, except as noted in HPI. ED EXAM, GI/ABD - Physical Exam Exam: See Below Exam Limited By: No Limitations General Appearance: Alert, WD/WN, No Apparent Distress Head: Atraumatic, Normocephalic Neck: Normal Inspection, Supple, Non-Tender, Full Range of Motion Respiratory/Chest: No Respiratory Distress, Lungs Clear, Normal Breath Sounds, No Accessory Muscle Use, Chest Non-Tender Cardiovascular: Normal Peripheral Pulses, Regular Rate, Rhythm, No Edema, No Gallop, No JVD, No Murmur, No Rub GI/Abdominal Exam: Normal Bowel Sounds, Soft, Non-Tender, No Organomegaly, No Distention, No Abnormal Bruit, No Mass, Pelvis Stable Extremities: Increased Warmth, Redness, Other Neurological: Alert, Oriented, CN II-XII Intact, Normal Cognition, Normal Gait, Normal Reflexes, No Motor/Sensory Deficits Course - Vital Signs Last Recorded V/S: Last Vital Signs Temp 37.8 C 12/15/19 18:00 Pulse 106 H 12/15/19 14:04 Resp 24 H 12/15/19 18:00 BP 158/69 H 12/15/19 18:00 Pulse Ox 94 L 12/15/19 18:00 - Orders/Labs/Meds Orders: Active Orders 24 hr Category Date Time Status CULTURE BLOOD [BC] Urgent Lab 12/15/19 10:20 Received CULTURE BLOOD [BC] Urgent Lab 12/15/19 10:27 Received Blood Culture x2 Reflex Set [OM.PC] Urgent Oth 12/15/19 10:09 Ordered EKG 12 Lead [EK] Stat Ther 12/15/19 10:13 Stop Req Medication Orders Acetaminophen (Tylenol) 650 mg PO Q4H PRN PRN Reason: Pain (Mild 1-3)/fever Last Admin: 12/15/19 14:31 Dose: 650 mg Documented by: DYLAN Hydrocodone Bitart/Acetaminophen (Cameron 325-10 Mg) 1 tab PO Q4H PRN PRN Reason: Pain (moderate 4-6) Albuterol (Proventil Neb Soln) 2.5 mg NEB Q4H PRN PRN Reason: Shortness Of Breath/wheezing Amiodarone HCl (Cordarone) 200 mg PO DAILY [facility] Aspirin (Ecotrin) 325 mg PO DAILY BUDDY Atorvastatin Calcium (Lipitor) 40 mg PO BEDTIME BUDDY Enoxaparin Sodium (Lovenox) 40 mg SUBCUT DAILY B[facility]DY Gabapentin (Neurontin) 600 mg PO BEDTIME BUDDY Vancomycin HCl 2 gm/ Sodium (Chloride) 500 mls @ 250 mls/hr IV Q12H BUDDY Ceftriaxone Sodium 1 gm/ (Sodium Chloride) 50 mls @ 100 mls/hr IV Q12H BUDDY Sodium Chloride (Normal Saline) 1,000 mls @ 100 mls/hr IV ASDIRECTED [facility] Last Admin: 12/15/19 14:23 Dose: 100 mls/hr Documented by: DYLAN Insulin Glargine (Lantus Solostar) 60 units SUBCUT BEDTIME [facility] Insulin Human Lispro (Humalog) 0 unit SUBCUT QIDACANDBED [facility]; Protocol Last Admin: 12/15/19 16:16 Dose: 2 units Documented by: DYLAN Cosigned by: NAM Insulin Human Lispro (Humalog) 25 unit SUBCUT TIDAC [facility] Last Admin: 12/15/19 16:20 Dose: 25 units Documented by: DYLAN Cosigned by: NAM Lactobacillus Rhamnosus (Culturelle) 1 cap PO BID [facility] Lorazepam (Ativan) 0.5 mg IVPUSH Q4H PRN PRN Reason: Nausea/Vomiting Magnesium Hydroxide (Milk Of Magnesia) 30 ml PO Q12H PRN PRN Reason: Constipation Melatonin (Melatonin) 9 mg PO BEDTIME PRN PRN Reason: Sleep Metformin HCl (Glucophage) 1,000 mg PO BIDAC [facility] Last Admin: 12/15/19 16:16 Dose: 1,000 mg Documented by: DYLAN Metoprolol Succinate (Toprol Xl) 25 mg PO BEDTIME B[facility]DY Metoprolol Succinate (Toprol Xl) 50 mg PO QAM B[facility]DY Ondansetron HCl (Zofran) 4 mg IV Q6H PRN PRN Reason: Nausea/Vomiting Ondansetron HCl (Zofran Odt) 4 mg PO Q6H PRN PRN Reason: Nausea able to take PO Senna/Docusate Sodium (Senna Plus) 1 tab PO BID PRN PRN Reason: Constipation Labs: Laboratory Tests 12/15/19 12/15/19 12/15/19 Range/Units 10:20 10:20 10:20 WBC 13.5 H (4.5-11.0) K/uL RBC 4.43 (4.30-5.90) M/uL Hgb 12.8 (12.0-15.0) g/dL Hct 39.2 L (40.0-54.0) % MCV 89 (80-98) fL MCH 29 (27-31) pg MCHC 33 (32-36) % Plt Count 272 (150-400) K/uL Neut % (Auto) 91 H (36-66) % Lymph % (Auto) 4 L (24-44) % [place] % (Auto) 4 (2-6) % Eos % (Auto) 0 L (2-4) % Baso % (Auto) 0 (0-1) % PT 10.6 (9.5-12.0) sec INR 0.97 (0.80-1.20) Sodium 139 L (140-148) mmol/L Potassium 4.3 (3.6-5.2) mmol/L Chloride 102 (100-108) mmol/L Carbon Dioxide 29 (21-32) mmol/L Anion Gap 12.3 (5.0-14.0) mmol/L BUN 11 (7-18) mg/dL Creatinine 0.9 (0.8-1.3) mg/dL Est Cr Clr Drug Dosing 93.83 mL/min Estimated GFR (MDRD) > 60 (>60) Glucose 175 H (74-106) mg/dL Lactic Acid (0.4-2.0) mmol/L Calcium 9.3 (8.5-10.1) mg/dL Total Bilirubin 0.8 (0.2-1.0) mg/dL AST 21 (15-37) U/L ALT 21 (12-78) U/L Alkaline Phosphatase 72 (46-116) U/L Troponin I (0.000-0.056) ng/mL C-Reactive Protein (0.0-0.3) mg/dL NT-Pro-B Natriuret Pep (5-125) pg/mL Total Protein 7.7 (6.4-8.2) g/dL Albumin 3.2 L (3.4-5.0) g/dL Globulin 4.5 H (2.3-3.5) g/dL Albumin/Globulin Ratio 0.7 L (1.2-2.2) 12/15/19 12/15/19 Range/Units 10:20 10:20 WBC (4.5-11.0) K/uL RBC (4.30-5.90) M/uL Hgb (12.0-15.0) g/dL Hct (40.0-54.0) % MCV (80-98) fL MCH (27-31) pg MCHC (32-36) % Plt Count (150-400) K/uL Neut % (Auto) (36-66) % Lymph % (Auto) (24-44) % [place] % (Auto) (2-6) % Eos % (Auto) (2-4) % Baso % (Auto) (0-1) % PT (9.5-12.0) sec INR (0.80-1.20) Sodium (140-148) mmol/L Potassium (3.6-5.2) mmol/L Chloride (100-108) mmol/L Carbon Dioxide (21-32) mmol/L Anion Gap (5.0-14.0) mmol/L BUN (7-18) mg/dL Creatinine (0.8-1.3) mg/dL Est Cr Clr Drug Dosing mL/min Estimated GFR (MDRD) (>60) Glucose (74-106) mg/dL Lactic Acid 1.1 (0.4-2.0) mmol/L Calcium (8.5-10.1) mg/dL Total Bilirubin (0.2-1.0) mg/dL AST (15-37) U/L ALT (12-78) U/L Alkaline Phosphatase (46-116) U/L Troponin I 0.033 (0.000-0.056) ng/mL C-Reactive Protein 5.11 H (0.0-0.3) mg/dL NT-Pro-B Natriuret Pep 1074 H (5-125) pg/mL Total Protein (6.4-8.2) g/dL Albumin (3.4-5.0) g/dL Globulin (2.3-3.5) g/dL Albumin/Globulin Ratio (1.2-2.2) Meds: Medications Generic Name Dose Route Start Last Admin Trade Name Freq PRN Reason Stop Dose Admin Acetaminophen 650 mg 12/15/19 14:02 12/15/19 14:31 Tylenol PO 650 mg Q4H PRN Administration Pain (Mild 1-3)/fever Hydrocodone Bitart/Acetaminophen 1 tab 12/15/19 14:02 Cameron 325-10 Mg PO Q4H PRN Pain (moderate 4-6) Albuterol 2.5 mg 12/15/19 14:02 Proventil Neb Soln NEB Q4H PRN Shortness Of Breath/wheezing Amiodarone HCl 200 mg 12/16/19 09:00 Cordarone PO DAILY [facility] Aspirin 325 mg 12/16/19 09:00 Ecotrin PO DAILY [facility] Atorvastatin Calcium 40 mg 12/15/19 21:00 Lipitor PO BEDTIME BUDDY Enoxaparin Sodium 40 mg 12/16/19 09:00 Lovenox SUBCUT DAILY [facility] Gabapentin 600 mg 12/15/19 21:00 Neurontin PO BEDTIME [facility] Vancomycin HCl 2 gm/ Sodium 500 mls @ 250 mls/hr 12/16/19 02:00 Chloride IV Q12H BUDDY Ceftriaxone Sodium 1 gm/ 50 mls @ 100 mls/hr 12/16/19 01:00 Sodium Chloride IV Q12H BUDDY Sodium Chloride 1,000 mls @ 100 mls/hr 12/15/19 14:02 12/15/19 14:23 Normal Saline IV 100 mls/hr ASDIRECTED BUDDY Administration Insulin Glargine 60 units 12/15/19 21:00 Lantus Solostar SUBCUT BEDTIME [facility] Insulin Human Lispro 0 unit 12/15/19 17:00 12/15/19 16:16 Humalog SUBCUT 2 units QIDACANDBED BUDDY Administration Protocol Insulin Human Lispro 25 unit 12/15/19 16:16 12/15/19 16:20 Humalog SUBCUT 25 units TIDAC BUDDY Administration Lactobacillus Rhamnosus 1 cap 12/15/19 21:00 Culturelle PO BID BUDDY Lorazepam 0.5 mg 12/15/19 14:02 Ativan IVPUSH Q4H PRN Nausea/Vomiting Magnesium Hydroxide 30 ml 12/15/19 14:02 Milk Of Magnesia PO Q12H PRN Constipation Melatonin 9 mg 12/15/19 14:02 Melatonin PO BEDTIME PRN Sleep Metformin HCl 1,000 mg 12/15/19 16:30 12/15/19 16:16 Glucophage PO 1,000 mg BIDAC BUDDY Administration Metoprolol Succinate 25 mg 12/15/19 21:00 Toprol Xl PO BEDTIME BUDDY Metoprolol Succinate 50 mg 12/16/19 09:00 Toprol Xl PO QAM BUDDY Ondansetron HCl 4 mg 12/15/19 14:02 Zofran IV Q6H PRN Nausea/Vomiting Ondansetron HCl 4 mg 12/15/19 14:02 Zofran Odt PO Q6H PRN Nausea able to take PO Senna/Docusate Sodium 1 tab 12/15/19 14:02 Senna Plus PO BID PRN Constipation Discontinued Medications Generic Name Dose Route Start Last Admin Trade Name Freq PRN Reason Stop Dose Admin Sodium Chloride 1,000 mls @ 500 mls/hr 12/15/19 10:09 12/15/19 11:22 Normal Saline IV 12/15/19 12:08 500 mls/hr .BOLUS STA Administration Ceftriaxone Sodium 1 gm/ 50 mls @ 100 mls/hr 12/15/19 12:07 12/15/19 13:39 Sodium Chloride IV 12/15/19 12:36 100 mls/hr ONETIME ONE Administration Vancomycin HCl 2 gm/ Sodium 500 mls @ 250 mls/hr 12/15/19 14:00 12/15/19 14 :23 Chloride IV 12/15/19 15:59 250 mls/hr Q12H BUDDY Administration Insulin Human Lispro 20 unit 12/15/19 16:00 12/15/19 16:21 Humalog SUBCUT Not Given TIDAC BUDDY - Radiology Interpretation Free Text/Narrative:: Patient was seen and examined shortly after arrival. Stable. Started on IV fluids. Given 1 L normal saline bolus, lab and imaging reviewed with the patient. Elevated white count. Lactic acid is normal. No sign of severe sepsis or septic shock. Given 1 g IV Rocephin. Case was discussed with Dr. Melton hospitalist electronic equipment maint tech and he accepted admission for further management. Patient agrees with the plan. Stable for admission. Departure - Departure Time of Disposition: 12:02 Disposition: Admitted As Inpatient 66 Condition: Fair Clinical Impression: Cellulitis, Vomiting, Palpitation, Vomiting - Discharge Information Sepsis Event Note (ED) - Focused Exam Vital Signs: Vital Signs Temp Pulse Resp BP Pulse Ox 12/15/19 13:13 108 H 173/96 H 12/15/19 11:20 105 H 164/81 H 90 L 12/15/19 10:53 110 H 24 H 190/90 H 86 L 12/15/19 10:23 110 H 15 190/95 H 88 L 12/15/19 10:16 37.6 C 108 H 24 H 166/88 H 12/15/19 10:01 37.6 C 123 H 24 H 166/88 H 93 L - My Orders Last 24 Hours: My Active Orders 12/15/19 10:09 Blood Culture x2 Reflex Set [OM.PC] Urgent 12/15/19 10:13 EKG 12 Lead [EK] Stat 12/15/19 10:20 CULTURE BLOOD [BC] Urgent 12/15/19 10:27 CULTURE BLOOD [BC] Urgent - Assessment/Plan Last 24 Hours: My Active Orders 12/15/19 10:09 Blood Culture x2 Reflex Set [OM.PC] Urgent 12/15/19 10:13 EKG 12 Lead [EK] Stat 12/15/19 10:20 CULTURE BLOOD [BC] Urgent 12/15/19 10:27 CULTURE BLOOD [BC] Urgent
[2019-12-15] MEDS ORDERED: Sodium Chloride 0.9% 1,000 ML IV STA (10:09)
--- NOTE | 2019-12-15 11:45 | CR ---
CHEST: 2 view CLINICAL HISTORY:Palpitations COMPARISON:09/19/2019 FINDINGS: Patient has had previous sternotomy. The heart size, pulmonary vascularity and hilar structures are normal. No infiltrate effusion or pneumothorax is seen. IMPRESSION: No acute cardiopulmonary process. Previous sternotomy
[2019-12-15] MEDS ORDERED: cefTRIAXone 1 GM in Sodium Chloride 0.9% 50 ML IV ONE (12:07)
[2019-12-15] MEDS ORDERED: Vancomycin 2 GM in Sodium Chloride 0.9% 500 ML IV SCH (14:00)
[2019-12-15] MEDS ORDERED: Ondansetron 4 MG/2 ML SDV IV PRN (14:02)
[2019-12-15] MEDS ORDERED: Acetaminophen/HYDROcodone 325-10 MG Tab PO PRN (14:02)
[2019-12-15] MEDS ORDERED: Melatonin 3 MG Tab PO PRN (14:02)
[2019-12-15] MEDS ORDERED: Ondansetron 4 MG Tab.DIS PO PRN (14:02)
[2019-12-15] MEDS ORDERED: LORazepam 2 MG/ML SDV IVPUSH PRN (14:02)
[2019-12-15] MEDS ORDERED: Albuterol 0.083% 2.5 MG/3 ML Neb Soln NEB PRN (14:02)
[2019-12-15] MEDS ORDERED: Magnesium Hydroxide 400 MG/5 ML Susp 30 ML Cup PO PRN (14:02)
--- NOTE | 2019-12-15 14:08 | CR ---
Toes Great Toe Rt T5 CLINICAL HISTORY: Ulcer FINDINGS: There is moderate soft tissue swelling in the first toe. There is some ulceration medially near the distal phalanx. There is a linear lucency through the lateral aspect of the base of the distal phalanx which is suspicious for fracture. No bony destruction is identified IMPRESSION: Soft tissue swelling with the medial distal ulcer Linear defect through the lateral base of the distal phalanx which may represent nondisplaced fracture.
[2019-12-15] MEDS: Sodium Chloride 0.9% 1,000 ML IV SCH (14:23)
[2019-12-15] MEDS: Acetaminophen 325 MG Tab PO PRN ×2 (14:31→20:10)
[2019-12-15] MEDS ORDERED: Insulin Lispro 100 Unit/ML 3 ML KwikPen SUBCUT SCH (16:00)
[2019-12-15] MEDS: Insulin Lispro 100 Unit/ML 3 ML KwikPen SUBCUT SCH ×3 (16:16→20:15)
[2019-12-15] MEDS: metFORMIN 500 MG Tab PO SCH (16:16)
--- NOTE | 2019-12-15 16:59 | PCM.HP.2 ---
H&P History of Present Illness - General Date of Service: 12/15/19 Admit Problem/Dx: Admission Diagnosis/Problem Admission Diagnosis/Problem Cellulitis of right lower extremity Source of Information: Patient, Provider History Limitations: Reports: No Limitations - History of Present Illness Initial Comments - Free Text/Narative: CC: I'm worried about my foot HPI: Yuri presents to the emergency room today with progressive redness and swelling involving his right great toe and right lower leg. He has had some associated nausea. The redness and swelling have progressed over the past several days with initially only the toe involved but now his entire lower leg below the knee. He has had subjective fevers at home as well as some chills but he has not measured any temperatures. His appetite and energy are decreased significantly from baseline. He has had nausea but no vomiting. He feels a little short of breath compared to baseline but has not had any chest pain. No change in bowel or bladder habits. He is worried that he has a recurrence of cellulitis stemming from the great toe ulcer and had a similar episode about 3 months ago. He has not had antibiotics since that time. No sick contacts that he is aware of. No injury to the toe that he is aware of. He does not have any pain because of severe neuropathy in his feet. Work-up in the emergency room revealed evidence for cellulitis involving the right great toe extending on the foot and up onto his lower extremity of the right. He has leukocytosis but no strong evidence to support sepsis. He did receive ceftriaxone in the emergency room and cultures have been obtained. He will be admitted for further management. Back Pain Score (Numeric/FACES): 1 - Related Data Allergies/Adverse Reactions: Allergies Allergy/AdvReac Type Severity Reaction Status Date / Time No Known Allergies Allergy Verified 09/19/19 20:32 Home Medications: Home Meds Gabapentin [Neurontin] 600 mg PO BEDTIME 10/01/14 [History] metFORMIN HCl [Metformin HCl] 1,000 mg PO BIDAC 11/19/16 [History] Ibuprofen 400 - 600 mg PO BEDTIME 09/07/19 [History] Metoprolol Succinate [Toprol XL] 25 mg PO BEDTIME 09/07/19 [History] Metoprolol Succinate [Toprol XL] 50 mg PO QAM 09/07/19 [History] atorvaSTATin [Lipitor] 40 mg PO BEDTIME 09/07/19 [History] Amiodarone [Cordarone] 200 mg PO DAILY 09/19/19 [History] Ascorbic Acid [C-500] 500 mg PO DAILY 09/19/19 [History] Aspirin 325 mg PO DAILY 09/19/19 [History] Docusate Sodium 250 mg PO ASDIRECTED 09/19/19 [History] Furosemide [Lasix] 20 mg PO DAILY 09/19/19 [History] Hydrocodone/Acetaminophen [Hydrocodon-Acetaminophn 10-325] 1 tab PO Q4H PRN 09/19/19 [History] Potassium Chloride [Klor-Con 8] 16 meq PO DAILY 09/19/19 [History] Insulin Glargine,Hum.Rec.Anlog [Lantus Solostar] 60 units SQ BEDTIME 12/15/19 [History] Insulin Lispro [HumaLOG] 25 units SQ TIDAC 12/15/19 [History] Past Medical History HEENT History: Reports: Impaired Vision Cardiovascular History: Reports: Arrhythmia, Bypass, Hypertension, [place], SOB on Exertion Respiratory History: Reports: Pneumonia, Recurrent Genitourinary History: Reports: Diabetic Nephropathy, Renal Calculus, UTI, Recurrent Musculoskeletal History: Reports: Gout, Other (See Below) Other Musculoskeletal History: neuropathy Neurological History: Reports: Neuropathy, Diabetic, Vertigo Psychiatric History: Reports: ADHD Endocrine/Metabolic History: Reports: Diabetes, Type II, Obesity/BMI 30+ Dermatologic History: Reports: Cellulitis, Eczema - Infectious Disease History Infectious Disease History: Reports: Chicken Pox, Measles, Mumps - Past Surgical History Head Surgeries/Procedures: Reports: None HEENT Surgical History: Reports: Tonsillectomy Cardiovascular Surgical History: Reports: Coronary Artery Bypass Male Surgical History: Reports: Other (See Below) Other Male Surgeries/Procedures: abcess removed from back of scrotum Social & Family History - Family History Family Medical History: Noncontributory - Tobacco Use Smoking Status *Q: Never Smoker - Caffeine Use Caffeine Use: Reports: Coffee, Energy Drinks, Soda, Tea - Alcohol Use Days Per Week of Alcohol Use: 0 - Recreational Drug Use Recreational Drug Use: No H&P Review of Systems - Review of Systems: Review Of Systems: See Below Free Text/Narrative: A complete 12 point review of systems was obtained. Pertinent positives and negatives are noted in the history of present illness. All other systems were reviewed and were negative except as noted. Exam - Exam Exam: See Below - Vital Signs Vital Signs: Last Vital Signs Temp 38.8 C H 12/15/19 15:01 Pulse 106 H 12/15/19 14:04 Resp 19 12/15/19 14:04 BP 176/97 H 12/15/19 14:04 Pulse Ox 92 L 12/15/19 14:04 Weight: 150.6 kg - Exam Quality Assessment: No: Supplemental Oxygen General: Alert, Oriented, Cooperative. No: Mild Distress HEENT: Conjunctiva Clear. No: Mucosa Moist & Shiro (Dry), Scleral Icterus Neck: Supple, Trachea Midline Lungs: Clear to Auscultation, Normal Respiratory Effort Cardiovascular: Regular Rate, Regular Rhythm GI/Abdominal Exam: Normal Bowel Sounds, Soft, Non-Tender, No Distention Back Exam: Normal Inspection, Full Range of Motion Extremities: Pedal Edema (Mild swelling of the right leg below the knee), Increased Warmth (Right leg below the knee involving the lower extremity as well as the top of the foot and the right great toe). No: Joint Swelling Skin: Warm, Dry, Rash (Erythema involving the entire right great toe extending onto the right foot and more impressive along of the entire right lower extremity below the knee), Wound (Callus with central ulceration on the medial and plantar surface of the right great toe. No drainage.). No: [place] Neuro Extensive - Mental Status: Alert, Oriented x3, Nl Response to Commands Neuro Extensive - Motor, Sensory, Reflexes: No: Dysarthria, Abnormal Motor, Tremor Psychiatric: Alert, Normal Affect - Patient Data Lab Results Last 24 hrs: Laboratory Results - last 24 hr 12/15/19 12/15/19 12/15/19 Range/Units 10:20 10:20 10:20 WBC 13.5 H (4.5-11.0) K/uL RBC 4.43 (4.30-5.90) M/uL Hgb 12.8 (12.0-15.0) g/dL Hct 39.2 L (40.0-54.0) % MCV 89 (80-98) fL MCH 29 (27-31) pg MCHC 33 (32-36) % Plt Count 272 (150-400) K/uL Neut % (Auto) 91 H (36-66) % Lymph % (Auto) 4 L (24-44) % [place] % (Auto) 4 (2-6) % Eos % (Auto) 0 L (2-4) % Baso % (Auto) 0 (0-1) % PT 10.6 (9.5-12.0) sec INR 0.97 (0.80-1.20) Sodium 139 L (140-148) mmol/L Potassium 4.3 (3.6-5.2) mmol/L Chloride 102 (100-108) mmol/L Carbon Dioxide 29 (21-32) mmol/L Anion Gap 12.3 (5.0-14.0) mmol/L BUN 11 (7-18) mg/dL Creatinine 0.9 (0.8-1.3) mg/dL Est Cr Clr Drug Dosing 93.83 mL/min Estimated GFR (MDRD) > 60 (>60) Glucose 175 H (74-106) mg/dL Lactic Acid (0.4-2.0) mmol/L Calcium 9.3 (8.5-10.1) mg/dL Total Bilirubin 0.8 (0.2-1.0) mg/dL AST 21 (15-37) U/L ALT 21 (12-78) U/L Alkaline Phosphatase 72 (46-116) U/L Troponin I (0.000-0.056) ng/mL C-Reactive Protein (0.0-0.3) mg/dL NT-Pro-B Natriuret Pep (5-125) pg/mL Total Protein 7.7 (6.4-8.2) g/dL Albumin 3.2 L (3.4-5.0) g/dL Globulin 4.5 H (2.3-3.5) g/dL Albumin/Globulin Ratio 0.7 L (1.2-2.2) 12/15/19 12/15/19 Range/Units 10:20 10:20 WBC (4.5-11.0) K/uL RBC (4.30-5.90) M/uL Hgb (12.0-15.0) g/dL Hct (40.0-54.0) % MCV (80-98) fL MCH (27-31) pg MCHC (32-36) % Plt Count (150-400) K/uL Neut % (Auto) (36-66) % Lymph % (Auto) (24-44) % [place] % (Auto) (2-6) % Eos % (Auto) (2-4) % Baso % (Auto) (0-1) % PT (9.5-12.0) sec INR (0.80-1.20) Sodium (140-148) mmol/L Potassium (3.6-5.2) mmol/L Chloride (100-108) mmol/L Carbon Dioxide (21-32) mmol/L Anion Gap (5.0-14.0) mmol/L BUN (7-18) mg/dL Creatinine (0.8-1.3) mg/dL Est Cr Clr Drug Dosing mL/min Estimated GFR (MDRD) (>60) Glucose (74-106) mg/dL Lactic Acid 1.1 (0.4-2.0) mmol/L Calcium (8.5-10.1) mg/dL Total Bilirubin (0.2-1.0) mg/dL AST (15-37) U/L ALT (12-78) U/L Alkaline Phosphatase (46-116) U/L Troponin I 0.033 (0.000-0.056) ng/mL C-Reactive Protein 5.11 H (0.0-0.3) mg/dL NT-Pro-B Natriuret Pep 1074 H (5-125) pg/mL Total Protein (6.4-8.2) g/dL Albumin (3.4-5.0) g/dL Globulin (2.3-3.5) g/dL Albumin/Globulin Ratio (1.2-2.2) Result Diagrams: 12/15/19 10:20 12/15/19 10:20 Imaging Impressions Last 24 hrs: Chest x-ray-image personally reviewed-lungs are clear with no mass, infiltrate or effusion Great toe [id number] personally reviewed-no obvious evidence for bony destruction. Possible fracture of the distal phalanx of the great toe with linear defect/lucency noted. Sepsis Event Note - Evaluation Sepsis Screening Result: Sepsis Risk - Focused Exam Vital Signs: Vital Signs Temp Temp Pulse Resp BP Pulse Ox 12/15/19 15:01 38.8 C H 12/15/19 14:31 38.5 C H 12/15/19 14:04 38.5 C H 106 H 19 176/97 H 92 L 12/15/19 13:13 108 H 173/96 H 12/15/19 11:20 105 H 164/81 H 90 L 12/15/19 10:53 110 H 24 H 190/90 H 86 L 12/15/19 10:23 110 H 15 190/95 H 88 L 12/15/19 10:16 37.6 C 108 H 24 H 166/88 H 12/15/19 10:01 37.6 C 123 H 24 H 166/88 H 93 L *Q Meaningful Use (ADM) - VTE Risk Assess *Q Each Risk Factor Represents 1 Point: Age 41 - 59 years, Obesity ( BMI > 25 kg/m2) Total Score 1 Point Risk Factors: 2 Each Risk Factor Represents 2 Points: None Total Score 2 Point Risk Factors: 0 Each Risk Factor Represents 3 Points: None Total Score 3 Point Risk Factors: 0 Each Risk Factor Represents 5 Points: None Total Score 5 Point Risk Factors: 0 Venous Thromboembolism Risk Factor Score *Q: 2 - Problem List (1) Cellulitis of left lower extremity SNOMED Code(s): 932898765 ICD Code: L03.116 - CELLULITIS OF LEFT LOWER LIMB Status: Acute Current Visit: Yes (2) Diabetic foot ulcer SNOMED Code(s): 845435600 ICD Code: E11.621 - TYPE 2 DIABETES MELLITUS WITH FOOT ULCER; L97.509 - NON- PRESSURE CHRONIC ULCER OTH PRT UNSP FOOT W UNSP SEVERITY Status: Acute Current Visit: Yes Qualifiers: Diabetic foot ulcer location: toe Diabetes mellitus type: type 2 Laterality: right Non-pressure ulcer stage: limited to breakdown of skin Qualified Code(s): E11.621 - Type 2 diabetes mellitus with foot ulcer; L97.511 - Non-pressure chronic ulcer of other part of right foot limited to breakdown of skin (3) Diabetes mellitus SNOMED Code(s): 12298994 ICD Code: E11.9 - TYPE 2 DIABETES MELLITUS WITHOUT COMPLICATIONS Status: Chronic Current Visit: No Qualifiers: Diabetes mellitus type: type 2 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 transplanted heart: [place] heart Associated angina: without angina Qualified Code(s): I25.10 - Atherosclerotic heart disease of [place] coronary artery without angina pectoris (5) Morbid obesity with BMI of 45.0-49.9, adult SNOMED Code(s): 777068852, 96528947482575 ICD Code: E66.01 - MORBID (SEVERE) OBESITY DUE TO EXCESS CALORIES; Z68.42 - BODY MASS INDEX (BMI) 45.0-49.9, ADULT Status: Chronic Current Visit: No Problem List Initiated/Reviewed/Updated: Yes Orders Last 24hrs: Active Orders 24 hr Category Date Time Status Patient Status [ADT] Routine ADT 12/15/19 14:02 Active Cardiac Monitoring [RC] CONTINUOUS Care 12/15/19 14:02 Active Communication Order [RC] PRN Care 12/15/19 14:02 Active Communication Order [RC] PRN Care 12/15/19 14:02 Active Diabetes Education [RC] Click to Edit Care 12/15/19 14:02 Active Intake and Output [RC] QSHIFT Care 12/15/19 14:02 Active Notify Provider Vital Signs [RC] ASDIRECTED Care 12/15/19 14:02 Active Notify Provider [RC] PRN Care 12/15/19 14:02 Active Oxygen Therapy [RC] PRN Care 12/15/19 14:02 Active RT Aerosol Therapy [RC] ASDIRECTED Care 12/15/19 14:02 Active Up With Assistance [RC] ASDIRECTED Care 12/15/19 14:02 Active VTE/DVT Education [RC] Per Unit Routine Care 12/15/19 14:02 Active Vital Signs [RC] Q4H Care 12/15/19 14:02 Active Consistent Carbohydrate Diet [DIET] Diet 12/15/19 Lunch Active BASIC METABOLIC PANEL,BMP [CHEM] AM Lab 12/16/19 05:11 Ordered CBC W/O DIFF,HEMOGRAM [HEME] AM Lab 12/16/19 05:11 Ordered CULTURE BLOOD [BC] Urgent Lab 12/15/19 10:20 Received CULTURE BLOOD [BC] Urgent Lab 12/15/19 10:27 Received GLUCOSE POC LAB TO COLLECT JPM [POC] QIDACANDBED Lab 12/16/19 07:30 Ordered GLUCOSE POC LAB TO COLLECT JPM [POC] QIDACANDBED Lab 12/16/19 11:30 Ordered GLUCOSE POC LAB TO COLLECT JPM [POC] QIDACANDBED Lab 12/16/19 16:30 Ordered GLUCOSE POC LAB TO COLLECT JPM [POC] QIDACANDBED Lab 12/16/19 21:00 Ordered GLUCOSE POC LAB TO COLLECT JPM [POC] QIDACANDBED Lab 12/17/19 07:30 Ordered GLUCOSE POC LAB TO COLLECT JPM [POC] QIDACANDBED Lab 12/17/19 11:30 Ordered GLUCOSE POC LAB TO COLLECT JPM [POC] QIDACANDBED Lab 12/17/19 16:30 Ordered GLUCOSE POC LAB TO COLLECT JPM [POC] QIDACANDBED Lab 12/17/19 21:00 Ordered GLUCOSE POC LAB TO COLLECT JPM [POC] QIDACANDBED Lab 12/18/19 07:30 Ordered GLUCOSE POC LAB TO COLLECT JPM [POC] QIDACANDBED Lab 12/18/19 11:30 Ordered GLUCOSE POC LAB TO COLLECT JPM [POC] QIDACANDBED Lab 12/18/19 16:30 Ordered GLUCOSE POC LAB TO COLLECT JPM [POC] QIDACANDBED Lab 12/18/19 21:00 Ordered GLUCOSE POC LAB TO COLLECT JPM [POC] QIDACANDBED Lab 12/19/19 07:30 Ordered GLUCOSE POC LAB TO COLLECT JPM [POC] QIDACANDBED Lab 12/19/19 11:30 Ordered GLUCOSE POC LAB TO COLLECT JPM [POC] QIDACANDBED Lab 12/19/19 16:30 Ordered GLUCOSE POC LAB TO COLLECT JPM [POC] QIDACANDBED Lab 12/19/19 21:00 Ordered GLUCOSE POC LAB TO COLLECT JPM [POC] QIDACANDBED Lab 12/20/19 07:30 Ordered GLUCOSE POC LAB TO COLLECT JPM [POC] QIDACANDBED Lab 12/20/19 11:30 Ordered GLUCOSE POC LAB TO COLLECT JPM [POC] QIDACANDBED Lab 12/20/19 16:30 Ordered GLUCOSE POC LAB TO COLLECT JPM [POC] QIDACANDBED Lab 12/20/19 21:00 Ordered GLUCOSE POC LAB TO COLLECT JPM [POC] QIDACANDBED Lab 12/21/19 07:30 Ordered Acetaminophen [TylenoL] Med 12/15/19 14:02 Active 650 mg PO Q4H PRN Acetaminophen/HYDROcodone [[place] 325-10 MG] Med 12/15/19 14:02 Active 1 tab PO Q4H PRN Albuterol [Proventil Neb Soln] Med 12/15/19 14:02 Active 2.5 mg NEB Q4H PRN Amiodarone [Cordarone] Med 12/16/19 09:00 Active 200 mg PO DAILY Aspirin [Ecotrin] Med 12/16/19 09:00 Active 325 mg PO DAILY Docusate Sodium/Sennosides [Senna Plus] Med 12/15/19 14:02 Active 1 tab PO BID PRN Enoxaparin [Lovenox] Med 12/16/19 09:00 Active 40 mg SUBCUT DAILY Gabapentin [Neurontin] Med 12/15/19 21:00 Active 600 mg PO BEDTIME Insulin Glarg,Human.Rec.Analog [LantUS Solostar] Med 12/15/19 21:00 Active 60 units SUBCUT BEDTIME Insulin Lispro [HumaLOG] Med 12/15/19 16:16 Active 25 unit SUBCUT TIDAC Insulin Lispro [HumaLOG] Med 12/15/19 17:00 Active See Protocol SUBCUT QIDACANDBED LORazepam [Ativan] Med 12/15/19 14:02 Active 0.5 mg IVPUSH Q4H PRN Lactobacillus Rhamnosus GG [Culturelle] Med 12/15/19 21:00 Active 1 cap PO BID Magnesium Hydroxide [Milk of Magnesia] Med 12/15/19 14:02 Active 30 ml PO Q12H PRN Melatonin Med 12/15/19 14:02 Active 9 mg PO BEDTIME PRN Metoprolol Succinate [Toprol XL] Med 12/15/19 21:00 Active 25 mg PO BEDTIME Metoprolol Succinate [Toprol XL] Med 12/16/19 09:00 Active 50 mg PO QAM Ondansetron [Zofran ODT] Med 12/15/19 14:02 Active 4 mg PO Q6H PRN Ondansetron [Zofran] Med 12/15/19 14:02 Active 4 mg IV Q6H PRN Sodium Chloride 0.9% [Normal Saline] 1,000 ml Med 12/15/19 14:02 Active IV ASDIRECTED Vancomycin 2 gm Med 12/16/19 02:00 Active Sodium Chloride 0.9% [Normal Saline] 500 ml IV Q12H atorvaSTATin [Lipitor] Med 12/15/19 21:00 Active 40 mg PO BEDTIME cefTRIAXone [Rocephin] 1 gm Med 12/16/19 01:00 Active Sodium Chloride 0.9% [Normal Saline] 50 ml IV Q12H metFORMIN [Glucophage] Med 12/15/19 16:30 Active 1,000 mg PO BIDAC Blood Culture x2 Reflex Set [OM.PC] Urgent Oth 12/15/19 10:09 Ordered Resuscitation Status Routine Resus Stat 12/15/19 13:25 Ordered EKG 12 Lead [EK] Stat Ther 12/15/19 10:13 Stop Req Medication Orders Acetaminophen (Tylenol) 650 mg PO Q4H PRN PRN Reason: Pain (Mild 1-3)/fever Last Admin: 12/15/19 14:31 Dose: 650 mg Documented by: DYLAN Hydrocodone Bitart/Acetaminophen ([place] 325-10 Mg) 1 tab PO Q4H PRN PRN Reason: Pain (moderate 4-6) Albuterol (Proventil Neb Soln) 2.5 mg NEB Q4H PRN PRN Reason: Shortness Of Breath/wheezing Amiodarone HCl (Cordarone) 200 mg PO DAILY [facility] Aspirin (Ecotrin) 325 mg PO DAILY [facility] Atorvastatin Calcium (Lipitor) 40 mg PO BEDTIME [facility] Enoxaparin Sodium (Lovenox) 40 mg SUBCUT DAILY [facility] Gabapentin (Neurontin) 600 mg PO BEDTIME [facility] Vancomycin HCl 2 gm/ Sodium (Chloride) 500 mls @ 250 mls/hr IV Q12H [facility] Ceftriaxone Sodium 1 gm/ (Sodium Chloride) 50 mls @ 100 mls/hr IV Q12H [facility] Sodium Chloride (Normal Saline) 1,000 mls @ 100 mls/hr IV ASDIRECTED [facility] Last Admin: 12/15/19 14:23 Dose: 100 mls/hr Documented by: DYLAN Insulin Glargine (Lantus Solostar) 60 units SUBCUT BEDTIME [facility] Insulin Human Lispro (Humalog) 0 unit SUBCUT QIDACANDBED [facility]; Protocol Last Admin: 12/15/19 16:16 Dose: 2 units Documented by: DYLAN Cosigned by: NAM Insulin Human Lispro (Humalog) 25 unit SUBCUT TIDAC [facility] Last Admin: 12/15/19 16:20 Dose: 25 units Documented by: DYLAN Cosigned by: NAM Lactobacillus Rhamnosus (Culturelle) 1 cap PO BID [facility] Lorazepam (Ativan) 0.5 mg IVPUSH Q4H PRN PRN Reason: Nausea/Vomiting Magnesium Hydroxide (Milk Of Magnesia) 30 ml PO Q12H PRN PRN Reason: Constipation Melatonin (Melatonin) 9 mg PO BEDTIME PRN PRN Reason: Sleep Metformin HCl (Glucophage) 1,000 mg PO BIDAC [facility] Last Admin: 12/15/19 16:16 Dose: 1,000 mg Documented by: DYLAN Metoprolol Succinate (Toprol Xl) 25 mg PO BEDTIME [facility] Metoprolol Succinate (Toprol Xl) 50 mg PO QAM [facility] Ondansetron HCl (Zofran) 4 mg IV Q6H PRN PRN Reason: Nausea/Vomiting Ondansetron HCl (Zofran Odt) 4 mg PO Q6H PRN PRN Reason: Nausea able to take PO Senna/Docusate Sodium (Senna Plus) 1 tab PO BID PRN PRN Reason: Constipation Assessment/Plan Comment:: ASSESSMENT AND PLAN - Cellulitis of the right lower extremity including foot and great toe-I suspect the portal of entry was the ulcer on the right great toe. No evidence for osteomyelitis. History of similar infections in the past. No strong evidence to support sepsis at this time and vital signs are stable. With systemic symptoms and the severity of the infection I do not believe he is safe for outpatient management at this time. Cultures have been obtained and antibiotics initiated. CRP is 5 and he has mild leukocytosis. -Antibiotic coverage with ceftriaxone and vancomycin -Symptomatic management if he has pain -Elevate leg -Follow-up cultures Insulin-dependent diabetes mellitus-patient reports control of the diabetes has been improving with recent medication changes. -Continue home regimen Coronary artery disease-he had a non-ST elevation myocardial infarction that prompted angiogram and eventually a coronary artery bypass about 3 months ago. No significant anginal symptoms or dyspnea since then. -Continue medical management Morbid obesity with BMI 40-49- Maintenance issues - - DVT prophylaxis -enoxaparin - GI prophylaxis -not indicated - Nutrition -diabetic - Romo catheter -not indicated CODE STATUS -full code Admission justification -this patient will be admitted for inpatient services and is medically appropriate meeting medical necessity for inpatient admission as outlined in my documentation. I reasonably expect the patient will require inpatient services that span a period time over 2 midnights. I reasonably expect this patient to be discharged or transferred within 96 hours after admission to the [facility]. Disposition -I would anticipate discharge home after the hospital stay Primary care physician -Dr. Junior Melton M.D. - Mortality Measure Prognosis:: Good
[2019-12-15] MEDS: Gabapentin 300 MG Cap PO SCH (20:06)
[2019-12-15] MEDS: Lactobacillus Rhamnosus GG (Probiotic) Cap PO SCH (20:07)
[2019-12-15] MEDS: atorvaSTATin 20 MG Tab PO SCH (20:10)
[2019-12-15] MEDS: Insulin Glargine,Human Rec. Analog 100 Units/ML 3 ML Pen SUBCUT SCH (20:16)
[2019-12-15] MEDS ORDERED: Metoprolol Succinate 50 MG Tab.ER PO ONE (20:40)
[2019-12-15] MEDS ORDERED: Metoprolol Succinate 25 MG Tab.ER PO SCH (21:00)
[2019-12-16] MEDS: Sodium Chloride 0.9% 1,000 ML IV SCH (01:14)
[2019-12-16] MEDS: Vancomycin 2 GM in Sodium Chloride 0.9% 500 ML IV SCH ×2 (01:14→13:57)
[2019-12-16] MEDS: cefTRIAXone 1 GM in Sodium Chloride 0.9% 50 ML IV SCH ×2 (01:14→13:19)
[2019-12-16] MEDS: Insulin Lispro 100 Unit/ML 3 ML KwikPen SUBCUT SCH ×7 (07:02→20:59)
[2019-12-16] MEDS: metFORMIN 500 MG Tab PO SCH ×2 (07:09→16:35)
[2019-12-16] MEDS: Acetaminophen 325 MG Tab PO PRN ×2 (07:58→21:03)
[2019-12-16] MEDS: Enoxaparin 40 MG/0.4 ML Syringe SUBCUT SCH (08:00)
[2019-12-16] MEDS: Lactobacillus Rhamnosus GG (Probiotic) Cap PO SCH ×2 (08:00→20:59)
[2019-12-16] MEDS: Metoprolol Succinate 50 MG Tab.ER PO SCH (08:43)
[2019-12-16] MEDS ORDERED: Amiodarone 200 MG Tab PO SCH (09:00)
[2019-12-16] MEDS ORDERED: Aspirin 325 MG Tab.EC PO SCH (09:00)
--- NOTE | 2019-12-16 14:59 | PCM.PN ---
- General Info Date of Service: 12/16/19 Subjective Update: There were no acute events overnight. He did have a fever. Leg feels better today. Redness and swelling have decreased but not resolved. Nausea has resolved and has been tolerating his diet. White blood cell count is better. Cultures are negative so far. No shortness of breath reported. Blood sugars have been well controlled. Functional Status: Reports: Pain Controlled, Tolerating Diet - Patient Data Vitals - Most Recent: Last Vital Signs Temp 36.4 C 12/16/19 12:00 Pulse 75 12/16/19 08:43 Resp 17 12/16/19 12:00 BP 134/66 12/16/19 12:00 Pulse Ox 95 12/16/19 12:00 Weight - Most Recent: 150.593 kg I&O - Last 24 Hours: Intake & Output 12/15/19 12/16/19 12/16/19 22:59 06:59 14:59 Intake Total 1742 Balance 1742 Lab Results Last 24 Hours: Laboratory Results - last 24 hr 12/16/19 12/16/19 Range/Units 05:02 05:02 WBC 9.5 (4.5-11.0) K/uL RBC 3.85 L (4.30-5.90) M/uL Hgb 11.0 L (12.0-15.0) g/dL Hct 35.0 L (40.0-54.0) % MCV 91 (80-98) fL MCH 29 (27-31) pg MCHC 31 L (32-36) % Plt Count 230 (150-400) K/uL Sodium 142 (140-148) mmol/L Potassium 3.9 (3.6-5.2) mmol/L Chloride 106 (100-108) mmol/L Carbon Dioxide 29 (21-32) mmol/L Anion Gap 7.3 (5.0-14.0) mmol/L BUN 11 (7-18) mg/dL Creatinine 1.0 (0.8-1.3) mg/dL Est Cr Clr Drug Dosing 84.45 mL/min Estimated GFR (MDRD) > 60 (>60) Glucose 94 (74-106) mg/dL Calcium 8.5 (8.5-10.1) mg/dL Sathish Results Last 24 Hours: Microbiology 12/15/19 10:20 Aerobic Blood Culture - Preliminary Blood - Arm, Right NO GROWTH AFTER 1 DAY Anaerobic Blood Culture - Preliminary NO GROWTH AFTER 1 DAY 12/15/19 10:27 Aerobic Blood Culture - Preliminary Blood - Venous - Lab Draw NO GROWTH AFTER 1 DAY Anaerobic Blood Culture - Preliminary NO GROWTH AFTER 1 DAY Med Orders - Current: Current Medications Acetaminophen (Tylenol) 650 mg PO Q4H PRN PRN Reason: Pain (Mild 1-3)/fever Last Admin: 12/16/19 07:58 Dose: 650 mg Documented by: Hydrocodone Bitart/Acetaminophen ([place] 325-10 Mg) 1 tab PO Q4H PRN PRN Reason: Pain (moderate 4-6) Albuterol (Proventil Neb Soln) 2.5 mg NEB Q4H PRN PRN Reason: Shortness Of Breath/wheezing Atorvastatin Calcium (Lipitor) 40 mg PO BEDTIME [facility] Last Admin: 12/15/19 20:10 Dose: 40 mg Documented by: Enoxaparin Sodium (Lovenox) 40 mg SUBCUT DAILY [facility] Last Admin: 12/16/19 08:00 Dose: 40 mg Documented by: Gabapentin (Neurontin) 600 mg PO BEDTIME [facility] Last Admin: 12/15/19 20:06 Dose: 600 mg Documented by: Ceftriaxone Sodium 1 gm/ (Sodium Chloride) 50 mls @ 100 mls/hr IV Q12H [facility] Last Admin: 12/16/19 13:19 Dose: 100 mls/hr Documented by: Sodium Chloride (Normal Saline) 1,000 mls @ 100 mls/hr IV ASDIRECTED [facility] Last Admin: 12/16/19 01:14 Dose: 100 mls/hr Documented by: Insulin Glargine (Lantus Solostar) 60 units SUBCUT BEDTIME [facility] Last Admin: 12/15/19 20:16 Dose: 60 unit Documented by: Insulin Human Lispro (Humalog) 0 unit SUBCUT QIDACANDBED [facility]; Protocol Last Admin: 12/16/19 11:13 Dose: Not Given Documented by: Insulin Human Lispro (Humalog) 25 unit SUBCUT TIDAC [facility] Last Admin: 12/16/19 12:16 Dose: 25 units Documented by: Lactobacillus Rhamnosus (Culturelle) 1 cap PO BID [facility] Last Admin: 12/16/19 08:00 Dose: 1 cap Documented by: Lorazepam (Ativan) 0.5 mg IVPUSH Q4H PRN PRN Reason: Nausea/Vomiting Magnesium Hydroxide (Milk Of Magnesia) 30 ml PO Q12H PRN PRN Reason: Constipation Melatonin (Melatonin) 9 mg PO BEDTIME PRN PRN Reason: Sleep Metformin HCl (Glucophage) 1,000 mg PO BIDAC [facility] Last Admin: 12/16/19 07:09 Dose: 1,000 mg Documented by: Metoprolol Succinate (Toprol Xl) 50 mg PO QAM [facility] Last Admin: 12/16/19 08:43 Dose: 50 mg Documented by: Ondansetron HCl (Zofran) 4 mg IV Q6H PRN PRN Reason: Nausea/Vomiting Ondansetron HCl (Zofran Odt) 4 mg PO Q6H PRN PRN Reason: Nausea able to take PO Senna/Docusate Sodium (Senna Plus) 1 tab PO BID PRN PRN Reason: Constipation Discontinued Medications Amiodarone HCl (Cordarone) 200 mg PO DAILY [facility] Last Admin: 12/16/19 08:42 Dose: Not Given Documented by: Aspirin (Ecotrin) 325 mg PO DAILY [facility] Last Admin: 12/16/19 08:00 Dose: 325 mg Documented by: Sodium Chloride (Normal Saline) 1,000 mls @ 500 mls/hr IV .BOLUS STA Stop: 12/15/19 12:08 Last Admin: 12/15/19 11:22 Dose: 500 mls/hr Documented by: Ceftriaxone Sodium 1 gm/ (Sodium Chloride) 50 mls @ 100 mls/hr IV ONETIME ONE Stop: 12/15/19 12:36 Last Admin: 12/15/19 13:39 Dose: 100 mls/hr Documented by: Vancomycin HCl 2 gm/ Sodium (Chloride) 500 mls @ 250 mls/hr IV Q12H [facility] Stop: 12/15/19 15:59 Last Admin: 12/15/19 14:23 Dose: 250 mls/hr Documented by: Vancomycin HCl 2 gm/ Sodium (Chloride) 500 mls @ 250 mls/hr IV Q12H [facility] Last Admin: 12/16/19 13:57 Dose: 250 mls/hr Documented by: Insulin Human Lispro (Humalog) 20 unit SUBCUT TIDAC [facility] Last Admin: 12/15/19 16:21 Dose: Not Given Documented by: Metoprolol Succinate (Toprol Xl) 25 mg PO BEDTIME [facility] Metoprolol Succinate (Toprol Xl) 50 mg PO ONETIME ONE Stop: 12/15/19 20:41 Last Admin: 12/15/19 21:12 Dose: 50 mg Documented by: - Exam Quality Assessment: No: Supplemental Oxygen General: Alert, Oriented, Cooperative, No Acute Distress Lungs: Normal Respiratory Effort Cardiovascular: Regular Rate, Regular Rhythm GI/Abdominal Exam: Soft, No Distention Extremities: Pedal Edema, Increased Warmth (Right lower leg from below the knee to the ankle) Wound/Incisions: No Drainage (Ulcer on the plantar surface of the right great toe does not have drainage and is not warm), Erythema Improving (Right lower leg) Psy/Mental Status: Alert, Normal Affect Sepsis Event Note - Evaluation Sepsis Screening Result: No Definite Risk - Focused Exam Vital Signs: Vital Signs Temp Pulse Pulse Resp BP BP Pulse Ox 12/16/19 12:00 36.4 C 17 134/66 95 12/16/19 08:43 75 153/78 H 12/16/19 08:00 36.7 C 88 18 153/78 H 93 L 12/16/19 03:00 36.6 C 77 11 L 138/65 - Problem List & Annotations (1) Cellulitis of left lower extremity SNOMED Code(s): 455852850 Code(s): L03.116 - CELLULITIS OF LEFT LOWER LIMB Status: Acute Current Visit: Yes (2) Diabetic foot ulcer SNOMED Code(s): 826211766 Code(s): E11.621 - TYPE 2 DIABETES MELLITUS WITH FOOT ULCER; L97.509 - NON- PRESSURE CHRONIC ULCER OTH PRT UNSP FOOT W UNSP SEVERITY Status: Acute Current Visit: Yes Qualifiers: Diabetic foot ulcer location: toe Diabetes mellitus type: type 2 Laterality: right Non-pressure ulcer stage: limited to breakdown of skin Qualified Code(s): E11.621 - Type 2 diabetes mellitus with foot ulcer; L97.511 - Non-pressure chronic ulcer of other part of right foot limited to breakdown of skin (3) Diabetes mellitus SNOMED Code(s): 51048305 Code(s): E11.9 - TYPE 2 DIABETES MELLITUS WITHOUT COMPLICATIONS Status: Chronic Current Visit: No Qualifiers: Diabetes mellitus type: type 2 Diabetes mellitus longterm insulin use: without ad terminal makeup operator use Diabetes mellitus complication status: with neurologic complications Diabetes mellitus complication detail: with polyneuropathy Qualified Code(s): E11.42 - Type 2 diabetes mellitus with diabetic polyneuropathy (4) Coronary artery disease SNOMED Code(s): 87210860 Code(s): I25.10 - ATHSCL HEART DISEASE OF [place] CORONARY ARTERY W/O ANG PCTRS Status: Chronic Current Visit: Yes Qualifiers: Coronary Disease-Associated Artery/Lesion type: [place] artery [place] vs. transplanted heart: [place] heart Associated angina: without angina Qualified Code(s): I25.10 - Atherosclerotic heart disease of [place] coronary artery without angina pectoris (5) Morbid obesity with BMI of 45.0-49.9, adult SNOMED Code(s): 296304304, 69013671567520 Code(s): E66.01 - MORBID (SEVERE) OBESITY DUE TO EXCESS CALORIES; Z68.42 - BODY MASS INDEX (BMI) 45.0-49.9, ADULT Status: Chronic Current Visit: No - Problem List Review Problem List Initiated/Reviewed/Updated: Yes - My Orders Last 24 Hours: My Active Orders 12/15/19 14:02 Acetaminophen [TylenoL] 650 mg PO Q4H PRN Acetaminophen/HYDROcodone [[place] 325-10 MG] 1 tab PO Q4H PRN Albuterol [Proventil Neb Soln] 2.5 mg NEB Q4H PRN Docusate Sodium/Sennosides [Senna Plus] 1 tab PO BID PRN LORazepam [Ativan] 0.5 mg IVPUSH Q4H PRN Magnesium Hydroxide [Milk of Magnesia] 30 ml PO Q12H PRN Melatonin 9 mg PO BEDTIME PRN Ondansetron [Zofran ODT] 4 mg PO Q6H PRN Ondansetron [Zofran] 4 mg IV Q6H PRN Sodium Chloride 0.9% [Normal Saline] 1,000 ml IV ASDIRECTED 12/15/19 14:02 Patient Status [ADT] Routine Cardiac Monitoring [RC] CONTINUOUS Communication Order [RC] PRN Communication Order [RC] PRN Diabetes Education [RC] Click to Edit Intake and Output [RC] QSHIFT Notify Provider Vital Signs [RC] ASDIRECTED Notify Provider [RC] PRN Oxygen Therapy [RC] PRN RT Aerosol Therapy [RC] ASDIRECTED Up With Assistance [RC] ASDIRECTED VTE/DVT Education [RC] Per Unit Routine Vital Signs [RC] Q4H 12/15/19 16:16 Insulin Lispro [HumaLOG] 25 unit SUBCUT TIDAC 12/15/19 16:30 metFORMIN [Glucophage] 1,000 mg PO BIDAC 12/15/19 17:00 Insulin Lispro [HumaLOG] See Protocol SUBCUT QIDACANDBED 12/15/19 21:00 Gabapentin [Neurontin] 600 mg PO BEDTIME Insulin Glarg,Human.Rec.Analog [LantUS Solostar] 60 units SUBCUT BEDTIME Lactobacillus Rhamnosus GG [Culturelle] 1 cap PO BID atorvaSTATin [Lipitor] 40 mg PO BEDTIME 12/16/19 01:00 cefTRIAXone [Rocephin] 1 gm Sodium Chloride 0.9% [Normal Saline] 50 ml IV Q12H 12/16/19 09:00 Enoxaparin [Lovenox] 40 mg SUBCUT DAILY Metoprolol Succinate [Toprol XL] 50 mg PO QAM 12/16/19 14:56 Convert IV to Saline Lock [OM.PC] Routine 12/16/19 21:00 GLUCOSE POC LAB TO COLLECT JPM [POC] QIDACANDBED 12/17/19 07:30 GLUCOSE POC LAB TO COLLECT JPM [POC] QIDACANDBED 12/17/19 09:00 Aspirin [Halfprin] 81 mg PO DAILY 12/17/19 11:30 GLUCOSE POC LAB TO COLLECT JPM [POC] QIDACANDBED 12/17/19 16:30 GLUCOSE POC LAB TO COLLECT JPM [POC] QIDACANDBED 12/17/19 21:00 GLUCOSE POC LAB TO COLLECT JPM [POC] QIDACANDBED 12/18/19 07:30 GLUCOSE POC LAB TO COLLECT JPM [POC] QIDACANDBED 12/18/19 11:30 GLUCOSE POC LAB TO COLLECT JPM [POC] QIDACANDBED 12/18/19 16:30 GLUCOSE POC LAB TO COLLECT JPM [POC] QIDACANDBED 12/18/19 21:00 GLUCOSE POC LAB TO COLLECT JPM [POC] QIDACANDBED 12/19/19 07:30 GLUCOSE POC LAB TO COLLECT JPM [POC] QIDACANDBED 08/31/20 11:30 GLUCOSE POC LAB TO COLLECT JPM [POC] QIDACANDBED 12/19/19 16:30 GLUCOSE POC LAB TO COLLECT JPM [POC] QIDACANDBED 12/19/19 21:00 GLUCOSE POC LAB TO COLLECT JPM [POC] QIDACANDBED 12/20/19 07:30 GLUCOSE POC LAB TO COLLECT JPM [POC] QIDACANDBED 12/20/19 11:30 GLUCOSE POC LAB TO COLLECT JPM [POC] QIDACANDBED 12/20/19 16:30 GLUCOSE POC LAB TO COLLECT JPM [POC] QIDACANDBED 12/20/19 21:00 GLUCOSE POC LAB TO COLLECT JPM [POC] QIDACANDBED 12/21/19 07:30 GLUCOSE POC LAB TO COLLECT JPM [POC] QIDACANDBED - Plan Plan:: ASSESSMENT AND PLAN - Cellulitis of the right lower extremity including foot and great toe-I suspect the portal of entry was the ulcer on the right great toe. White blood cell count now normal and he is clinically improving. Redness and swelling have improved. No significant pain. We may be able to consider transition to oral medications tomorrow. -Continue antibiotic coverage with ceftriaxone and vancomycin -Symptomatic management if he has pain -Elevate leg -Follow-up cultures Insulin-dependent diabetes mellitus-well controlled so far. -Continue home regimen Coronary artery disease-he had a non-ST elevation myocardial infarction that prompted angiogram and eventually a coronary artery bypass about 3 months ago. No significant anginal symptoms or dyspnea since then. -Continue medical management Morbid obesity with BMI 40-49- Maintenance issues - - DVT prophylaxis -enoxaparin - GI prophylaxis -not indicated - Nutrition -diabetic Disposition -I would anticipate discharge home after the hospital stay Primary care physician -Dr. Junior Melton M.D.
[2019-12-16] MEDS: atorvaSTATin 20 MG Tab PO SCH (20:59)
[2019-12-16] MEDS: Insulin Glargine,Human Rec. Analog 100 Units/ML 3 ML Pen SUBCUT SCH (20:59)
[2019-12-16] MEDS: Gabapentin 300 MG Cap PO SCH (20:59)
[2019-12-17] MEDS: cefTRIAXone 1 GM in Sodium Chloride 0.9% 50 ML IV SCH ×2 (00:19→13:25)
[2019-12-17] MEDS: Insulin Lispro 100 Unit/ML 3 ML KwikPen SUBCUT SCH ×7 (09:11→20:56)
[2019-12-17] MEDS: Lactobacillus Rhamnosus GG (Probiotic) Cap PO SCH ×2 (09:11→20:57)
[2019-12-17] MEDS: metFORMIN 500 MG Tab PO SCH ×2 (09:11→18:15)
[2019-12-17] MEDS: Metoprolol Succinate 50 MG Tab.ER PO SCH (09:12)
[2019-12-17] MEDS: Aspirin 81 MG Tab.EC PO SCH (09:12)
[2019-12-17] MEDS: Enoxaparin 40 MG/0.4 ML Syringe SUBCUT SCH (09:12)
[2019-12-17] MEDS ORDERED: Furosemide 20 MG Tab PO PRN (11:25)
--- NOTE | 2019-12-17 11:29 | PCM.PN ---
- General Info Date of Service: 12/17/19 Subjective Update: There were no acute events overnight. Redness and swelling of the right lower leg continue to improve. No fevers. Appetite good. No nausea. A little weak in the legs but otherwise doing well. Blood sugars have been well controlled. Cultures are negative. Functional Status: Reports: Pain Controlled, Tolerating Diet - Review of Systems General: Denies: Fever Cardiovascular: Reports: Edema - Patient Data Vitals - Most Recent: Last Vital Signs Temp 37.3 C 12/17/19 08:33 Pulse 88 12/17/19 09:12 Resp 12 12/17/19 08:33 BP 182/82 H 12/17/19 09:12 Pulse Ox 95 12/17/19 08:33 Weight - Most Recent: 150.593 kg I&O - Last 24 Hours: Intake & Output 12/16/19 12/17/19 12/17/19 22:59 06:59 14:59 Intake Total 2498 50 480 Balance 2498 50 480 Lab Results Last 24 Hours: Laboratory Results - last 24 hr 12/16/19 12/16/19 12/17/19 Range/Units 16:24 20:59 07:30 POC Glucose 202 H 135 H 108 H (74-106) MG/DL Sathish Results Last 24 Hours: Microbiology 12/15/19 10:27 Aerobic Blood Culture - Preliminary Blood - Venous - Lab Draw NO GROWTH AFTER 2 DAYS Anaerobic Blood Culture - Preliminary NO GROWTH AFTER 2 DAYS 12/15/19 10:20 Aerobic Blood Culture - Preliminary Blood - Arm, Right NO GROWTH AFTER 2 DAYS Anaerobic Blood Culture - Preliminary NO GROWTH AFTER 2 DAYS Med Orders - Current: Current Medications Acetaminophen (Tylenol) 650 mg PO Q4H PRN PRN Reason: Pain (Mild 1-3)/fever Last Admin: 12/16/19 21:03 Dose: 650 mg Documented by: Hydrocodone Bitart/Acetaminophen ([place] 325-10 Mg) 1 tab PO Q4H PRN PRN Reason: Pain (moderate 4-6) Albuterol (Proventil Neb Soln) 2.5 mg NEB Q4H PRN PRN Reason: Shortness Of Breath/wheezing Aspirin (Halfprin) 81 mg PO DAILY [facility] Last Admin: 12/17/19 09:12 Dose: 81 mg Documented by: Atorvastatin Calcium (Lipitor) 40 mg PO BEDTIME [facility] Last Admin: 12/16/19 20:59 Dose: 40 mg Documented by: Enoxaparin Sodium (Lovenox) 40 mg SUBCUT DAILY [facility] Last Admin: 12/17/19 09:12 Dose: 40 mg Documented by: Furosemide (Lasix) 20 mg PO DAILY PRN PRN Reason: Edema Gabapentin (Neurontin) 600 mg PO BEDTIME [facility] Last Admin: 12/16/19 20:59 Dose: 600 mg Documented by: Ceftriaxone Sodium 1 gm/ (Sodium Chloride) 50 mls @ 100 mls/hr IV Q12H [facility] Last Admin: 12/17/19 00:19 Dose: 100 mls/hr Documented by: Insulin Glargine (Lantus Solostar) 60 units SUBCUT BEDTIME [facility] Last Admin: 12/16/19 20:59 Dose: 60 unit Documented by: Insulin Human Lispro (Humalog) 0 unit SUBCUT QIDACANDBED [facility]; Protocol Last Admin: 12/17/19 09:11 Dose: Not Given Documented by: Insulin Human Lispro (Humalog) 25 unit SUBCUT TIDAC [facility] Last Admin: 12/17/19 09:14 Dose: 25 units Documented by: Lactobacillus Rhamnosus (Culturelle) 1 cap PO BID [facility] Last Admin: 12/17/19 09:11 Dose: 1 cap Documented by: Lorazepam (Ativan) 0.5 mg IVPUSH Q4H PRN PRN Reason: Nausea/Vomiting Magnesium Hydroxide (Milk Of Magnesia) 30 ml PO Q12H PRN PRN Reason: Constipation Melatonin (Melatonin) 9 mg PO BEDTIME PRN PRN Reason: Sleep Metformin HCl (Glucophage) 1,000 mg PO BIDAC [facility] Last Admin: 12/17/19 09:11 Dose: 1,000 mg Documented by: Metoprolol Succinate (Toprol Xl) 50 mg PO QAM [facility] Last Admin: 12/17/19 09:12 Dose: 50 mg Documented by: Ondansetron HCl (Zofran) 4 mg IV Q6H PRN PRN Reason: Nausea/Vomiting Ondansetron HCl (Zofran Odt) 4 mg PO Q6H PRN PRN Reason: Nausea able to take PO Senna/Docusate Sodium (Senna Plus) 1 tab PO BID PRN PRN Reason: Constipation Discontinued Medications Amiodarone HCl (Cordarone) 200 mg PO DAILY [facility] Last Admin: 12/16/19 08:42 Dose: Not Given Documented by: Aspirin (Ecotrin) 325 mg PO DAILY [facility] Last Admin: 12/16/19 08:00 Dose: 325 mg Documented by: Sodium Chloride (Normal Saline) 1,000 mls @ 500 mls/hr IV .BOLUS STA Stop: 12/15/19 12:08 Last Admin: 12/15/19 11:22 Dose: 500 mls/hr Documented by: Ceftriaxone Sodium 1 gm/ (Sodium Chloride) 50 mls @ 100 mls/hr IV ONETIME ONE Stop: 12/15/19 12:36 Last Admin: 12/15/19 13:39 Dose: 100 mls/hr Documented by: Vancomycin HCl 2 gm/ Sodium (Chloride) 500 mls @ 250 mls/hr IV Q12H [facility] Stop: 12/15/19 15:59 Last Admin: 12/15/19 14:23 Dose: 250 mls/hr Documented by: Vancomycin HCl 2 gm/ Sodium (Chloride) 500 mls @ 250 mls/hr IV Q12H [facility] Last Admin: 12/16/19 13:57 Dose: 250 mls/hr Documented by: Sodium Chloride (Normal Saline) 1,000 mls @ 100 mls/hr IV ASDIRECTED [facility] Last Admin: 12/16/19 01:14 Dose: 100 mls/hr Documented by: Insulin Human Lispro (Humalog) 20 unit SUBCUT TIDAC [facility] Last Admin: 12/15/19 16:21 Dose: Not Given Documented by: Metoprolol Succinate (Toprol Xl) 25 mg PO BEDTIME [facility] Metoprolol Succinate (Toprol Xl) 50 mg PO ONETIME ONE Stop: 12/15/19 20:41 Last Admin: 12/15/19 21:12 Dose: 50 mg Documented by: - Exam Quality Assessment: No: Supplemental Oxygen General: Alert, Oriented, Cooperative, No Acute Distress Lungs: Normal Respiratory Effort Cardiovascular: Regular Rate, Regular Rhythm GI/Abdominal Exam: Soft, No Distention Extremities: Pedal Edema. No: Increased Warmth Skin: Warm, Dry, Rash (erythema right lower leg from [place] to the ankle ) Psy/Mental Status: Alert, Normal Affect Sepsis Event Note - Evaluation Sepsis Screening Result: No Definite Risk - Focused Exam Vital Signs: Vital Signs Temp Pulse Pulse Resp BP BP BP 12/17/19 09:12 88 182/82 H 12/17/19 08:33 37.3 C 82 12 182/82 H 12/17/19 02:26 36.5 C 91 16 163/71 H Pulse Ox 12/17/19 09:12 12/17/19 08:33 95 12/17/19 02:26 93 L - Problem List & Annotations (1) Cellulitis of left lower extremity SNOMED Code(s): 475439196 Code(s): L03.116 - CELLULITIS OF LEFT LOWER LIMB Status: Acute Current Visit: Yes (2) Diabetic foot ulcer SNOMED Code(s): 928377654 Code(s): E11.621 - TYPE 2 DIABETES MELLITUS WITH FOOT ULCER; L97.509 - NON- PRESSURE CHRONIC ULCER OTH PRT UNSP FOOT W UNSP SEVERITY Status: Acute Current Visit: Yes Qualifiers: Diabetic foot ulcer location: toe Diabetes mellitus type: type 2 Laterality: right Non-pressure ulcer stage: limited to breakdown of skin Qualified Code(s): E11.621 - Type 2 diabetes mellitus with foot ulcer; L97.511 - Non-pressure chronic ulcer of other part of right foot limited to breakdown of skin (3) Diabetes mellitus SNOMED Code(s): 02912834 Code(s): E11.9 - TYPE 2 DIABETES MELLITUS WITHOUT COMPLICATIONS Status: Chronic Current Visit: No Qualifiers: Diabetes mellitus type: type 2 Diabetes mellitus 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 vs. transplanted heart: [place] heart Associated angina: without angina Qualified Code(s): I25.10 - Atherosclerotic heart disease of [place] coronary artery without angina pectoris (5) Morbid obesity with BMI of 45.0-49.9, adult SNOMED Code(s): 507164600, 94601398586234 Code(s): E66.01 - MORBID (SEVERE) OBESITY DUE TO EXCESS CALORIES; Z68.42 - BODY MASS INDEX (BMI) 45.0-49.9, ADULT Status: Chronic Current Visit: No - Problem List Review Problem List Initiated/Reviewed/Updated: Yes - My Orders Last 24 Hours: My Active Orders 12/16/19 14:56 Convert IV to Saline Lock [OM.PC] Routine 12/17/19 09:00 Aspirin [Halfprin] 81 mg PO DAILY 12/17/19 11:25 Sukhi Bandage [RC] ROUTINE Wound Care [RC] DAILY Furosemide [Lasix] 20 mg PO DAILY PRN 12/17/19 11:26 Communication Order [RC] DAILY 12/17/19 11:30 GLUCOSE POC LAB TO COLLECT JPM [POC] QIDACANDBED 12/17/19 16:30 GLUCOSE POC LAB TO COLLECT JPM [POC] QIDACANDBED 12/17/19 21:00 GLUCOSE POC LAB TO COLLECT JPM [POC] QIDACANDBED 12/18/19 07:30 GLUCOSE POC LAB TO COLLECT JPM [POC] QIDACANDBED GLUCOSE POC LAB TO COLLECT JPM [POC] QIDACANDBED 12/18/19 11:30 GLUCOSE POC LAB TO COLLECT JPM [POC] QIDACANDBED GLUCOSE POC LAB TO COLLECT JPM [POC] QIDACANDBED 12/18/19 16:30 GLUCOSE POC LAB TO COLLECT JPM [POC] QIDACANDBED GLUCOSE POC LAB TO COLLECT JPM [POC] QIDACANDBED 12/18/19 21:00 GLUCOSE POC LAB TO COLLECT JPM [POC] QIDACANDBED GLUCOSE POC LAB TO COLLECT JPM [POC] QIDACANDBED 12/19/19 07:30 GLUCOSE POC LAB TO COLLECT JPM [POC] QIDACANDBED GLUCOSE POC LAB TO COLLECT JPM [POC] QIDACANDBED 12/19/19 11:30 GLUCOSE POC LAB TO COLLECT JPM [POC] QIDACANDBED GLUCOSE POC LAB TO COLLECT JPM [POC] QIDACANDBED 12/19/19 16:30 GLUCOSE POC LAB TO COLLECT JPM [POC] QIDACANDBED GLUCOSE POC LAB TO COLLECT JPM [POC] QIDACANDBED 12/19/19 21:00 GLUCOSE POC LAB TO COLLECT JPM [POC] QIDACANDBED GLUCOSE POC LAB TO COLLECT JPM [POC] QIDACANDBED 12/20/19 07:30 GLUCOSE POC LAB TO COLLECT JPM [POC] QIDACANDBED GLUCOSE POC LAB TO COLLECT JPM [POC] QIDACANDBED 12/20/19 11:30 GLUCOSE POC LAB TO COLLECT JPM [POC] QIDACANDBED GLUCOSE POC LAB TO COLLECT JPM [POC] QIDACANDBED 12/20/19 16:30 GLUCOSE POC LAB TO COLLECT JPM [POC] QIDACANDBED GLUCOSE POC LAB TO COLLECT JPM [POC] QIDACANDBED 12/20/19 21:00 GLUCOSE POC LAB TO COLLECT JPM [POC] QIDACANDBED GLUCOSE POC LAB TO COLLECT JPM [POC] QIDACANDBED 12/21/19 07:30 GLUCOSE POC LAB TO COLLECT JPM [POC] QIDACANDBED GLUCOSE POC LAB TO COLLECT JPM [POC] QIDACANDBED 12/21/19 11:30 GLUCOSE POC LAB TO COLLECT JPM [POC] QIDACANDBED 12/21/19 16:30 GLUCOSE POC LAB TO COLLECT JPM [POC] QIDACANDBED 12/21/19 21:00 GLUCOSE POC LAB TO COLLECT JPM [POC] QIDACANDBED - Plan Plan:: ASSESSMENT AND PLAN - Cellulitis of the right lower extremity including foot and great toe-I suspect the portal of entry was the ulcer on the right great toe. No fevers. Redness and warmth are much better today but there is a fair amount of swelling. No pain. Suspect strep infection -Continue antibiotic coverage with ceftriaxone -Discontinue vancomycin -Symptomatic management if he has pain -Elevate leg -Dose of furosemide today -Follow-up cultures Insulin-dependent diabetes mellitus-well controlled so far. -Continue home regimen Coronary artery disease-he had a non-ST elevation myocardial infarction that prompted angiogram and eventually a coronary artery bypass about 3 months ago. No significant anginal symptoms or dyspnea since then. -Continue medical management Morbid obesity with BMI 40-49- Maintenance issues - - DVT prophylaxis -enoxaparin - GI prophylaxis -not indicated - Nutrition -diabetic Disposition -I would anticipate discharge home after the hospital stay, hopefully tomorrow if stable overnight Primary care physician -Dr. Junior Melton M.D.
[2019-12-17] MEDS: Acetaminophen 325 MG Tab PO PRN ×2 (12:11→20:20)
[2019-12-17] MEDS: Bacitracin Oint 28.35 GM Tube TOP SCH (13:24)
[2019-12-17] MEDS: Insulin Glargine,Human Rec. Analog 100 Units/ML 3 ML Pen SUBCUT SCH (20:16)
[2019-12-17] MEDS: Gabapentin 300 MG Cap PO SCH (20:16)
[2019-12-17] MEDS: atorvaSTATin 20 MG Tab PO SCH (20:16)
[2019-12-18] MEDS: cefTRIAXone 1 GM in Sodium Chloride 0.9% 50 ML IV SCH ×2
[2019-12-18] MEDS: Insulin Lispro 100 Unit/ML 3 ML KwikPen SUBCUT SCH ×3 (07:48→08:08)
[2019-12-18 08:12] VITALS: BP 164/76; PULSE 82
[2019-12-18] MEDS: Metoprolol Succinate 50 MG Tab.ER PO SCH (08:13)
[2019-12-18] MEDS: Bacitracin Oint 28.35 GM Tube TOP SCH (08:13)
[2019-12-18] MEDS: Lactobacillus Rhamnosus GG (Probiotic) Cap PO SCH (08:13)
[2019-12-18] MEDS: metFORMIN 500 MG Tab PO SCH (08:13)
[2019-12-18] MEDS: Enoxaparin 40 MG/0.4 ML Syringe SUBCUT SCH (08:14)
[2019-12-18] MEDS: Aspirin 81 MG Tab.EC PO SCH (08:14)
--- NOTE | 2019-12-18 09:32 | PCM.DCSUM1 ---
Discharge Summary - Hospital Course Brief History: 54-year-old male with insulin-dependent diabetes mellitus with a foot ulcer on the right great toe, coronary artery disease, obesity who presented with increasing pain, redness and swelling of the right lower leg. He was admitted for management of cellulitis. Diagnosis: Stroke: No - Discharge Data Discharge Date: 12/18/19 Discharge Disposition: Home, Self-Care 01 Condition: Good - Referral to Home Health Primary Care Physician: Dwayne Pacheco MD - Discharge Diagnosis/Problem(s) (1) Cellulitis of left lower extremity SNOMED Code(s): 995939470 ICD Code: L03.116 - CELLULITIS OF LEFT LOWER LIMB Status: Acute (2) Diabetic foot ulcer SNOMED Code(s): 303339852 ICD Code: E11.621 - TYPE 2 DIABETES MELLITUS WITH FOOT ULCER; L97.509 - NON- PRESSURE CHRONIC ULCER OTH PRT UNSP FOOT W UNSP SEVERITY Status: Acute Qualifiers: Diabetic foot ulcer location: toe Diabetes mellitus type: type 2 Laterality: right Non-pressure ulcer stage: limited to breakdown of skin Qualified Code(s): E11.621 - Type 2 diabetes mellitus with foot ulcer; L97.511 - Non-pressure chronic ulcer of other part of right foot limited to breakdown of skin (3) Diabetes mellitus SNOMED Code(s): 10497430 ICD Code: E11.9 - TYPE 2 DIABETES MELLITUS WITHOUT COMPLICATIONS Status: Chronic Qualifiers: Diabetes mellitus type: type 2 Diabetes mellitus buttermaker insulin use: without buttermaker use Diabetes mellitus complication status: with neurologic complications Diabetes mellitus complication detail: with polyneuropathy Qualified Code(s): E11.42 - Type 2 diabetes mellitus with diabetic polyneuropathy (4) Coronary artery disease SNOMED Code(s): 68240921 ICD Code: I25.10 - ATHSCL HEART DISEASE OF [place] CORONARY ARTERY W/O ANG PCTRS Status: Chronic Qualifiers: Coronary Disease-Associated Artery/Lesion type: [place] artery [place] vs. transplanted heart: [place] heart Associated angina: without angina Qualified Code(s): I25.10 - Atherosclerotic heart disease of [place] coronary artery without angina pectoris (5) Morbid obesity with BMI of 45.0-49.9, adult SNOMED Code(s): 102255195, 23225796970611 ICD Code: E66.01 - MORBID (SEVERE) OBESITY DUE TO EXCESS CALORIES; Z68.42 - BODY MASS INDEX (BMI) 45.0-49.9, ADULT Status: Chronic - Patient Summary/Data Hospital Course: Yuri presented to the emergency room with increasing redness, pain and swelling of the right lower extremity. He also had some nausea. Work-up in the emergency room raised concern for cellulitis of the right leg with the origin of the infection thought to be related to a chronic diabetic ulcer on his right great toe. We did get an x-ray of the toe and there is no evidence for osteomyelitis. We started him on ceftriaxone and vancomycin and admitted him to the hospital for further management. We saw fairly rapid improvement of the in fection over the course of the next couple of days. The redness and warmth improved dramatically. The swelling was a little bit more stubborn but did improve with some gentle diuresis and wrapping of the lower leg. His white blood cell count normalized quickly. He did not have any fevers. He has not had significant pain. He has been receiving daily dressing changes for the diabetic foot ulcer. We made the transition from 2 antibiotics down to 1 and he continued to improve on ceftriaxone so the plan is for him to go home with Cefdinir. His diabetes has been well controlled and we did not make any changes to his medication regimen. He did have moderately elevated blood pressures but has had good readings in clinic. No significant chest pain or dyspnea with his recent heart issues. Strength has been good. Appetite has been good. - Patient Instructions Diet: Diabetic Diet Activity: As Tolerated Driving: May Drive Today Showering/Bathing: May Shower Notify Provider of: Fever, Increased Pain Other/Special Instructions: 1. You were in the hospital for management of cellulitis involving the right lower leg. Your condition is improving with antibiotic therapy. We did not determine a culprit bacteria but because you have responded well to the ceftriaxone I would recommend ongoing antibiotic therapy with cefdinir (Omnicef). Please take 300 mg twice daily with food for 11 more doses. Your first dose outside of the hospital will be due tonight. 2. Continue your other home medications as previously prescribed. 3. Follow up as scheduled with primary care and the human resources professional. 4. Seek medical attent ion if you have fever greater than 101, significant pain in the right lower leg or if you have increasing redness, warmth or swelling of that leg - Discharge Plan *PRESCRIPTION DRUG MONITORING PROGRAM REVIEWED*: Not Applicable *COPY OF PRESCRIPTION DRUG MONITORING REPORT IN PATIENT PAMELA: Not Applicable Prescriptions/Med Rec: Cefdinir 300 mg PO BID #11 capsule Furosemide [Lasix] 20 mg PO DAILY PRN #30 tablet PRN Reason: Edema Home Medications: Home Meds Gabapentin [Neurontin] 600 mg PO BEDTIME 10/01/14 [History] metFORMIN HCl [Metformin HCl] 1,000 mg PO BIDAC 11/19/16 [History] Metoprolol Succinate [Toprol XL] 50 mg PO QAM 09/07/19 [History] atorvaSTATin [Lipitor] 40 mg PO BEDTIME 09/07/19 [History] Ascorbic Acid [C-500] 500 mg PO DAILY 09/19/19 [History] Hydrocodone/Acetaminophen [Hydrocodon-Acetaminophn 10-325] 1 tab PO Q4H PRN 09/19/19 [History] Insulin Glargine,Hum.Rec.Anlog [Lantus Solostar] 60 units SQ BEDTIME 12/15/19 [History] Insulin Lispro [HumaLOG] 25 units SQ TIDAC 12/15/19 [History] Aspirin [Adult Low Dose Aspirin EC] 81 mg PO DAILY 12/16/19 [History] Nitroglycerin 1 tab SL ASDIRECTED PRN 12/16/19 [History] Cefdinir 300 mg PO BID #11 capsule 12/18/19 [Rx] Furosemide [Lasix] 20 mg PO DAILY PRN #30 tablet 12/18/19 [Rx] Oxygen Therapy Mode: Room Air Patient Handouts: Cellulitis, Adult, Cefdinir capsules Referrals: Dwayne Pacheco MD [Primary Care Provider] - 12/27/19 1:30 pm (Arrive 15 minutes early to register for your appointment.) Sheila Salcedo [Registered Dietitian] - 12/27/19 2:00 pm - Discharge Summary/Plan Comment DC Time >30 min.: No - Patient Data Vitals - Most Recent: Last Vital Signs Temp 36.8 C 12/18/19 08:09 Pulse 82 12/18/19 08:13 Resp 20 12/18/19 08:09 BP 164/76 H 12/18/19 08:13 Pulse Ox 94 L 12/18/19 08:09 Weight - Most Recent: 150.593 kg I&O - Last 24 hours: Intake & Output 12/17/19 12/18/19 12/18/19 22:59 06:59 14:59 Intake Total 1015 850 450 Output Total 1900 1200 Balance -885 850 -750 Lab Results - Last 24 hrs: Laboratory Results - last 24 hr 12/17/19 12/17/19 12/17/19 Range/Units 11:30 16:25 21:00 POC Glucose 270 H 97 121 H (74-106) MG/DL 12/18/19 Range/Units 07:30 POC Glucose 89 (74-106) MG/DL MOHINDER Results - Last 24 hrs: Microbiology 12/15/19 10:27 Aerobic Blood Culture - Preliminary Blood - Venous - Lab Draw NO GROWTH AFTER 2 DAYS Anaerobic Blood Culture - Preliminary NO GROWTH AFTER 2 DAYS 12/15/19 10:20 Aerobic Blood Culture - Preliminary Blood - Arm, Right NO GROWTH AFTER 2 DAYS Anaerobic Blood Culture - Preliminary NO GROWTH AFTER 2 DAYS Med Orders - Current: Current Medications Acetaminophen (Tylenol) 650 mg PO Q4H PRN PRN Reason: Pain (Mild 1-3)/fever Last Admin: 12/17/19 20:20 Dose: 650 mg Documented by: Hydrocodone Bitart/Acetaminophen ([place] 325-10 Mg) 1 tab PO Q4H PRN PRN Reason: Pain (moderate 4-6) Albuterol (Proventil Neb Soln) 2.5 mg NEB Q4H PRN PRN Reason: Shortness Of Breath/wheezing Aspirin (Halfprin) 81 mg PO DAILY [facility] Last Admin: 12/18/19 08:14 Dose: 81 mg Documented by: Atorvastatin Calcium (Lipitor) 40 mg PO BEDTIME [facility] Last Admin: 12/17/19 20:16 Dose: 40 mg Documented by: Bacitracin (Bacitracin Oint) 0 gm TOP DAILY [facility] Last Admin: 12/18/19 08:13 Dose: 1 applic Documented by: Enoxaparin Sodium (Lovenox) 40 mg SUBCUT DAILY [facility] Last Admin: 12/18/19 08:14 Dose: 40 mg Documented by: Furosemide (Lasix) 20 mg PO DAILY PRN PRN Reason: Edema Last Admin: 12/17/19 12:11 Dose: 20 mg Documented by: Gabapentin (Neurontin) 600 mg PO BEDTIME [facility] Last Admin: 12/17/19 20:16 Dose: 600 mg Documented by: Ceftriaxone Sodium 1 gm/ (Sodium Chloride) 50 mls @ 100 mls/hr IV Q12H [facility] Last Admin: 12/18/19 00:00 Dose: 100 mls/hr Documented by: Insulin Glargine (Lantus Solostar) 60 units SUBCUT BEDTIME [facility] Last Admin: 12/17/19 20:16 Dose: 60 unit Documented by: Insulin Human Lispro (Humalog) 0 unit SUBCUT QIDACANDBED [facility]; Protocol Last Admin: 12/18/19 08:08 Dose: Not Given Documented by: Insulin Human Lispro (Humalog) 25 unit SUBCUT TIDAC [facility] Last Admin: 12/18/19 08:05 Dose: 25 units Documented by: Lactobacillus Rhamnosus (Culturelle) 1 cap PO BID [facility] Last Admin: 12/18/19 08:13 Dose: 1 cap Documented by: Lorazepam (Ativan) 0.5 mg IVPUSH Q4H PRN PRN Reason: Nausea/Vomiting Magnesium Hydroxide (Milk Of Magnesia) 30 ml PO Q12H PRN PRN Reason: Constipation Melatonin (Melatonin) 9 mg PO BEDTIME PRN PRN Reason: Sleep Metformin HCl (Glucophage) 1,000 mg PO BIDAC [facility] Last Admin: 12/18/19 08:13 Dose: 1,000 mg Documented by: Metoprolol Succinate (Toprol Xl) 50 mg PO QAM [facility] Last Admin: 12/18/19 08:13 Dose: 50 mg Documented by: Ondansetron HCl (Zofran) 4 mg IV Q6H PRN PRN Reason: Nausea/Vomiting Ondansetron HCl (Zofran Odt) 4 mg PO Q6H PRN PRN Reason: Nausea able to take PO Senna/Docusate Sodium (Senna Plus) 1 tab PO BID PRN PRN Reason: Constipation Discontinued Medications Amiodarone HCl (Cordarone) 200 mg PO DAILY [facility] Last Admin: 12/16/19 08:42 Dose: Not Given Documented by: Aspirin (Ecotrin) 325 mg PO DAILY [facility] Last Admin: 12/16/19 08:00 Dose: 325 mg Documented by: Sodium Chloride (Normal Saline) 1,000 mls @ 500 mls/hr IV .BOLUS STA Stop: 12/15/19 12:08 Last Admin: 12/15/19 11:22 Dose: 500 mls/hr Documented by: Ceftriaxone Sodium 1 gm/ (Sodium Chloride) 50 mls @ 100 mls/hr IV ONETIME ONE Stop: 12/15/19 12:36 Last Admin: 12/15/19 13:39 Dose: 100 mls/hr Documented by: Vancomycin HCl 2 gm/ Sodium (Chloride) 500 mls @ 250 mls/hr IV Q12H [facility] Stop: 12/15/19 15:59 Last Admin: 12/15/19 14:23 Dose: 250 mls/hr Documented by: Vancomycin HCl 2 gm/ Sodium (Chloride) 500 mls @ 250 mls/hr IV Q12H [facility] Last Admin: 12/16/19 13:57 Dose: 250 mls/hr Documented by: Sodium Chloride (Normal Saline) 1,000 mls @ 100 mls/hr IV ASDIRECTED [facility] Last Admin: 12/16/19 01:14 Dose: 100 mls/hr Documented by: Insulin Human Lispro (Humalog) 20 unit SUBCUT TIDAC [facility] Last Admin: 12/15/19 16:21 Dose: Not Given Documented by: Metoprolol Succinate (Toprol Xl) 25 mg PO BEDTIME [facility] Metoprolol Succinate (Toprol Xl) 50 mg PO ONETIME ONE Stop: 12/15/19 20:41 Last Admin: 12/15/19 21:12 Dose: 50 mg Documented by: - Exam General: Reports: Alert, Oriented, Cooperative, No Acute Distress Lungs: Reports: Clear to Auscultation, Normal Respiratory Effort GI/Abdominal Exam: Soft, No Distention Extremities: Pedal Edema (Mild). No: Increased Warmth Skin: Reports: Rash (Mild erythema distal half of the right lower leg anteriorly as well as some chronic venous stasis changes) Psy/Mental Status: Reports: Alert, Normal Affect
== END 2019-12-18 10:15 | disposition home or self-care (01) | DRG 638 ==
LOC: JP.ED 09:44 → JP.ICU 13:20 → JP.MS 12-16 14:36
PROVIDERS: ADMIT Internal Medicine; ATTEND Internal Medicine
DX: E11.628 Type 2 diabetes mellitus with other skin complications (principal); Z68.42 Body mass index [BMI] 45.0-49.9, adult; L03.115 Cellulitis of right lower limb; E11.621 Type 2 diabetes mellitus with foot ulcer; L97.511 Non-pressure chronic ulcer of other part of right foot limited to breakdown of skin; I25.10 Atherosclerotic heart disease of native coronary artery without angina pectoris; E11.42 Type 2 diabetes mellitus with diabetic polyneuropathy; E66.01 Morbid (severe) obesity due to excess calories; Z79.4 Long term (current) use of insulin; Z79.899 Other long term (current) drug therapy; L03.031 Cellulitis of right toe; Z79.82 Long term (current) use of aspirin; H54.7 Unspecified visual loss; Z95.1 Presence of aortocoronary bypass graft; I10 Essential (primary) hypertension; I25.2 Old myocardial infarction; Z87.01 Personal history of pneumonia (recurrent); E11.21 Type 2 diabetes mellitus with diabetic nephropathy; Z87.442 Personal history of urinary calculi; Z87.440 Personal history of urinary (tract) infections; M10.9 Gout, unspecified; F90.9 Attention-deficit hyperactivity disorder, unspecified type; Z90.89 Acquired absence of other organs
CPT/HCPCS: 36415; 71046; 71046-26; 73660-26-T5; 73660-T5; 80048; 80053; 82962; 83605; 83880; 84484; 85025; 85027; 85610; 86140; 87040; 93005; 93010; 96360; 99284; 99284-25; A9270-GY; J0696; J1650; J1815; J1815-GY; J3370; J7030; J7040; J7050

== ENCOUNTER 2022-06-27 13:57 | Emergency (ER) | payer MEDICAID ==
[2022-06-27 14:23] VITALS: BP 194/105; PULSE 107
[2022-06-27] MEDS ORDERED: Sodium Chloride 0.9% 10 ML Syringe FLUSH PRN (14:44)
[2022-06-27 15:19] LABS: ESTIMATED GFR 71 mL/min (>60)
[2022-06-27 15:31] LABS: CORONAVIRUS COVID-19 NAA NEGATIVE (NEGATIVE)
[2022-06-27] MEDS ORDERED: Magnesium Oxide 400 MG Tab PO ONE (15:39)
== END 2022-06-27 16:10 | disposition home or self-care (01) ==
LOC: JP.ED 13:57
DX: I25.10 Atherosclerotic heart disease of native coronary artery without angina pectoris (principal); E11.42 Type 2 diabetes mellitus with diabetic polyneuropathy; I11.0 Hypertensive heart disease with heart failure; I50.9 Heart failure, unspecified; I73.9 Peripheral vascular disease, unspecified; R14.0 Abdominal distension (gaseous); G47.33 Obstructive sleep apnea (adult) (pediatric); R31.21 Asymptomatic microscopic hematuria; R80.9 Proteinuria, unspecified; E66.01 Morbid (severe) obesity due to excess calories; Z68.54 Body mass index [BMI] pediatric, 95th percentile for age to less than 120% of the 95th percentile for age; Z20.822 Contact with and (suspected) exposure to COVID-19; Z95.1 Presence of aortocoronary bypass graft; Z79.4 Long term (current) use of insulin; Z79.82 Long term (current) use of aspirin; Z79.84 Long term (current) use of oral hypoglycemic drugs; Z79.899 Other long term (current) drug therapy
CPT/HCPCS: 0241U; 36415; 71045; 80053; 81001; 82009; 82803; 83605; 83690; 83735; 83880; 84484; 85025; 86140; 93005; 93010; 99284; A9270; J3490

== ENCOUNTER 2024-10-14 08:50 | Emergency (ER) | payer MEDICARE, MEDICAID ==
[2024-10-14 09:24] VITALS: BP 129/59; PULSE 70
== END 2024-10-14 10:22 | disposition home or self-care (01) ==
LOC: JP.ED 08:50
DX: K64.5 Perianal venous thrombosis (principal); I10 Essential (primary) hypertension; I25.2 Old myocardial infarction; E11.40 Type 2 diabetes mellitus with diabetic neuropathy, unspecified; Z79.84 Long term (current) use of oral hypoglycemic drugs; Z79.899 Other long term (current) drug therapy; Z79.4 Long term (current) use of insulin; Z95.5 Presence of coronary angioplasty implant and graft
CPT/HCPCS: 99282; 99283

== ENCOUNTER 2025-03-12 17:14 | Emergency (ER) | payer MEDICARE, MEDICAID ==
[2025-03-12 17:30] VITALS: BP 156/63; PULSE 78
[2025-03-12] MEDS: Lidocaine 2% Viscous Solution 100 ML Bottle PO ONE (18:52)
[2025-03-12] MEDS: Lidocaine 2% Jelly 10 ML Urojet MUCMEM ONE (18:52)
== END 2025-03-12 19:10 | disposition home or self-care (01) ==
LOC: JP.ED 17:14
DX: K60.2 Anal fissure, unspecified (principal); K59.00 Constipation, unspecified; I10 Essential (primary) hypertension; I25.2 Old myocardial infarction; E11.21 Type 2 diabetes mellitus with diabetic nephropathy; E66.9 Obesity, unspecified; Z95.5 Presence of coronary angioplasty implant and graft; Z79.4 Long term (current) use of insulin; Z79.84 Long term (current) use of oral hypoglycemic drugs; Z79.899 Other long term (current) drug therapy; Z68.43 Body mass index [BMI] 50.0-59.9, adult
CPT/HCPCS: 99283; A9270